=== PATIENT | female | born 1960 | race Caucasian/White ===

== ENCOUNTER 2016-12-15 10:02 | Emergency (ER) | payer OTHER, MEDICARE ==
[~2016-12-15] VITALS: Ht 165.1 cm; Wt 86.2 kg
[~2016-12-15 10:02] MED LIST: ABILIFY 15MG15 MG PO; ADDERALL20 MG PO; ADVAIR DISKUS 21 DSK INH; BIAXIN FILMTAB250 MG PO; CHANTIX0.5 MG PO; FLOMAX(MONOGRA0.4 MG PO; MIRALAX17 GM PO; MS CONTIN30 MG PO; MS CONTIN60 MG PO; MSIR PO; NICODERM C21 MG/24 H TOP; OSCAL ULTRA 6001 TAB PO; OXYCODONE HCL15 MG PO; PERCOCET 325 MG1 TA2 PO; PREDNISONE 20MG20 MG PO; PROMETH/CODEIN120 ML PO; PROZAC20 M1 PO; SEROQUEL (MONO200 MG PO; SPIRIVA1 PUF INH; Senokot S PO; TRAZODONE100 MG PO; VENTOLIN1 PUF INH; VITAMIN D1000 IU PO
--- NOTE | 2016-12-15 10:22 | ED GENERAL ADULT ---
History of Present Illness General Chief Complaint: Chest Pain Stated Complaint: CP,SOB Source: patient, old records Exam Limitations: no limitations Vital Signs & Intake/Output Vital Signs & Intake/Output Vital Signs Date Time Temp Pulse Resp B/P Pulse O2 O2 Flow FiO2 Ox Delivery Rate 12/15 1151 Room Air Room Air 12/15 1150 96.5 95 20 158/71 93 Room Air Room Air 12/15 1011 97.9 112 20 131/87 99 Room Air Allergies Coded Allergies: MDX - Ibuprofen (Ibuprofen) (Severe, ANAPHALACTIC 01/07/15) MDX - PCN (penicillin) (PCN (PENICILLIN)) (Intermediate, RASH 01/07/15) codeine (Intermediate, RASH 12/15/16) MDX - Ketorolac (From TORADOL) (RASH/HIVES 01/07/15) MDX - Nsaid (Nsaid) (ANAPHYLAXIS 01/07/15) Reconcile Medications Albuterol Sulfate (Ventolin) 1 UNIT PUF 2 PUF INH Q4-6 PRN PRN SOB . Aripiprazole (Abilify) 15 MG TABLET 1 TAB PO QPM MENTAL HEALTH (Reported) Azithromycin 250 MG TABLET 1 DP PO AD lungs 2 the first day followed by 1 for days 2-5 Benzonatate 200 MG CAPSULE 1 CAP PO TID PRN COUGH [place]/Ca/Cu/MG/Mn/Vit C/Vit (Oscal Ultra 600) 1 TAB TAB 1 TAB PO DAILY SUPPLEMENT (Reported) Cholecalciferol (Vitamin D3) 1,000 UNIT TABLET 1 TAB PO DAILY low vit D ( Reported) DEXTROAMPHETAMINE/AMPHETAMINE (Adderall 20 MG Tablet) 20 MG TABLET 1 TAB PO BID MENTAL HEALTH (Reported) Fluoxetine Hydrochloride (Prozac) 20 MG CAP 1 CAP PO DAILY MENTAL HEALTH ( Reported) FLUTICASONE/SALMETEROL (Advair 250-50 Diskus) 250 MCG-50 MCG/DOSE BLST.W.DEV 1 PUFF INH BID COPD (Reported) Morphine Sulfate (Ms Contin) 30 MG TABLET.ER 1 TAB PO BID PRN PAIN OXYCODONE HCL (Oxycodone HCl) 15 MG TABLET 1 TAB PO TID PRN PAIN OXYCODONE HCL/ACETAMINOPHEN (Percocet 5-325 MG Tablet) 325 MG/5 MG TAB 1 TAB PO Q4-6 PRN PRN BREAKTHROUGH PAIN Oxycodone HCl/Acetaminophen (Percocet 5-325 MG Tablet) 5 MG-325 MG TABLET 1 TAB PO Q6H PRN PAIN Prednisone 10 MG TABLET 0 PO DAILY COPD 40 MG FOR 2 DAYS, 30 MG FOR 2 DAYS, 20MG FOR 2 DAYS, 10MG FOR 2 DAYS. Quetiapine Fumarate (Seroquel) 200 MG TABLET 1 TAB PO QPM MENTAL HEALTH ( Reported) Tamsulosin Hydrochloride (Flomax) 0.4 MG CAP.ER.24H 1 CAP PO DAILY KIDNEY STONE Tiotropium [place] (Spiriva) 18 MCG CAP.W.DEV 1 PUFF INH DAILY PRN SOB/ WHEEZING (Reported) TRAZODONE HCL (Trazodone HCl) 100 MG TABLET 1 TAB PO QPM SLEEP (Reported) VARENICLINE TARTRATE (Chantix) 0.5 MG TABLET 1 TAB PO BID SMOKING CESSATION ( Reported) Triage Note: 56 YEAR OLD FEMALE HISTORY OF COPD/PNA, STATES THAT FOR THE PAST WEEK SHE HAS HAD A COUGH CLEAR SPUTUM AND SOB AND INTERMITTANT ALL OVER CP. CP HAS BEEN CONSTANT SINCE LAST PM, NON RADIATING AND INCREASES WHEN SHE TAKES A DEEP BREATH. SINUS TACH ON MONITOR AND O2 SAT 99 % ON RA. Triage Nurses Notes Reviewed? yes HPI: Patient is a 56-year-old female presents complaining of cough, shortness of breath, left-sided chest pain. Cough 1 week, chest pain onset yesterday. Chest pain is a sharp pain is moderate at rest, severe with coughing and deep breath. Patient has been using her inhaler with minimal improvement. Cough is with white sputum production. Patient denies fevers, chills, lower extremity pain, lower extremity swelling Patient received an influenza vaccination this season. Past History Travel History Traveled to [place] past 21 day No Medical History Any Pertinent Medical History? 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) Gastrointestinal: NONE Hepatic: NONE Renal: KIDNEY STONES Musculoskeletal: NONE Psychiatric: NONE Endocrine: NONE Blood Disorders: NONE Cancer(s): NONE QC TECH/Reproductive: NONE History of MRSA: No History of VRE: No History of CDIFF: No Pneumonia Vaccine: 07/03/11 Influenza Vaccine: 07/12/14 Surgical History Surgical History: partial removal of left lung Psychosocial History Who do you live with Significant Other Services at Home None What is your primary language Azerbaijani Tobacco Use: Current Daily Use Daily Tobacco Use Amount/Type: => 5 Cigarettes daily ETOH Use: denies use Illicit Drug Use: denies illicit drug use Family History Family History, If Any: MOTHER FHx: bipolar disorder FATHER FHx: prostate cancer SISTER FH: diabetes mellitus GRANDMOTHER FHx: ovarian cancer Hx Contributory? No Review of Systems Review of Systems Constitutional: Denies: chills, fever. EENTM: Reports: no symptoms. Respiratory: Reports: cough, short of breath, wheezing. Cardiovascular: Reports: chest pain. GI: Reports: no symptoms. Genitourinary: Reports: no symptoms. Musculoskeletal: Reports: no symptoms. Skin: Reports: no symptoms. Neurological/Psychological: Reports: no symptoms. Hematologic/Endocrine: Reports: no symptoms. Physical Exam Physical Exam General Appearance: well developed/nourished, alert, awake Head: atraumatic, normal appearance Eyes: Bilateral: normal appearance, PERRL, EOMI. Ears, Nose, Throat: normal pharynx, normal ENT inspection, hearing grossly normal Neck: normal inspection, supple, full range of motion Respiratory: normal breath sounds, no respiratory distress, lungs clear, mild anterior left chest wall tenderness Cardiovascular: tachycardia, regular rhythm, no appreciable murmur Peripheral Pulses: 2+ dorsalis pedis (R), 2+ dorsalis pedis (L) Gastrointestinal: soft, non-tender Back: normal inspection, normal range of motion Extremities: normal inspection, normal capillary refill, normal range of motion, no edema, no calf tenderness Neurologic/Psych: no motor/sensory deficits, awake, alert, oriented x 3, normal gait, normal mood/affect Skin: intact, normal color, warm/dry Lymphatic: no anterior cervical laron Core Measures ACS in differential dx? Yes ASA ordered for poss ACS? No-ACS ruled out CVA/TIA Diagnosis: No Severe Sepsis Present: No Septic Shock Present: No Progress Differential Diagnoses I considered the following diagnoses in my evaluation of the patient: COPD, CHF, acute coronary syndrome, pulmonary embolism, pleurisy, pneumonia Plan of Care: Orders Procedure Date/time Status LACTIC ACID 12/15 1320 Active Telemetry/Chief Sustainability Officer 12/15 1020 Active TROPONIN LEVEL 12/15 1020 Complete LACTIC ACID 12/15 1020 Complete D-DIMER 12/15 1020 Complete COMPREHENSIVE METABOLIC PANEL 12/15 1020 Complete CBC WITHOUT DIFFERENTIAL 12/15 1020 Complete EKG 12/15 1003 Active Current Medications Sig/Leda Start time Last Medication Dose Stop Time Status Admin Guaifenesin/Codeine 10 ML ONCE ONE 12/15 1030 CAN Phosphate 12/15 1031 (Robitussin AC) Laboratory Tests 12/15/16 1035: Anion Gap 12, Estimated GFR > 60, BUN/Creatinine Ratio 23.3, Glucose 104 H, Lactic Acid 1.9, Calcium 10.3 H, Total Bilirubin 0.6, AST 20, ALT 41, Alkaline Phosphatase 103, Troponin I < 0.01, Total Protein 7.8, Albumin 4.8, Globulin 3.0 , Albumin/Globulin Ratio 1.6, D-Dimer < 200, CBC w Diff NO MAN DIFF REQ, RBC 5.34, MCV 90.3, MCH 29.8, RDW 13.9, MPV 7.8, Gran % 58.1, Lymphocytes % 34.4, Monocytes % 5.1, Eosinophils % 2.2, Basophils % 0.2, Absolute Granulocytes 5.1, Absolute Lymphocytes 3.0, Absolute Monocytes 0.4, Absolute Eosinophils 0.2, Absolute Basophils 0, PUBS MCHC 33.0 12/15/2016 12:03:10 PM: Discussed with Dr. Hope: Place patient on prednisone taper starting with 40 mg and decrease by 10 mg every 2 days, azithromycin, have patient contact the office when she has completed the prednisone taper for follow-up. Patient's chest pain greater than 12 hours with negative troponin and no ischemic EKG changes. D-dimer negative, chest x-ray unremarkable. Patient ambulatory without respiratory distress. Appears stable for discharge with outpatient follow-up. (REYNA STEVEN,PEDRO) Diagnostic Imaging: Viewed by Me: Radiology Read. Discussed w/RAD: Radiology Read. Radiology Impression: PATIENT: MICHEAL CORTEZ PRESENT AGE: 56 PATIENT ACCOUNT NO: [id number] : 56 LOCATION: [facility] ORDERING PHYSICIAN: PEDRO STEVEN SERVICE DATE: 12/15/16 EXAM TYPE: RAD - XRY-CHEST XRAY, PA AND LATERAL EXAMINATION: XR CHEST CLINICAL INFORMATION: Cough with sputum production, dyspnea, and chest pain COMPARISON: 08/30/2016 TECHNIQUE : 2 views of the chest were obtained. FINDINGS: The cardiomediastinal silhouette is normal. The lungs are clear with increased lucency in the upper lobes, unchanged. No consolidation, pulmonary edema, pleural effusion, or pneumothorax. Mild multilevel degenerative changes of the spine without acute osseous abnormality. IMPRESSION: No acute abnormality. DICTATED BY: NIALL LU MD DATE/TIME DICTATED:12/15/161138 HEADING MACHINE OPERATOR:NORRIS DATE/TIME TRANSCRIBED:12/15/161138 CONFIDENTIAL, DO NOT COPY WITHOUT APPROPRIATE AUTHORIZATION. <Electronically signed in Other Vendor System> SIGNED BY: NIALL LU MD 12/15/16 1144 Initial ED EKG: sinus tachycardia 111 bpm normal axis, normal intervals, no acute ST/T-wave abnormalities Prior EKG: unchanged Rhythm Strip: normal sinus rhythm Departure Departure Disposition: HOME OR SELF CARE Condition: Stable Clinical Impression Primary Impression: COPD exacerbation Secondary Impressions: Pleuritic chest pain Referrals: BALBIR HOPE MD Additional Instructions: Follow-up with your drilling contractor for further evaluation. Call Dr. Hope when you have completed the Prednisone. Use your albuterol inhaler every 4 hours as needed for shortness of breath and wheezing. Return to the ER if breathing worsening, unable to stay hydrated or worsening of symptoms. Departure Forms: Customer Survey General Discharge Information Prescriptions: Current Visit Scripts Azithromycin 1 DP PO AD #6 TAB 2 the first day followed by 1 for days 2-5 Prednisone 0 PO DAILY #20 TAB 40 MG FOR 2 DAYS, 30 MG FOR 2 DAYS, 20MG FOR 2 DAYS, 10MG FOR 2 DAYS. Benzonatate 1 CAP PO TID PRN COUGH #30 CAP Oxycodone HCl/Acetaminophen (Percocet 5-325 MG Tablet) 1 TAB PO Q6H PRN PAIN #8 TAB Critical Care Note Critical Care Note Critical Care Time: non-applicable
[2016-12-15 10:48] LABS: ABSOLUTE BASOPHIL COUNT 0 /CUMM (0.0-0.2); ABSOLUTE EOSINOPHIL COUNT 0.2 /CUMM (0.0-0.7); ABSOLUTE GRANULOCYTE CT 5.1 /CUMM (1.4-6.5); ABSOLUTE MONOCYTE COUNT 0.4 /CUMM (0.10-0.60); BASOPHIL % 0.2 % (0.0-2.0); EOSINOPHIL % 2.2 % (0-5); GRANULOCYTE % 58.1 % (42.2-75.2); HEMATOCRIT 48.2 % (37-47); MEAN CORPUSCULAR HGB 29.8 PG (27.0-31.0); MEAN CORPUSCULAR VOLUME 90.3 FL (81.0-99.0); MEAN PLATELET VOLUME 7.8 FL (7.4-10.4); PLATELET COUNT 197 /CUMM (130-400); RBC DISTRIBUTION WIDTH 13.9 % (11.5-14.5); RED BLOOD CELL CT 5.34 /CUMM (4.20-5.40); WHITE BLOOD CELL COUNT 8.8 /CUMM (4.8-10.8)
--- NOTE | 2016-12-15 11:44 | RADIOLOGY REPORT ---
EXAMINATION: XR CHEST CLINICAL INFORMATION: Cough with sputum production, dyspnea, and chest pain COMPARISON: 08/30/2016 TECHNIQUE: 2 views of the chest were obtained. FINDINGS: The cardiomediastinal silhouette is normal. The lungs are clear with increased lucency in the upper lobes, unchanged. No consolidation, pulmonary edema, pleural effusion, or pneumothorax. Mild multilevel degenerative changes of the spine without acute osseous abnormality. IMPRESSION: No acute abnormality.
[2016-12-15 11:50] VITALS: BP 158/71
[2016-12-15] MEDS ORDERED: PERCOCET 5-3251 EACH PO (12:07)
[2016-12-15] MEDS ORDERED: BENZONATATE200 M1 PO (12:07)
[2016-12-15] MEDS ORDERED: PREDNISONE10 M2 PO (12:07)
[2016-12-15] MEDS ORDERED: AZITHROMYCIN250 M1 PO (12:07)
== END 2016-12-15 12:24 ==
LOC: ERH 10:02
PROVIDERS: Physician Assistant
DX: J44.1 Chronic obstructive pulmonary disease with (acute) exacerbation (principal); R07.89 Other chest pain; F17.210 Nicotine dependence, cigarettes, uncomplicated
CPT/HCPCS: 93005; 93010; 96374; 96375; J2930

== ENCOUNTER 2017-09-30 08:39 | Inpatient (IN) | payer OTHER ==
[~2017-09-30] VITALS: Ht 165.1 cm; Wt 86.2 kg
[~2017-09-30 08:39] MED LIST changes: +ABILIFY10 M1 PO; +ADVAIR 250-501 EACH INH; +AZITHROMYCIN250 M1 PO; +AZITHROMYCIN500 M3 PO; +BENZONATATE200 M1 PO; +GUAIFENESI100 MG/5 M PO; +LEVAQUIN500 M1 PO; +LYRICA25 M1 PO; +PERCOCET 5-3251 EACH PO; +PREDNISONE10 M2 PO; +PREDNISONE20 M1 PO; +PROAIR HFA8.5 GM INH; +PROZAC20 M2 PO; +SPIRIVA18 MCG INH; +TRAMADOL HCL50 M1 PO; +VALIUM5 M2 PO
--- NOTE | 2017-09-30 08:47 | ED DYSPNEA/ASTHMA COMPLAINT ---
History of Present Illness General Chief Complaint: Dyspnea (COPD, CHF, Other) Stated Complaint: DIFF BREATHING Source: patient, old records, EMS Exam Limitations: no limitations Vital Signs & Intake/Output Vital Signs & Intake/Output Vital Signs Date Time Temp Pulse Resp B/P B/P Pulse O2 O2 Flow FiO2 Mean Ox Delivery Rate 09/30 1029 100.4 106 20 121/67 93 Nasal 2.0L Cannula 09/30 1017 99.7 09/30 0901 118 22 93 Room Air 09/30 0851 Room Air 09/30 0843 99.7 128 21 150/80 98 Nasal 4.0L Cannula Allergies Coded Allergies: NSAIDS (Non-Steroidal Anti-Inflamma (Severe, ANAPHYLAXIS 03/23/17) ibuprofen (Severe, ANAPHYLAXIS 03/23/17) Penicillins (Intermediate, RASH 03/23/17) codeine (Intermediate, RASH 12/15/16) gabapentin (Intermediate, SWOLLEN FEET 03/23/17) ketorolac (Intermediate, RASH\HIVES 03/23/17) Reconcile Medications Albuterol Sulfate (Proair Hfa) 90 MCG HFA.AER.AD 2 PUF INH PRN COPD/EMPHYSEMA (Reported) Aripiprazole (Abilify) 10 MG TABLET 1 TAB PO QAM MENTAL HEALTH (Reported) Fluoxetine HCl (Prozac) 20 MG CAPSULE 1 CAP PO QAM MENTAL HEALTH (Reported) Fluticasone/Salmeterol (Advair 250-50 Diskus) 250 MCG-50 MCG/DOSE BLST.W.DEV 1 PUF INH BID COPD/EMPHYSEMA (Reported) Tiotropium [place] (Spiriva) 18 MCG CAP.W.DEV 1 CAP INH DAILY COPD/EMPHYSEMA (Reported) Triage Note: PT BIBA FOR DIFF BREATHING.. HX COPD AND EMPHYSEMA GRANDCHILDREN HAVE BEEN ILL THIS WEEK AND PT WAS BABYSITTING THEM. RIGHT UPPER LOBE REMOVAL PER PT.. PT WHEEZING THROUGHOUT. PT STATES SHE GETS SOB ON EX, 20 LAC STARTED IN FIELD. FINGER STICK 127 PER EMS Triage Nurses Notes Reviewed? yes HPI: Patient presents with a four-day history of worsening shortness of breath and coughing. Patient has a history of COPD and emphysema. Patient was babysitting her grandchildren and they had URI type symptoms. Patient has had subjective fevers and chills. She states that she has a home O2 saturation monitor and this morning her oxygen saturation was 83% and it decreased down to 80% with ambulation. Patient has had a productive cough with brown sputum. Patient states he is now getting chest and back pain with the coughing. The pain is sharp in nature. The pain radiates as noted above. The pain is exacerbated with coughing. At its worst the pain is 10 out of 10. Past History Travel History Traveled to [place] past 21 day No Medical History Any Pertinent Medical History? 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 MANAGER/Reproductive: NONE History of MRSA: No History of VRE: No History of CDIFF: No Surgical History Surgical History: appendectomy, hysterectomy, partial removal of left lung appendicectomy Schwanoma(L4,5) removal in 1992 Psychosocial History Who do you live with Significant Other Services at Home None What is your primary language Danish Tobacco Use: Quit >30 days ago ETOH Use: denies use Illicit Drug Use: denies illicit drug use Family History Family History, If Any: MOTHER FHx: bipolar disorder FATHER FHx: prostate cancer SISTER FH: diabetes mellitus GRANDMOTHER FHx: ovarian cancer Hx Contributory? No Review of Systems Review of Systems Constitutional: Reports: see HPI, chills, fever. EENTM: Reports: no symptoms. Respiratory: Reports: see HPI, cough, short of breath, sputum production, wheezing. Cardiovascular: Reports: see HPI, chest pain. GI: Reports: no symptoms. Genitourinary: Reports: no symptoms. Musculoskeletal: Reports: see HPI, back pain. Skin: Reports: no symptoms. Neurological/Psychological: Reports: no symptoms. Hematologic/Endocrine: Reports: no symptoms. Immunologic/Allergic: Reports: no symptoms. All Other Systems: Reviewed and Negative Physical Exam Physical Exam General Appearance: well developed/nourished, alert, awake, anxious, moderate distress Head: atraumatic, normal appearance Eyes: Bilateral: PERRL, EOMI. Ears, Nose, Throat: normal pharynx, normal ENT inspection Neck: normal inspection, supple, full range of motion Respiratory: decreased breath sounds, rhonchi, wheezing, respiratory distress Cardiovascular: regular rate/rhythm, normal peripheral pulses Gastrointestinal: normal bowel sounds, soft Extremities: normal inspection, normal capillary refill, normal range of motion, no edema Neurologic/Psych: no motor/sensory deficits, awake, alert, oriented x 3, normal mood/affect Skin: intact, normal color, warm/dry Lymphatic: no anterior cervical laron Core Measures ACS in differential dx? No CVA/TIA Diagnosis No Sepsis Present: No Sepsis Focused Exam Completed? No Progress Differential Diagnosis: asthma, AMI, bronchitis, CHF, COPD, pulmonary embolism, pneumonia, pneumothorax Plan of Care: Orders Procedure Date/time Status Regular Diet 09/30 D Active ED Holding Orders 09/30 1224 Active Admit to inpatient 09/30 1224 Active Vital Signs 09/30 1224 Active Code Status 09/30 1224 Active RAPID VIRAL INFLUENZA A 09/30 0846 Complete BLOOD CULTURE 09/30 0846 Active URINALYSIS 09/30 0846 Complete TROPONIN LEVEL 09/30 0846 Complete LACTIC ACID 09/30 0846 Complete COMPREHENSIVE METABOLIC PANEL 09/30 0846 Complete CBC WITHOUT DIFFERENTIAL 09/30 0846 Complete EKG 09/30 0846 Active Current Medications Sig/Leda Start time Last Medication Dose Stop Time Status Admin Azithromycin 500 MG ONCE ONE 09/30 1000 CAN (Zithromax) 09/30 1300 Sodium Chloride 250 ML (Normal Saline 0.9%) Laboratory Tests 09/30/17 1146: Lactic Acid Cancelled 09/30/17 1109: Urine Color YEL, Urine Clarity HAZY H, Urine pH 6.0, Ur Specific [place] 1.025, Urine Protein TRACE H, Urine Ketones 15 H, Urine Nitrite NEG, Urine Bilirubin NEG@ICTO, Urine Urobilinogen 0.2, Ur Leukocyte Esterase TRACE H, Ur Microscopic SEDIMENT EXAMINED, Urine RBC 5-10 H, Urine WBC 1-3 H, Ur Epithelial Cells FEW, Urine Bacteria MOD H, Urine Hemoglobin MOD H, Urine Glucose NEG 09/30/17 0945: Anion Gap 14, Estimated GFR > 60, BUN/Creatinine Ratio 24.0, Glucose 124 H, Lactic Acid 1.2, Calcium 10.0, Total Bilirubin 0.4, AST 26, ALT 41, Alkaline Phosphatase 106, Troponin I < 0.01, Total Protein 7.4, Albumin 4.5, Globulin 2.9 , Albumin/Globulin Ratio 1.6, CBC w Diff NO MAN DIFF REQ, RBC 5.05, MCV 91.6, MCH 30.5, RDW 13.2, MPV 8.2, Gran % 81.2 H, Lymphocytes % 12.9 L, Monocytes % 4.5, Eosinophils % 1.2, Basophils % 0.2, Absolute Granulocytes 6.6 H, Absolute Lymphocytes 1.0 L, Absolute Monocytes 0.4, Absolute Eosinophils 0.1, Absolute Basophils 0, PUBS MCHC 33.2 Microbiology 09/30 1038 NASOPHARYN: Influenza Virus A & B Rapid Smear - COMP 09/30 945 BLOOD: Blood Culture - RECD 09/30 930 BLOOD: Blood Culture - RECD Diagnostic Imaging: Viewed by Me: Radiology Read. Discussed w/RAD: Radiology Read. CXR Impression: PATIENT: MICHEAL CORTEZ PRESENT AGE: 57 PATIENT ACCOUNT NO: [id number] : 56 LOCATION: [facility] ORDERING PHYSICIAN: Kayden Maloney MD SERVICE DATE: 09/30/17 EXAM TYPE: RAD - XRY-CHEST XRAY, TWO VIEWS EXAMINATION: XR CHEST CLINICAL INFORMATION: Productive cough COMPARISON: 07/19/2017 TECHNIQUE: 2 views of the chest were obtained. FINDINGS: The cardiac silhouette is not enlarged. Moderate peribronchial thickening is seen most prominent in the right lower lobe. No focal consolidation or pleural effusion. There is a moderate thoracic kyphosis. IMPRESSION: Moderate small airways changes identified with peribronchial thickening which may reflect bronchitis/asthma. The findings are slightly more prominent than prior. No focal consolidation or pleural effusion. DICTATED BY: Khalif Taveras MD DATE/TIME DICTATED:09/30/17936 PIECE JOBBER:NORRIS DATE/TIME TRANSCRIBED:936 CONFIDENTIAL, DO NOT COPY WITHOUT APPROPRIATE AUTHORIZATION. < Electronically signed in Other Vendor System> SIGNED BY: Khalif Taveras MD 09/30/17941 Initial ED EKG: S TACH, IVCD, NSSTT CHANGES, NO CHNAGE FROM PRIOR Prior EKG: unchanged Rhythm Strip: sinus tachycardia Comments: Patient is feeling slightly better. We will check an ambulatory room air saturation. AMB RA SAT 89% AND PT BECAME SYMPTOMATIC Departure Departure Disposition: STILL A PATIENT Condition: Fair Clinical Impression Primary Impression: COPD exacerbation Referrals: Patient Has No Primary Care Dr (PCP/Family) Departure Forms: Customer Survey General Discharge Information Admission Note Spoke With: Katherine Acosta MD Documentation of Exam: Documentation of any treatments & extenuating circumstances including Concerns Regarding Discharge (functional status, medication knowledge or non-compliance, living conditions, etc.) that warrant an admission rather than observation: [IV ABX, IV STEROIDS, NEBS, PULM CONSULT, RESP EVAL AND TREATMENT] Critical Care Note Critical Care Note Critical Care Time: non-applicable
--- NOTE | 2017-09-30 09:42 | RADIOLOGY REPORT ---
EXAMINATION: XR CHEST CLINICAL INFORMATION: Productive cough COMPARISON: 07/19/2017 TECHNIQUE: 2 views of the chest were obtained. FINDINGS: The cardiac silhouette is not enlarged. Moderate peribronchial thickening is seen most prominent in the right lower lobe. No focal consolidation or pleural effusion. There is a moderate thoracic kyphosis. IMPRESSION: Moderate small airways changes identified with peribronchial thickening which may reflect bronchitis/asthma. The findings are slightly more prominent than prior. No focal consolidation or pleural effusion.
[2017-09-30 10:02] LABS: ABSOLUTE BASOPHIL COUNT 0 /CUMM (0.0-0.2); ABSOLUTE EOSINOPHIL COUNT 0.1 /CUMM (0.0-0.7); ABSOLUTE GRANULOCYTE CT 6.6 /CUMM (1.4-6.5); ABSOLUTE MONOCYTE COUNT 0.4 /CUMM (0.10-0.60); BASOPHIL % 0.2 % (0.0-2.0); EOSINOPHIL % 1.2 % (0-5); GRANULOCYTE % 81.2 % (42.2-75.2); HEMATOCRIT 46.3 % (37-47); MEAN CORPUSCULAR HGB 30.5 PG (27.0-31.0); MEAN CORPUSCULAR HGB CONC 33.2 G/DL (33.0-37.0); MEAN CORPUSCULAR VOLUME 91.6 FL (81.0-99.0); MEAN PLATELET VOLUME 8.2 FL (7.4-10.4); PLATELET COUNT 205 /CUMM (130-400); RBC DISTRIBUTION WIDTH 13.2 % (11.5-14.5); RED BLOOD CELL CT 5.05 /CUMM (4.20-5.40); WHITE BLOOD CELL COUNT 8.1 /CUMM (4.8-10.8)
--- NOTE | 2017-09-30 14:03 | Admission Certification ---
Admission Certification Certification Statement - As attending physician, I certify that at the time of - admission, based on clinical presentation, severity of - symptoms, need for further diagnostic testing and - therapeutic interventions, and risk of adverse outcomes - without in-hospital treatment, in my clinical assessment, - this patient requires an acute hospital stay for a minimum - of two nights or longer. I have also considered psychsocial - factors such as support system, advanced age, financial - issues, cognitive issues, and failed out-patient treatments, - past re-admission history, safety of patient, and lack of - compliance as applicable. Specific rationale supporting this admission is: Acute COPD exacerbation with acute hypoxemic respiratory failure.
--- NOTE | 2017-09-30 14:03 | History & Physical ---
Desmond Villanueva 09/30/17 1402: General Information and HPI MD Statement: I have seen and personally examined MICHEAL CORTEZ and documented this H&P. The patient is a 57 year old F who presented with a patient stated chief complaint of shortness of breath. Source of Information: patient Exam Limitations: no limitations History of Present Illness: Ms. Cortez is 57 year old woman with COPD not on home O2, recurrent bronchitis, left lung upper lobectomy for suspected cancer in 2003, bipolar disorder, depression presented to the ED this morning for shortness of breath, wheezing, pleuritic chest pain and cough. Symptoms started day before yesterday, cough with chest tightness. Cough is productive, initially greenish yellow sputum, with subsequent expectorations of brown sputum and occasional blood streaks 2. No fevers, chills last night, requiring cold" 5 blankets to keep her warm". No recorded temperatures at home. Patient also developed severe shortness of breath to point that she could only walk less than 10 feet without dyspnea. O2 sats dropped low 80s last night. She had persistent wheezing, and used her albuterol inhaler multiple times last night with no effect. Of note, patient has not required her albuterol inhaler since , when she had her last exacerbation/bronchitis. This episode was treated as an outpatient by Dr. Lopez with prednisone and? Azithromycin. Compliant with her inhalers. Continues to smoke, approximately 4 cigarettes a day. Pleuritic chest pain-described as chest tightness, lasting around 40 minutes, worse with breathing and coughing, not positional. Occasional palpitations, no radiation. No orthopnea or PND. Recent onset leg swelling. No recent change in her medication list. Sick contacts-grandchildren with cough-nonproductive. No recent travel. No history of clots in legs or lungs. Family history significant for early heart attack in father and heart disease in mother. No urinary symptoms. No GI symptoms. Received flu shot this year. Pneumonia shot 5 years ago. Other systems reviewed and negative, exceptions above. Allergies/Medications Allergies: Coded Allergies: NSAIDS (Non-Steroidal Anti-Inflamma (Severe, ANAPHYLAXIS 03/23/17) ibuprofen (Severe, ANAPHYLAXIS 03/23/17) Penicillins (Intermediate, RASH 03/23/17) codeine (Intermediate, RASH 12/15/16) gabapentin (Intermediate, SWOLLEN FEET 03/23/17) ketorolac (Intermediate, RASH\\HIVES 03/23/17) Home Med list Albuterol Sulfate (Proair Hfa) 90 MCG HFA.AER.AD 2 PUF INH PRN COPD/EMPHYSEMA (Reported) Aripiprazole (Abilify) 10 MG TABLET 1 TAB PO QAM MENTAL HEALTH (Reported) Fluoxetine HCl (Prozac) 20 MG CAPSULE 1 CAP PO QAM MENTAL HEALTH (Reported) Fluticasone/Salmeterol (Advair 250-50 Diskus) 250 MCG-50 MCG/DOSE BLST.W.DEV 1 PUF INH BID COPD/EMPHYSEMA (Reported) Tiotropium [place] (Spiriva) 18 MCG CAP.W.DEV 1 CAP INH DAILY COPD/EMPHYSEMA (Reported) Past History Travel History Traveled to [place] past 21 day No Medical History Neurological: NONE EENT: NONE Cardiovascular: NONE Respiratory: COPD, emphysema, MASS (IN R LUNG) LT UPPER LOBECTOMY Gastrointestinal: NONE Hepatic: NONE Renal: KIDNEY STONES Musculoskeletal: NONE Psychiatric: NONE Endocrine: NONE Blood Disorders: NONE Cancer(s): NONE FISH FARMER/Reproductive: NONE History of MRSA: No History of VRE: No History of CDIFF: No Isolation History: Standard Surgical History Surgical History: appendectomy, hysterectomy, partial removal of left lung appendicectomy Schwanoma(L4,5) removal in 1992 Past Family/Social History Family History Relations & Conditions if any MOTHER FHx: bipolar disorder FATHER FHx: prostate cancer SISTER FH: diabetes mellitus GRANDMOTHER FHx: ovarian cancer Psychosocial History Who Do You Live With? boyfriend and his son Services at Home: None Primary Language: Armenian ETOH Use: denies use Illicit Drug Use: denies illicit drug use Living Will? no Functional Ability ADLs Independent: dressing, eating, toileting, bathing. Ambulation: independent IADLs Independent: shopping, housework, finances, food prep, telephone, transportation. Review of Systems Review of Systems Constitutional: Reports: see HPI. Exam & Diagnostic Data Last 24 Hrs of Vital Signs/I&O Vital Signs Date Time Temp Pulse Resp B/P B/P Pulse O2 O2 Flow FiO2 Mean Ox Delivery Rate 09/30 1256 100.1 109 20 122/70 93 Nasal 2.0L Cannula 09/30 1029 100.4 106 20 121/67 93 Nasal 2.0L Cannula 09/30 1017 99.7 09/30 0901 118 22 93 Room Air 09/30 0851 Room Air 09/30 0843 99.7 128 21 150/80 98 Nasal 4.0L Cannula Intake & Output 09/30 1600 09/30 0800 09/30 0000 Intake Total Output Total Balance Patient 190 lb Weight Weight Reported by Patient Measurement Method Physical Exam General Appearance Alert, Oriented X3, Cooperative, No Acute Distress Skin No Rashes, No Breakdown HEENT Atraumatic, PERRLA, EOMI, Mucous Membr. moist/pink Neck Supple Lymphatic Axillary nl, Cervical nl Cardiovascular Regular Rate, Normal S1, Normal S2 Lungs Clear to Auscultation, Normal Air Movement, Expiratory wheezes bilateral diffuse. Abdomen Normal Bowel Sounds, Soft, No Tenderness Extremities Normal Pulses, No Tenderness/Swelling, Trace edema Last 24 Hrs of Labs/Dg: Laboratory Tests 09/30/17 1146: Lactic Acid Cancelled 09/30/17 1109: Urine Color YEL, Urine Clarity HAZY H, Urine pH 6.0, Ur Specific [place] 1.025, Urine Protein TRACE H, Urine Ketones 15 H, Urine Nitrite NEG, Urine Bilirubin NEG@ICTO, Urine Urobilinogen 0.2, Ur Leukocyte Esterase TRACE H, Ur Microscopic SEDIMENT EXAMINED, Urine RBC 5-10 H, Urine WBC 1-3 H, Ur Epithelial Cells FEW, Urine Bacteria MOD H, Urine Hemoglobin MOD H, Urine Glucose NEG 09/30/17 0945: Anion Gap 14, Estimated GFR > 60, BUN/Creatinine Ratio 24.0, Glucose 124 H, Lactic Acid 1.2, Calcium 10.0, Total Bilirubin 0.4, AST 26, ALT 41, Alkaline Phosphatase 106, Troponin I < 0.01, Total Protein 7.4, Albumin 4.5, Globulin 2.9 , Albumin/Globulin Ratio 1.6, CBC w Diff NO MAN DIFF REQ, RBC 5.05, MCV 91.6, MCH 30.5, RDW 13.2, MPV 8.2, Gran % 81.2 H, Lymphocytes % 12.9 L, Monocytes % 4.5, Eosinophils % 1.2, Basophils % 0.2, Absolute Granulocytes 6.6 H, Absolute Lymphocytes 1.0 L, Absolute Monocytes 0.4, Absolute Eosinophils 0.1, Absolute Basophils 0, PUBS MCHC 33.2 Microbiology 09/30 1038 NASOPHARYN: Influenza Virus A & B Rapid Smear - COMP 09/30 945 BLOOD: Blood Culture - RECD 09/30 930 BLOOD: Blood Culture - RECD Diagnostic Data EKG Results Sinus Tachy Unchanged compared to previous EKG CXR Results IMPRESSION: Moderate small airways changes identified with peribronchial thickening which may reflect bronchitis/asthma. The findings are slightly more prominent than prior. No focal consolidation or pleural effusion. Assessment/Plan Assessment: 57-year-old woman with past medical history of COPD, recurrent bronchitis, bipolar disorder, depression here with shortness of breath, wheezing, productive cough continues to smoke actively recent discharges, last one in July with COPD exacerbation to be Admitted to general medicine floors for acute COPD exacerbation associated with hypoxemia. In the ED, patient is saturating well on 2 L, coughs with deep inspirations, able to complete sentences and maintain conversation. Of concern is her low- grade fever of 100.4, but with normal white count of lateral etiology is much more likely. 1. Acute COPD exacerbation and hypoxemia: Solu-Medrol 40 every 6 hours. TRC. Continue nebulizer treatments/home inhalers. Sputum culture. Hold off antibiotics for now. Monitor white count and fevers. Encourage by mouth intake , keep hydrated. 2. Chest pain syndrome: Likely related to her bronchitis. IV Tylenol when necessary. Unchanged EKG, tachycardia likely related to worsening breathing and anxiety. Rule out ACS with serial troponins and EKG. Check BNP (mild JVP on exam and trace bilateral lower extremity edema). Very low probability for PE. 3. Bipolar disorder: Continue home medications. Full code Regular diet. Pharmacological and mechanical DVT prophylaxis. As Ranked By This Provider Problem List: 1. COPD Core Measures/Misc (06/18) Acute Coronary Syndrome ACS Diagnosis: No Congestive Heart Failure Congestive Heart Failure Diagnosis No Cerebrovascular Accident CVA/TIA Diagnosis: No VTE (View Protocol) VTE Risk Factors Age>40 No Mechanical VTE Prophylaxis d/t Other No VTE Pharm Prophylaxis d/t Other Sepsis (View protocol) Sepsis Present: No Katherine Acosta MD 09/30/17 1449: Attending MD Review Statement Attending Statement Attending MD Statement: examined this patient, discuss w/resident/PA/BLACKSMITH HELPER, agreed w/resident/PA/BLACKSMITH HELPER, reviewed EMR data (avail), reviewed images Attending Assessment/Plan: 57-year-old female past medical history of COPD and bronchitis in June and July of this year, active tobacco use down to 4-5 cigarettes a day, previous right upper lobe lobectomy for suspected malignancy who is coming in with what appears to be an acute COPD exacerbation. She doesn't have any pneumonia on physical exam, her flu swab was negative but she did have multiple sick contacts with her grandchildren. In addition she has acute hypoxemic respiratory failure as evidenced by a room air sat of 83% and a sat of 89% on ambulation. Will bring her into [facility] med, treat her with IV steroids, TRC with nebs and give her azithromycin for a bacterial bronchitis. Put her on DVT prophylaxis, continue her psychiatric medications, tobacco cessation counseling and follow closely.
[2017-09-30 14:43] VITALS: BP 130/70
[2017-09-30 22:33] VITALS: BP 128/60
[2017-10-01 06:30] VITALS: BP 138/74
--- NOTE | 2017-10-01 07:25 | PN- Housestaff ---
[facility] 0724: Subjective Follow-up For: Acute on chronic hypoxic respiratory failure due to COPD exacerbation. Subjective: No overnight events. Patient remained afebrile overnight. Patient seen and examined this morning. She denied any chest pain, chills, fever, abdominal pain , lightheadedness, palpitation and dysuria. Patient still feeling dizzy or short of breath especially on exertion. She is using 2 L of oxygen and maintaining saturation 91%. Patient complaining of back pain 04/10. Patient has chronic back pain issues. She is eating and drinking fine. Review of Systems Constitutional: Reports: no symptoms. EENTM: Reports: no symptoms. Cardiovascular: Reports: no symptoms. Respiratory: Reports: short of breath. Gastrointestinal: Reports: no symptoms. Genitourinary: Reports: no symptoms. Musculoskeletal: Reports: back pain. Neurological/Psychological: Reports: no symptoms. Objective Last 24 Hrs of Vital Signs/I&O Vital Signs Date Time Temp Pulse Resp B/P B/P Pulse O2 O2 Flow FiO2 Mean Ox Delivery Rate 10/01 0845 93 Nasal 2.0L Cannula 10/01 0630 98.1 108 22 138/74 91 Nasal Cannula 10/01 0000 Nasal 2.0L Cannula 09/30 2233 97.8 93 22 128/60 92 Nasal Cannula 09/30 2224 Nasal 2.0L Cannula 09/30 1600 Nasal 2.0L Cannula 09/30 1443 98.3 113 20 130/70 94 Nasal 2.0L Cannula 09/30 1441 93 Nasal 2.0L Cannula 09/30 1256 100.1 109 20 122/70 93 Nasal 2.0L Cannula 09/30 1029 100.4 106 20 121/67 93 Nasal 2.0L Cannula 09/30 1017 99.7 Intake & Output 10/01 1600 10/01 0800 10/01 0000 Intake Total 200 Output Total Balance 200 Intake, Oral 200 Physical Exam General Appearance: Alert, Oriented X3, Cooperative, No Acute Distress Skin Temp/Moisture Exam: Warm/Dry HEENT: Atraumatic, PERRLA, EOMI Neck: Supple Cardiovascular: Normal S1, Normal S2 Lungs: wheezing b/l with decreased air movement Abdomen: Soft, No Tenderness Neurological: Normal Speech, Strength at 5/5 X4 Ext, Normal Tone, Sensation Intact Extremities: No Edema Assessment/Plan Assessment: 57-year-old woman with past medical history of COPD, recurrent bronchitis, bipolar disorder, depression here with shortness of breath, wheezing, productive cough continues to smoke actively recent discharges, last one in July with COPD exacerbation to be Admitted to general medicine floors for acute COPD exacerbation associated with hypoxemia. Acute hypoxic respiratory failure due to COPD exacerbation: -We will continue supplemental oxygen to maintain saturation above 90%. -Patient still had wheezing and exertional dyspnea we will continue IV steroids. -TRC nebulization as needed -We'll follow the sputum and blood cultures. -We will continue azithromycin. Chronic back pain: -We will continue IV morphine every 6 when necessary -We will continue Percocet 1 tablet every 6 when necessary -We will avoid high dose of morphine or opiates to prevent respiratory Depression. Smoking cessation: -Will consult the patient for smoking cessation -We will help her with nicotine patch. Bipolar disorder: -We will continue her home meds. DVT prophylaxis: Mechanical and Lovenox CODE STATUS: Full code Problem List: 1. Back pain 2. Acute respiratory failure with hypoxia 3. COPD exacerbation Pain Ratin Pain Location: back Pain Goal: Pain 4 or less Pain Plan: percocet and morphine fpr moderate to severe pain Tomorrow's Labs & Rationales: cbc/bep Katherine Acosta MD 10/01/17 0901: Attending MD Review Statement Attending Statement Attending MD Statement: examined this patient, discuss w/resident/PA/PLUNGER SHOVEL OPERATOR, reviewed EMR data (avail), discussed with nursing, reviewed images Attending Assessment/Plan: Patient is still fairly short of breath. She says she has a lot of pain and that's from excessive coughing. 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 She is requesting morphine parenterally. I explained at length the dangers of depressing the respiratory status. At this point will order low- dose morphine 2 mg IV every 6 when necessary for moderate pain and Percocet 1 tab every 6 by mouth for mild pain. Given the wheezing in a patient with underlying COPD, here with acute hypoxemic respiratory failure and bronchospasm I will continue the IV steroids as is with by mouth azithromycin for a bacterial bronchitis. And follow closely.
[2017-10-01 09:12] LABS: ABSOLUTE BASOPHIL COUNT 0 /CUMM (0.0-0.2); ABSOLUTE EOSINOPHIL COUNT 0 /CUMM (0.0-0.7); BASOPHIL % 0 % (0.0-2.0); EOSINOPHIL % 0 % (0-5); MEAN CORPUSCULAR HGB 31.1 PG (27.0-31.0); RED BLOOD CELL CT 4.76 /CUMM (4.20-5.40)
[2017-10-01 09:21] LABS: ABSOLUTE GRANULOCYTE CT 12.4 /CUMM (1.4-6.5); ABSOLUTE MONOCYTE COUNT 0.3 /CUMM (0.10-0.60); HEMATOCRIT 43.7 % (37-47); MEAN CORPUSCULAR HGB CONC 33.9 G/DL (33.0-37.0); MEAN CORPUSCULAR VOLUME 91.8 FL (81.0-99.0); MEAN PLATELET VOLUME 8.3 FL (7.4-10.4); PLATELET COUNT 236 /CUMM (130-400); RBC DISTRIBUTION WIDTH 12.9 % (11.5-14.5)
[2017-10-01 09:23] LABS: WHITE BLOOD CELL COUNT 13.7 /CUMM (4.8-10.8)
[2017-10-01 09:41] LABS: GRANULOCYTE % 90.7 % (42.2-75.2)
[2017-10-01 15:30] VITALS: BP 130/64
[2017-10-01 21:20] VITALS: BP 160/82
[2017-10-02 06:21] VITALS: BP 130/78
--- NOTE | 2017-10-02 08:49 | PN- Housestaff ---
Raz KEYS,Kayden 10/02/17 0849: Subjective Follow-up For: Acute on chronic hypoxic respiratory failure COPD exacerbation Subjective: Patient was seen and examined at bedside. She is resting comfortably. She had no acute events overnight. Patient states that overall she is feeling worse, with mild shortness of breath, worsening nonproductive cough. Her chest pain is well-controlled. She currently denies any nausea, vomiting, chills. Review of Systems Constitutional: Denies: chills, fever. Cardiovascular: Denies: chest pain, palpitations. Respiratory: Reports: cough, short of breath. Denies: sputum production, wheezing. Gastrointestinal: Reports: no symptoms. Genitourinary: Reports: no symptoms. Musculoskeletal: Reports: no symptoms. Objective Last 24 Hrs of Vital Signs/I&O Vital Signs Date Time Temp Pulse Resp B/P B/P Pulse O2 O2 Flow FiO2 Mean Ox Delivery Rate 10/02 0830 92 Nasal 2.0L Cannula 10/02 0621 97.3 98 20 130/78 90 Nasal 2.0L Cannula 10/02 0000 90 Nasal 2.0L Cannula 10/01 2120 97.4 113 28 160/82 90 Nasal 2.0L Cannula 10/01 2001 92 Nasal 2.0L Cannula 10/01 1607 90 Nasal 2.0L Cannula 10/01 1600 Nasal 2.0L Cannula 10/01 1530 98.1 115 18 130/64 91 Intake & Output 10/02 1600 10/02 0800 10/02 0000 Intake Total 500 260 Output Total Balance 500 260 Intake, IV 20 20 Intake, Oral 480 240 Physical Exam General Appearance: Alert, Oriented X3, Cooperative Skin Temp/Moisture Exam: Warm/Dry Cardiovascular: Regular Rate, Normal S1, Normal S2 Lungs: diminished breath sounds diffuselywith scant wheezing Abdomen: Normal Bowel Sounds, Soft, No Tenderness Extremities: No Clubbing, No Cyanosis, No Edema Current Medications: Current Medications Sig/Leda Start time Last Medication Dose Route Stop Time Status Admin Acetaminophen 650 MG Q6P PRN 09/30 1400 AC PO Acetaminophen 1,000 MG Q6P PRN 09/30 1400 AC 09/30 IV 1606 Albuterol Sulfate 3 ML EVERY 4 HRS/AWAKE 10/01 0800 AC 10/02 INH 0827 Albuterol Sulfate 2 PUF Q4P PRN 09/30 1415 AC INH Aripiprazole 10 MG QAM 10/01 1000 AC 10/01 PO 0838 Azithromycin 250 MG DAILY 10/01 1000 AC 10/01 PO 10/04 1001 0837 Benzonatate 100 MG Q8H 10/02 1400 AC PO Benzonatate 100 MG TID 10/01 1600 DC 10/02 PO 0457 Budesonide/ 2 PUF BID 09/30 1400 AC 10/01 Formoterol Fumarate INH 2059 Enoxaparin Sodium 40 MG DAILY 10/01 1000 AC 10/01 SC 0839 Fluoxetine HCl 20 MG QAM 10/01 1000 AC 10/01 PO 0838 Guaifenesin 600 MG Q12 09/30 1358 AC 10/01 PO 2059 Methylprednisolone 40 MG Q6 09/30 1800 AC 10/02 IV 10/03 1201 0457 Morphine Sulfate 2 MG Q6P PRN 10/01 0900 AC 10/02 IV 0423 Nicotine 14 MG DAILY 09/30 1708 AC 10/01 TOP 0836 Oxycodone/ 1 TAB Q6P PRN 10/01 0915 AC 10/02 Acetaminophen PO 0554 Ramelteon 8 MG AT BEDTIME 09/30 2200 AC 10/01 PO 205 Tiotropium [place] 1 PUF DAILY 09/30 1400 AC 10/01 INH 0835 Last 24 Hrs of Lab/Dg Results Last 24 Hrs of Labs/Mics: Laboratory Tests 10/02/17 0755: CBC w Diff NO MAN DIFF REQ, RBC 4.62, MCV 92.7, MCH 31.3 H, RDW 13.3, MPV 8.5, Gran % 93.2 H, Lymphocytes % 4.8 L, Monocytes % 2.0, Eosinophils % 0, Basophils % 0, Absolute Granulocytes 18.2 H, Absolute Lymphocytes 0.9 L, Absolute Monocytes 0.4, Absolute Eosinophils 0, Absolute Basophils 0, PUBS MCHC 33.7 Assessment/Plan Assessment: 57-year-old woman with past medical history of COPD, recurrent bronchitis, bipolar disorder, depression here with shortness of breath, wheezing, productive cough continues to smoke actively recent discharges, last one in July with COPD exacerbation to be Admitted to general medicine floors for acute COPD exacerbation associated with hypoxemia. Acute hypoxic respiratory failure due to COPD exacerbation: -We will continue supplemental oxygen to maintain saturation above 90%. -Patient still had some wheezing, diminished breath sounds and exertional dyspnea, she also desaturated to 85% with exertion, we will continue IV steroids. -TRC nebulization as needed -We'll follow the sputum and blood cultures. -We will continue azithromycin. -Leukocytosis most likely secondary to steroids, will monitor CBC -Pulmonary consult with patient's spinning frame tender, Dr. Lopze, in a.m. per patient 's request. Chronic back pain: -We will continue IV morphine every 6 when necessary -We will continue Percocet 1 tablet every 6 when necessary -We will avoid high dose of morphine or opiates to prevent respiratory Depression. Smoking cessation: -Will consult the patient for smoking cessation -We will help her with nicotine patch. Bipolar disorder: -We will continue her home meds. DVT prophylaxis: Mechanical and Lovenox CODE STATUS: Full code Problem List: 1. COPD exacerbation 2. Acute on chronic respiratory failure with hypoxia Pain Ratin Pain Location: none Pain Goal: Remain pain free Pain Plan: pain pathway Tomorrow's Labs & Rationales: cbc Katherine Acosta MD 10/02/17 0950: Attending MD Review Statement Attending Statement Attending MD Statement: examined this patient, discuss w/resident/PA/WATER SOFTENER SERVICE SUPERVISOR, agreed w/resident/PA/WATER SOFTENER SERVICE SUPERVISOR, reviewed EMR data (avail), discussed with nursing, reviewed images Attending Assessment/Plan: Pt still feels very short of breath. She desaturates to 85% on 2 L of oxygen with minimal ambulation. She still sounds very wheezy and very decreased air entry with persistent cough. She is a 57-year-old active tobacco user, we are actively treating for a COPD exacerbation with IV steroids and by mouth Zithromax for a bacterial bronchitis. She has acute hypoxemic respiratory failure as evidenced by a very low O2. She is also on Symbicort and Spiriva. She follows with Dr. Lopez on the outside and she would prefer to wait to see him in a.m. rather than call the covering spinning frame tender. She has a history of heroin addiction, she's been clean for many years and we are treating her with IV morphine now for pain associated with cough.
[2017-10-02 09:33] LABS: ABSOLUTE BASOPHIL COUNT 0 /CUMM (0.0-0.2); ABSOLUTE EOSINOPHIL COUNT 0 /CUMM (0.0-0.7); ABSOLUTE GRANULOCYTE CT 18.2 /CUMM (1.4-6.5); ABSOLUTE LYMPH COUNT 0.9 /CUMM (1.2-3.4); ABSOLUTE MONOCYTE COUNT 0.4 /CUMM (0.10-0.60); BASOPHIL % 0 % (0.0-2.0); EOSINOPHIL % 0 % (0-5); HEMATOCRIT 42.8 % (37-47); MEAN CORPUSCULAR HGB 31.3 PG (27.0-31.0); MEAN CORPUSCULAR HGB CONC 33.7 G/DL (33.0-37.0); MEAN CORPUSCULAR VOLUME 92.7 FL (81.0-99.0); MEAN PLATELET VOLUME 8.5 FL (7.4-10.4); PLATELET COUNT 231 /CUMM (130-400); RBC DISTRIBUTION WIDTH 13.3 % (11.5-14.5); RED BLOOD CELL CT 4.62 /CUMM (4.20-5.40); WHITE BLOOD CELL COUNT 19.5 /CUMM (4.8-10.8)
[2017-10-02 10:16] LABS: GRANULOCYTE % 93.2 % (42.2-75.2)
[2017-10-02 13:58] VITALS: BP 130/90
--- NOTE | 2017-10-02 17:18 | Discharge Summary ---
Visit Information Visit Dates Admission Date: 09/30/17 Discharge Date: 10/10/17 Hospital Course Course Attending Physician: Vanna KEYS,Cesar Shields Primary Care Physician: Patient Has No Primary Care Dr Hospital Course: 57 YO F with COPD not on home O2, recurrent bronchitis, left lung upper lobectomy for suspected cancer in 2003, bipolar disorder, depression presented to the ED this morning for shortness of breath, wheezing, pleuritic chest pain and cough. ED course: Vitals: Temperature 99.7, pulse 128, respiratory 21, blood pressure 150/80, oxygen saturation 98% on 4 L of oxygen Labs: WBC count 8.1, hemoglobin 15.4, hematocrit 46.3, platelet count 205, sodium 142, potassium 4.1, BUN 14, creatinine 0.5, glucose 124, BUNs/creatinine ratio 24.0, troponin less than 0.01 Acute hypoxic respiratory failure due to COPD exacerbation: Initially patient was started on 4 L of oxygen considering her acute hypoxic respiratory failure due to COPD exacerbation to keep her oxygen saturation above 90%. Later on patient's oxygen was weaned off to 2 L. Patient was given IV Solu-Medrol and TRC nebulization.Patient had cough with sputum and also having pleurisy probably due to viral bronchitis. Sputum cultures and blood cultures were obtained initially. Sputum and blood culture remained negative. Patient was given 5 days course of IV azithromycin. Rapid influenza A and B test remained negative. Pulmonology consult was obtained and recommendations were followed. During the hospital course patient desaturated below 88 on 2 L of oxygen. Her oxygen requirement increased to 4 L. Considering patient's tachycardia and increased oxygen requirement there was high suspicion of pulmonary embolism. CTA was done that was negative for PE. Patient remained on 4 L of oxygen and during embolization patient desaturated to 80s. Acetylcysteine was started to help her liquefy the mucus that she was not able to bring up. Later on by mouth Mucinex was given. Considering patient's continuous oxygen requirement even after optimal medical treatment with steroids it was decided to send the patient home with oxygen. Patient was informed that maybe she needs home oxygen this time to keep her oxygen saturation above 90% during ambulation and she agreed with the plan. Patient was instructed to see her skin piler as outpatient for further recommendations and adjustment of the medication. Diarrhea: During the hospital stay patient complained of loose bowel movements. Stools test of cultures were sent that remained negative. Patient was tolerating food there was no abdominal pain and her diarrhea improved by itself. Chronic back pain: To control her back pain IV morphine was given and also Percocet as needed. Smoking cessation: Smoking cessation counseling was done and patient was offered nicotine patch. Bipolar disorder: We continued her home meds. DVT prophylaxis: Mechanical and Lovenox CODE STATUS: Full code Allergies: Coded Allergies: NSAIDS (Non-Steroidal Anti-Inflamma (Severe, ANAPHYLAXIS 03/23/17) ibuprofen (Severe, ANAPHYLAXIS 03/23/17) Penicillins (Intermediate, RASH 03/23/17) codeine (Intermediate, RASH 12/15/16) gabapentin (Intermediate, SWOLLEN FEET 03/23/17) ketorolac (Intermediate, RASH\HIVES 03/23/17) Pertinent Lab Results: Chest x-ray on 09/30/17: IMPRESSION: Moderate small airways changes identified with peribronchial thickening which may reflect bronchitis/asthma. The findings are slightly more prominent than prior. No focal consolidation or pleural effusion. Chest CTA on 10/03/17: IMPRESSION: No pulmonary embolism or other acute intrathoracic abnormality. Postsurgical changes status post left upper lobectomy. Moderate to severe emphysema. VTE: negative WBC count 19.0, hemoglobin 16.0, hematocrit 47.4, platelet count 236, sodium 142 , potassium 4.3, BUN 32, creatinine 0.7, BUN/creatinine ratio 45.7. Disposition Summary Disposition Principal Diagnosis: Acute hypoxic respiratory failure due to COPD exacerbation Acute bronchitis Additional Diagnosis: Chronic back pain Bipolar disorder Discharge Disposition: home or self care Discharge Instructions General Discharge Information Code Status: Full Code Patient's Diet: Regular diet Patient's Activity: Self-limited Follow-Up Instructions/Appts: Follow your primary care physician in one week Follow-up visual skin piler in 1 week Medications at Discharge Discharge Medications: Continue taking these medications: Fluoxetine HCl (Prozac) 20 MG CAPSULE 1 Capsule ORAL Every Morning Comments: Last Taken: 10/10/17 Time: 940AM Aripiprazole (Abilify) 10 MG TABLET 1 Tablet ORAL Every Morning Comments: Last Taken: 10/10/17 Time: 940AM Fluticasone/Salmeterol (Advair 250-50 Diskus) 250 MCG-50 MCG/DOSE BLST.W.DEV 1 Puff Inhale through mouth TWICE DAILY Comments: NOT GIVEN IN HOSPITAL Tiotropium [facility] (Spiriva) 18 MCG CAP.W.DEV 1 Capsule Inhale through mouth DAILY Comments: Last Taken: 10/10/17 Time: 1200 PM Albuterol Sulfate (Proair Hfa) 90 MCG HFA.AER.AD 2 Puff Inhale through mouth as needed for COPD/EMPHYSEMA Comments: Last Taken: 10/10/17 Time: 1217PM Start taking the following new medications: Prednisone (Prednisone) 20 MG TABLET 0 ORAL DAILY Days = 17 No Refills Instructions: On Take 10/11 60 MG 10/12-10/14 50 MG 10/15-10/17 40 MG 10/18-10/20 30 MG 10/21-10/23 20 MG 10/24-10/26 10 MG Then Stop Comments: Last Taken: 10/10/17 Time: 940AM Oxycodone HCl/Acetaminophen (Percocet 5-325 MG Tablet) 5 MG-325 MG TABLET 1 Tablet ORAL EVERY SIX HOURS NEEDED as needed for PAIN SCALE 1-3 (MILD) Qty = 30 No Refills Instructions: . Comments: Last Taken: 10/10/17 Time: 1200PM Copies To: Mendoza Lopez MD
[2017-10-02 22:29] VITALS: BP 140/80
[2017-10-02 22:30] VITALS: BP 148/80
[2017-10-02 22:33] VITALS: BP 148/80
--- NOTE | 2017-10-03 06:05 | Patient Discharge Instructions ---
Discharge Instructions General Discharge Information You were seen/treated for: Acute hypoxic respiratory failure due to COPD exacerbation. Watch for these problems: Shortness of breath, cough with sputum, chest pain, nausea and vomiting. Special Instructions: Follow up with pcp in one week. Follow up with your feed house supervisor in one week. Diet Continue normal diet: Yes Activity Activity Self Limited: Yes Acute Coronary Syndrome Inclusion Criteria At DC or during hospital stay patient has or had the following: ACS DIAGNOSIS No Discharge Core Measures Meds if any: Prescribed or Continued at Discharge Meds if any: NOT Prescribed or Continued at Discharge Congestive Heart Failure Inclusion Criteria At DC or during hospital stay patient has or had the following: CHF DIAGNOSIS No Discharge Core Measures Meds if any: Prescribed or Continued at Discharge Meds if any: NOT Prescribed or Continued at Discharge Cerebrovascular accident Inclusion Criteria At DC or during hospital stay patient has or had the following: CVA/TIA Diagnosis No Discharge Core Measures Meds if any: Prescribed or Continued at Discharge Meds if any: NOT Prescribed or Continued at Discharge Venous thromboembolism Inclusion Criteria VTE Diagnosis No VTE Type NONE VTE Confirmed by (Test) NONE Discharge Core Measures - Per Current guidelines, there needs to be overlap - treatment for the first 5 days of Warfarin therapy. - If discharged on Warfarin prior to 5 days of - overlap therapy, the patient will need to be - assessed for post discharge needs including - *Post discharge parental anticoagulation - *Warfarin and/or parental anticoagulation education - *Follow up date to check INR post discharge At least 5 days overlap therapy as Inpatient No Meds if any: Prescribed or Continued at Discharge Note: Overlap Therapy is Warfarin and Anticoagulant Meds if any: NOT Prescribed or Continued at Discharge
[2017-10-03 06:51] VITALS: BP 144/86
--- NOTE | 2017-10-03 07:30 | PN- Housestaff ---
[facility]: Subjective Follow-up For: Acute on chronic hypoxic respiratory failure COPD exacerbation Acute bronchitis Subjective: No overnight events. Patient remained afebrile overnight. Seen and examined this morning bedside. She was sitting in bed comfortably. Using 4 L of oxygen and maintaining saturation 93%. Patient denied any chest pain, palpitation, chills, fever, lightheadedness, nausea, vomiting, abdominal pain dysuria. Patient reported having dry cough and difficulty bringing any phlegm. Patient also reported having short of breath on exertion. Patient desaturated in 80s on 2 L of oxygen that's why she is getting 4 L now. considering her desaturation we will rule out any possibility of pulmonary embolism. Review of Systems Constitutional: Reports: no symptoms. EENTM: Reports: no symptoms. Respiratory: Reports: cough, short of breath. Gastrointestinal: Reports: no symptoms. Genitourinary: Reports: no symptoms. Musculoskeletal: Reports: no symptoms. Neurological/Psychological: Reports: no symptoms. Objective Last 24 Hrs of Vital Signs/I&O Vital Signs Date Time Temp Pulse Resp B/P B/P Pulse O2 O2 Flow FiO2 Mean Ox Delivery Rate 10/03 0833 93 Nasal 4.0L Cannula 10/03 0800 94 Nasal 4.0L Cannula 10/03 0651 97.9 90 20 144/86 94 Nasal Cannula 10/03 0000 Nasal 4.0L Cannula 10/02 2233 98.3 90 20 148/80 93 10/02 2042 93 Nasal 4.0L Cannula 10/02 2034 Nasal 4.0L Cannula 10/02 1859 91 Nasal 4.0L Cannula 10/02 1600 96 Nasal 4.0L Cannula 10/02 1358 97.6 95 20 130/90 92 Nasal 2.0L Cannula Intake & Output 10/03 1600 10/03 0800 10/03 0000 Intake Total 420 600 Output Total Balance 420 600 Intake, IV 20 Intake, Oral 400 600 Physical Exam General Appearance: Alert, Oriented X3, Cooperative, No Acute Distress Skin Temp/Moisture Exam: Warm/Dry HEENT: Atraumatic, PERRLA, EOMI Neck: Supple Cardiovascular: Normal S1, Normal S2 Lungs: wheezing b/l Abdomen: Soft, No Tenderness Neurological: Normal Speech, Strength at 5/5 X4 Ext, Normal Tone, Sensation Intact Extremities: No Edema Assessment/Plan Assessment: 57-year-old woman with past medical history of COPD, recurrent bronchitis, bipolar disorder, depression here with shortness of breath, wheezing, productive cough continues to smoke actively recent discharges, last one in July with COPD exacerbation to be Admitted to general medicine floors for acute COPD exacerbation associated with hypoxemia. Acute hypoxic respiratory failure due to COPD exacerbation: -We will continue supplemental oxygen to maintain saturation above 90%. -Patient still had some wheezing, diminished breath sounds and exertional dyspnea, she also desaturated to 85% with exertion, we will continue IV steroids. -TRC nebulization as needed -We'll follow the sputum and blood cultures. -We will continue azithromycin. -Leukocytosis most likely secondary to steroids, will monitor CBC -Pulmonary consult with patient's compensation manager, Dr. Lopez, in a.m. per patient 's request. -Considering patient's desaturation on oxygen we will rule out any possibility of pulmonary embolism by ordering CTA. CTA is negative for PE and steroids were changed to Q8 rather than Q6. Acute bronchitis: -we will continue azithromycin. -We will follow the sputum culture -we will get chest physiotherapy to help her bring up sputum. Chronic back pain: -We will continue IV morphine every 6 when necessary -We will continue Percocet 1 tablet every 6 when necessary -We will avoid high dose of morphine or opiates to prevent respiratory Depression. Smoking cessation: -Will consult the patient for smoking cessation -We will help her with nicotine patch. Bipolar disorder: -We will continue her home meds. DVT prophylaxis: Mechanical and Lovenox CODE STATUS: Full code Problem List: 1. COPD exacerbation 2. Acute respiratory failure with hypoxia 3. Bronchitis Pain Ratin Pain Location: none Pain Goal: Remain pain free Pain Plan: tylenol for mild pain Tomorrow's Labs & Rationales: cbc/bep Kimber Stanton MD 10/03/17 1416: Attending MD Review Statement Attending Statement Attending MD Statement: examined this patient, discuss w/resident/PA/PARISH NURSE, agreed w/resident/PA/PARISH NURSE, reviewed EMR data (avail) Attending Assessment/Plan: 57F PMH COPD not on home O2, recurrent bronchitis, left lung upper lobectomy for suspected cancer in 2003, bipolar disorder, depression admitted with COPD exacerbation and acute bronchitis, with negative CTA for PE. Patient is still wheezing today, coughing up yellow sputum, requiring 4L NC. 1. COPD Exacerbation 2. Acute hypoxemic respiratory failure 3. Acute bronchitis Plan - Continue on general medicine - Taper Solumedrol to 40mg q8h tomorrow - Nebulizer treatments - Sputum culture - Continue Azithromycin - Recheck BEP tomorrow, do not need to check CBC - Pulmonary consult - Continue home medications - DVT PPx
[2017-10-03 09:33] LABS: ABSOLUTE BASOPHIL COUNT 0 /CUMM (0.0-0.2); ABSOLUTE EOSINOPHIL COUNT 0 /CUMM (0.0-0.7); ABSOLUTE GRANULOCYTE CT 14.4 /CUMM (1.4-6.5); ABSOLUTE LYMPH COUNT 1.2 /CUMM (1.2-3.4); ABSOLUTE MONOCYTE COUNT 0.5 /CUMM (0.10-0.60); BASOPHIL % 0.1 % (0.0-2.0); EOSINOPHIL % 0.1 % (0-5); HEMATOCRIT 43.9 % (37-47); MEAN CORPUSCULAR HGB 31.1 PG (27.0-31.0); MEAN CORPUSCULAR HGB CONC 33.6 G/DL (33.0-37.0); MEAN CORPUSCULAR VOLUME 92.5 FL (81.0-99.0); MEAN PLATELET VOLUME 8.2 FL (7.4-10.4); PLATELET COUNT 243 /CUMM (130-400); RBC DISTRIBUTION WIDTH 13.3 % (11.5-14.5); RED BLOOD CELL CT 4.74 /CUMM (4.20-5.40)
[2017-10-03 10:35] LABS: GRANULOCYTE % 89.5 % (42.2-75.2)
--- NOTE | 2017-10-03 11:01 | Cons- Pulmonary ---
General Information and HPI Consulting Request Date of Consult: 10/03/17 Requested By: Dr. Stanton Reason for Consult: dyspnea Source of Information: patient Exam Limitations: no limitations History of Present Illness: 67-year-old woman. Active smoker, has tried chantix has been used, down to 2 cigarettes from about 1 ppd. Since last visit s/p medrol, still with dyspnea. FENO was 16. Wheezing, coughing, yellowish to green. COPD exacerbation. Tx with steroids. Not much better. CXR stable. Still smoking few cigarettes daily. S/p abx, prednisone. Tried Chantix. 7 cigarettes daily. She has a history of COPD and history of a questionable left lung surgery at [facility] in 2003 without a diagnosis of cancer. She has bipolar disorder and depression. Given lack of improvement and chest discomfort will recommend chest CTA. Allergies/Medications Allergies: Coded Allergies: NSAIDS (Non-Steroidal Anti-Inflamma (Severe, ANAPHYLAXIS 03/23/17) ibuprofen (Severe, ANAPHYLAXIS 03/23/17) Penicillins (Intermediate, RASH 03/23/17) codeine (Intermediate, RASH 12/15/16) gabapentin (Intermediate, SWOLLEN FEET 03/23/17) ketorolac (Intermediate, RASH\HIVES 03/23/17) Home Med List: Albuterol Sulfate (Proair Hfa) 90 MCG HFA.AER.AD 2 PUF INH PRN COPD/EMPHYSEMA (Reported) Aripiprazole (Abilify) 10 MG TABLET 1 TAB PO QAM MENTAL HEALTH (Reported) Fluoxetine HCl (Prozac) 20 MG CAPSULE 1 CAP PO QAM MENTAL HEALTH (Reported) Fluticasone/Salmeterol (Advair 250-50 Diskus) 250 MCG-50 MCG/DOSE BLST.W.DEV 1 PUF INH BID COPD/EMPHYSEMA (Reported) Tiotropium [place] (Spiriva) 18 MCG CAP.W.DEV 1 CAP INH DAILY COPD/EMPHYSEMA (Reported) Current Medications: Current Medications Sig/Leda Start time Last Medication Dose Route Stop Time Status Admin Acetaminophen 650 MG Q6P PRN 09/30 1400 AC PO Acetaminophen 1,000 MG Q6P PRN 09/30 1400 AC 09/30 IV 1606 Albuterol Sulfate 3 ML EVERY 4 HRS/AWAKE 10/01 0800 AC 10/03 INH 0831 Albuterol Sulfate 2 PUF Q4P PRN 09/30 1415 AC INH Aripiprazole 10 MG QAM 10/01 1000 AC 10/03 PO 0919 Azithromycin 250 MG DAILY 10/01 1000 AC 10/03 PO 10/04 1001 0919 Benzonatate 100 MG Q8H 10/02 1400 AC 10/03 PO 0706 Budesonide/ 2 PUF BID 09/30 1400 AC 10/03 Formoterol Fumarate INH 0919 Enoxaparin Sodium 40 MG DAILY 10/01 1000 AC 10/03 SC 0918 Fluoxetine HCl 20 MG QAM 10/01 1000 AC 10/03 PO 0919 Guaifenesin 600 MG Q12 09/30 1358 AC 10/03 PO 0919 Methylprednisolone 40 MG Q6 09/30 1800 AC 10/03 IV 10/03 1201 0704 Morphine Sulfate 2 MG Q6P PRN 10/01 0900 AC 10/03 IV 0428 Nicotine 14 MG DAILY 09/30 1708 AC 10/03 TOP 0919 Oxycodone/ 1 TAB Q6P PRN 10/01 0915 AC 10/03 Acetaminophen PO 0839 Ramelteon 8 MG AT BEDTIME 09/30 2200 AC 10/02 PO 2220 Sodium Chloride 1,000 ML Q8H 10/03 1045 AC IV 10/03 1844 Tiotropium [place] 1 PUF DAILY 09/30 1400 AC 10/03 INH 0919 Review of Systems Comments 18 pt ros reviewed pertinent negatives and positives in chart otherwise negative Past History Travel History Traveled to [place] past 21 day No Medical History Blood Transfusion Hx: Yes Neurological: NONE EENT: NONE Cardiovascular: NONE Respiratory: COPD, emphysema, MASS (IN R LUNG) LT UPPER LOBECTOMY Gastrointestinal: NONE Hepatic: NONE Renal: KIDNEY STONES Musculoskeletal: NONE Psychiatric: NONE Endocrine: NONE Blood Disorders: NONE Cancer(s): NONE MEMBERSHIP COORDINATOR/Reproductive: NONE Surgical History Surgical History: appendectomy, hysterectomy, partial removal of left lung appendicectomy Schwanoma(L4,5) removal in 1992 Family History Relations & Conditions If Any: MOTHER FHx: bipolar disorder FATHER FHx: prostate cancer SISTER FH: diabetes mellitus GRANDMOTHER FHx: ovarian cancer Psychosocial History Where Do You Live? Home Who Do You Live With? boyfriend and his son Services at Home: None Primary Language: German Smoking Status: Current Everyday Smoker ETOH Use: denies use Illicit Drug Use: denies illicit drug use Living Will? no Functional Ability ADLs Independent: dressing, eating, toileting, bathing. Ambulation: independent IADLs Independent: shopping, housework, finances, food prep, telephone, transportation. Exam & Diagnostic Data Last 24 Hrs of Vital Signs/I&O Vital Signs Date Time Temp Pulse Resp B/P B/P Pulse O2 O2 Flow FiO2 Mean Ox Delivery Rate 10/03 0833 93 Nasal 4.0L Cannula 10/03 0800 94 Nasal 4.0L Cannula 10/03 0651 97.9 90 20 144/86 94 Nasal Cannula 10/03 0000 Nasal 4.0L Cannula 10/02 2233 98.3 90 20 148/80 93 10/02 204 93 Nasal 4.0L Cannula 10/02 203 Nasal 4.0L Cannula 10/02 1859 91 Nasal 4.0L Cannula 10/02 1600 96 Nasal 4.0L Cannula 10/02 1358 97.6 95 20 130/90 92 Nasal 2.0L Cannula Intake & Output 10/03 1600 10/03 0800 10/03 0000 Intake Total 420 600 Output Total Balance 420 600 Intake, IV 20 Intake, Oral 400 600 Physical Exam Other Physical Findings: gen awake and alert heent ncat cvs s1, s2 lung rare bibasilar rhonchi abd soft, bs+ ext without edema Last 48 Hrs of Labs/Dg: Laboratory Tests 10/03/17 0804: CBC w Diff NO MAN DIFF REQ, RBC 4.74, MCV 92.5, MCH 31.1 H, RDW 13.3, MPV 8.2, Gran % 89.5 H, Lymphocytes % 7.3 L, Monocytes % 3.0, Eosinophils % 0.1, Basophils % 0.1, Absolute Granulocytes 14.4 H, Absolute Lymphocytes 1.2, Absolute Monocytes 0.5, Absolute Eosinophils 0, Absolute Basophils 0, PUBS MCHC 33.6 10/02/17 0755: CBC w Diff NO MAN DIFF REQ, RBC 4.62, MCV 92.7, MCH 31.3 H, RDW 13.3, MPV 8.5, Gran % 93.2 H, Lymphocytes % 4.8 L, Monocytes % 2.0, Eosinophils % 0, Basophils % 0, Absolute Granulocytes 18.2 H, Absolute Lymphocytes 0.9 L, Absolute Monocytes 0.4, Absolute Eosinophils 0, Absolute Basophils 0, PUBS MCHC 33.7 Assessment/Plan Impression/Plan: Impression 67-year-old woman. Active smoker, has tried chantix has been used, down to 2 cigarettes from about 1 ppd. Since last visit s/p medrol, still with dyspnea. FENO was 16. Wheezing, coughing, yellowish to green. COPD exacerbation. Tx with steroids. Not much better. CXR stable. Still smoking few cigarettes daily. S/p abx, prednisone. Tried Chantix. 7 cigarettes daily. She has a history of COPD and history of a questionable left lung surgery at [facility] in 2003 without a diagnosis of cancer. She has bipolar disorder and depression. Given lack of improvement and chest discomfort will recommend chest CTA. Plan -rule out PE with a CTA - pt agreeable, given 1 Liter of normal saline -check cmp in am -if no PE, reduce solumedrol to 40mg iv q8h -call with results -TRC/nebs DVT prophylaxis at all times Consult Acknowledgment - Thank you for your consult request.
--- NOTE | 2017-10-03 13:06 | CT SCAN REPORT ---
EXAMINATION: CT ANGIOGRAM OF THE CHEST WITH AND WITHOUT CONTRAST (CT PULMONARY ANGIOGRAM FOR PE) CLINICAL INFORMATION: Hypoxemia COMPARISON: Chest radiograph 09/30/2017. Chest CT 08/08/2016. TECHNIQUE: Prior to contrast administration, noncontrast localization images were obtained. Subsequently, multidetector volumetric imaging was performed from the thoracic inlet to below the diaphragms following the administration of 95 mL Optiray 350 intravenous contrast. No contrast reaction reported. Sagittal, coronal, and MIP oblique sagittal reformatted images were obtained on the CT workstation, uploaded to PACS, and reviewed. Total exam dose-length product 425 mGy-cm. FINDINGS: QUALITY OF STUDY/CONTRAST BOLUS: Satisfactory PULMONARY ARTERIES: No central or segmental pulmonary emboli. THORACIC AORTA: No aneurysm or dissection. LUNG: The central airways are patent. Status post left upper lobectomy. There is moderate to severe centrilobular and paraseptal emphysema. Minimal dependent groundglass opacity noted in the right lower lobe which favors atelectasis. No dense consolidation. No suspicious pulmonary nodules. PLEURA: No pleural effusion or pneumothorax. MEDIASTINUM: Normal heart size. No pericardial effusion. Coronary artery calcifications are present. No hilar or mediastinal lymphadenopathy. No evidence of septal bowing or right heart strain. CHEST WALL/AXILLA: No axillary or internal mammary lymphadenopathy. OSSEOUS STRUCTURES: No acute or suspicious osseous abnormality. Mild degenerative changes in the spine. UPPER ABDOMEN: Hypoattenuating lesion in the spleen again noted. This remains unchanged, measuring 1.8 cm. No reflux of contrast into the hepatic veins to suggest elevated right heart pressures. IMPRESSION: No pulmonary embolism or other acute intrathoracic abnormality. Postsurgical changes status post left upper lobectomy. Moderate to severe emphysema. VTE: negative
[2017-10-03 13:57] VITALS: BP 142/80
[2017-10-03 21:53] VITALS: BP 160/80
[2017-10-04 06:40] VITALS: BP 144/90
--- NOTE | 2017-10-04 06:56 | PN- Housestaff ---
See Addendum Subjective Follow-up For: Acute on chronic hypoxic respiratory failure COPD exacerbation Acute bronchitis Subjective: No overnight events. Patient remained afebrile for. Seen and examined this morning. She denied any chest pain, palpitation, fever, chills, abdominal pain and dysuria. Patient reported cough that's dry and still has exertional dyspnea. Patient 4 L of oxygen and maintaining saturation 97%. Review of Systems Constitutional: Reports: no symptoms. EENTM: Reports: no symptoms. Cardiovascular: Reports: no symptoms. Respiratory: Reports: cough, short of breath. Gastrointestinal: Reports: no symptoms. Genitourinary: Reports: no symptoms. Musculoskeletal: Reports: no symptoms. Neurological/Psychological: Reports: no symptoms. Objective Last 24 Hrs of Vital Signs/I&O Vital Signs Date Time Temp Pulse Resp B/P B/P Pulse O2 O2 Flow FiO2 Mean Ox Delivery Rate 10/04 0801 97 Nasal 4.0L Cannula 10/04 0800 Nasal 4.0L Cannula 10/04 0640 97.6 84 20 144/90 92 Nasal 4.0L Cannula 10/04 0000 93 Nasal 4.0L Cannula 10/03 2153 97.9 82 20 160/80 93 Nasal 4.0L Cannula 10/03 1719 92 Nasal 4.0L Cannula 10/03 1642 93 Nasal 4.0L Cannula 10/03 1357 97.9 99 18 142/80 92 Nasal 4.0L Cannula Intake & Output 10/04 1600 10/04 0800 10/04 0000 Intake Total 65 1240 Output Total Balance 65 1240 Intake, IV 15 1000 Intake, Oral 50 240 Number 0 Bowel Movements Physical Exam General Appearance: Alert, Oriented X3, Cooperative, No Acute Distress Skin Temp/Moisture Exam: Warm/Dry HEENT: Atraumatic, PERRLA, EOMI Neck: Supple Cardiovascular: Normal S1, Normal S2 Lungs: wheezing b/l Abdomen: Soft, No Tenderness Neurological: Normal Speech, Strength at 5/5 X4 Ext, Normal Tone, Sensation Intact Extremities: No Edema Assessment/Plan Assessment: 57-year-old woman with past medical history of COPD, recurrent bronchitis, bipolar disorder, depression here with shortness of breath, wheezing, productive cough continues to smoke actively recent discharges, last one in July with COPD exacerbation to be Admitted to general medicine floors for acute COPD exacerbation associated with hypoxemia. Acute hypoxic respiratory failure due to COPD exacerbation: -We will continue supplemental oxygen to maintain saturation above 90%. -Patient still had some wheezing, diminished breath sounds and exertional dyspnea, she also desaturated to 85% with exertion, we will continue IV steroids. -TRC nebulization as needed -We'll follow the sputum and blood cultures. -We will continue azithromycin. -Leukocytosis most likely secondary to steroids, will monitor CBC -Pulmonary consult with patient's stamps or coins salesperson, Dr. Lopez, in a.m. per patient 's request. -Considering patient's desaturation on oxygen we will rule out any possibility of pulmonary embolism by ordering CTA. CTA is negative for PE and steroids were changed to Q8 rather than Q6. -Patient still have difficulty breathing and also bronchospasm in the chest so we will continue IV steroid every 8 hourly. We will check her saturation on ambulation today.(10/04/17) Acute bronchitis: -we will continue azithromycin. -We will follow the sputum culture -we will get chest physiotherapy to help her bring up sputum. Chronic back pain: -We will continue IV morphine every 6 when necessary -We will continue Percocet 1 tablet every 6 when necessary -We will avoid high dose of morphine or opiates to prevent respiratory Depression. Smoking cessation: -Will consult the patient for smoking cessation -We will help her with nicotine patch. Bipolar disorder: -We will continue her home meds. DVT prophylaxis: Mechanical and Lovenox CODE STATUS: Full code Problem List: 1. Acute respiratory failure with hypoxia 2. COPD exacerbation 3. Bronchitis Pain Ratin Pain Location: none Pain Goal: Remain pain free Pain Plan: tylenol for mild pain Tomorrow's Labs & Rationales: bep
--- NOTE | 2017-10-04 12:07 | PN- Pulmonary ---
Subjective HPI/Critical Care Issues: pt seen and examined ct chest without vte feeling stable but still dyspneic Objective Current Medications: Current Medications Sig/Leda Start time Last Medication Dose Route Stop Time Status Admin Acetaminophen 650 MG Q6P PRN 09/30 1400 AC PO Acetaminophen 1,000 MG Q6P PRN 09/30 1400 AC 09/30 IV 1606 Albuterol Sulfate 3 ML EVERY 4 HRS/AWAKE 10/01 0800 AC 10/04 INH 0759 Albuterol Sulfate 2 PUF Q4P PRN 09/30 1415 AC INH Aripiprazole 10 MG QAM 10/01 1000 AC 10/04 PO 0917 Azithromycin 250 MG DAILY 10/01 1000 DC 10/04 PO 10/04 1001 0917 Benzonatate 100 MG Q8H 10/02 1400 AC 10/04 PO 0623 Budesonide/ 2 PUF BID 09/30 1400 AC 10/04 Formoterol Fumarate INH 0922 Enoxaparin Sodium 40 MG DAILY 10/01 1000 AC 10/04 SC 0919 Fluoxetine HCl 20 MG QAM 10/01 1000 AC 10/04 PO 0917 Guaifenesin 600 MG Q12 09/30 1358 AC 10/04 PO 0917 Methylprednisolone 40 MG Q8 10/03 1400 AC 10/04 IV 0624 Morphine Sulfate 2 MG Q6P PRN 10/01 0900 AC 10/04 IV 1058 Nicotine 14 MG DAILY 09/30 1708 AC 10/04 TOP 0920 Oxycodone/ 1 TAB Q6P PRN 10/01 0915 AC 10/04 Acetaminophen PO 0916 Ramelteon 8 MG AT BEDTIME 09/30 2200 AC 10/03 PO 2113 Sodium Chloride 1,000 ML Q8H 10/03 1045 DC 10/03 IV 10/03 1844 1103 Tiotropium [place] 1 PUF DAILY 09/30 1400 AC 10/04 INH 0921 Vital Signs & I&O Last 24 Hrs of Vitals and I&O: Vital Signs Date Time Temp Pulse Resp B/P B/P Pulse O2 O2 Flow FiO2 Mean Ox Delivery Rate 10/04 0801 97 Nasal 4.0L Cannula 10/04 0800 Nasal 4.0L Cannula 10/04 0640 97.6 84 20 144/90 92 Nasal 4.0L Cannula 10/04 0000 93 Nasal 4.0L Cannula 10/03 2152 97.9 82 20 160/80 93 Nasal 4.0L Cannula 10/03 1719 92 Nasal 4.0L Cannula 10/03 1642 93 Nasal 4.0L Cannula 10/03 1357 97.9 99 18 142/80 92 Nasal 4.0L Cannula Intake & Output 10/04 1600 10/04 0800 10/04 0000 Intake Total 65 1240 Output Total Balance 65 1240 Intake, IV 15 1000 Intake, Oral 50 240 Number 0 Bowel Movements Exam Other Physical Findings: gen awake and alert heent ncat cvs s1, s2 lung rare bibasilar rhonchi abd soft, bs+ ext without edema Results Last 24 Hrs of Lab Results: Laboratory Tests 10/04/17 0755: Anion Gap 11, Estimated GFR > 60, BUN/Creatinine Ratio 31.7 H, Total Bilirubin 0.6, Direct Bilirubin 0.4, AST 22, ALT 54 H, Alkaline Phosphatase 84, Total Protein 6.8, Albumin 4.2 Impression/Plan Impression/Plan Impression/Plan: Impression 67-year-old woman. * COPD exacerbation, possible URI * tobacco depenedence Plan -cont solumedrol to 40mg iv q8h -TRC/nebs -oob/ambulate, assess o2 needs DVT prophylaxis at all times
[2017-10-04 14:51] VITALS: BP 142/60
[2017-10-04 22:50] VITALS: BP 148/70
[2017-10-05 06:30] VITALS: BP 142/80
--- NOTE | 2017-10-05 07:40 | PN- Housestaff ---
[facility] Subjective Follow-up For: Acute on chronic hypoxic respiratory failure COPD exacerbation Acute bronchitis Diarrhea Subjective: No overnight events. Patient remained afebrile overnight. Patient seen and examined this morning. She denied any chest pain, nausea, vomiting, chills, fever, abdominal pain and dysuria. Patient still using 4 L of oxygen and maintaining saturation 92%. Patient reported exertional dyspnea and desaturation in 80s while walking yesterday. Patient also reported that she has dry cough but she has difficulty in bringing any phlegm. He should also reported 3 loose bowel movement overnight that were green in color. Review of Systems Constitutional: Reports: no symptoms. EENTM: Reports: no symptoms. Cardiovascular: Reports: no symptoms. Respiratory: Reports: cough, short of breath. Gastrointestinal: Reports: diarrhea. Genitourinary: Reports: no symptoms. Neurological/Psychological: Reports: no symptoms. Objective Last 24 Hrs of Vital Signs/I&O Vital Signs Date Time Temp Pulse Resp B/P B/P Pulse O2 O2 Flow FiO2 Mean Ox Delivery Rate 10/05 0800 Nasal 4.0L Cannula 10/05 0630 98.1 83 20 142/80 92 Nasal Cannula 10/05 0000 92 Nasal 4.0L Cannula 10/04 2250 97.8 91 22 148/70 91 Nasal 4.0L Cannula 10/04 1645 91 Nasal 4.0L Cannula 10/04 1600 Nasal 4.0L Cannula 10/04 1451 98.6 100 18 142/60 90 Nasal 4.0L Cannula Intake & Output 10/05 1600 10/05 0800 10/05 0000 Intake Total 420 700 Output Total Balance 420 700 Intake, IV 20 Intake, Oral 400 700 Number 3 Bowel Movements Physical Exam General Appearance: Alert, Oriented X3, Cooperative, No Acute Distress Skin Temp/Moisture Exam: Warm/Dry HEENT: Atraumatic, PERRLA, EOMI Neck: Supple Cardiovascular: Normal S1, Normal S2 Lungs: Decreased breath sounds b/l but no added sounds Abdomen: Soft, No Tenderness Neurological: Normal Speech, Strength at 5/5 X4 Ext, Normal Tone, Sensation Intact Extremities: No Edema Assessment/Plan Assessment: 57-year-old woman with past medical history of COPD, recurrent bronchitis, bipolar disorder, depression here with shortness of breath, wheezing, productive cough continues to smoke actively recent discharges, last one in July with COPD exacerbation to be Admitted to general medicine floors for acute COPD exacerbation associated with hypoxemia. Acute hypoxic respiratory failure due to COPD exacerbation: -We will continue supplemental oxygen 4 L to maintain saturation above 90%. Patient still having exertional dyspnea and desaturation on ambulation. -We will continue IV steroids every 8 hourly. -Patient had difficulty bringing sputum so we will start Mucomyst to help dissolve the thick mucus. -We will try to wean off the oxygen and check the saturation on ambulation today. Pulmonary embolism was already ruled out with negative CTA chest. -We'll follow the pulmonology recommendations. -May need home o2 this time. Acute bronchitis: -Patient completed 5 days course of azithromycin. -We will follow the sputum culture -we will get chest physiotherapy to help her bring up sputum. Diarrhea: -Patient complaining of 3 bowel movement that her lows and greenish in color overnight. -We will send stool for C. difficile. Chronic back pain: -We will continue IV morphine every 6 when necessary -We will continue Percocet 1 tablet every 6 when necessary -We will avoid high dose of morphine or opiates to prevent respiratory Depression. Smoking cessation: -Will consult the patient for smoking cessation -We will help her with nicotine patch. Bipolar disorder: -We will continue her home meds. DVT prophylaxis: Mechanical and Lovenox CODE STATUS: Full code Problem List: 1. COPD exacerbation 2. Acute respiratory failure with hypoxia 3. Bronchitis Pain Ratin Pain Location: none Pain Goal: Remain pain free Pain Plan: tylenol for mild pain Tomorrow's Labs & Rationales: Seferino Enriquez MD 10/05/17 8736: Attending MD Review Statement Attending Statement Attending MD Statement: examined this patient, discuss w/resident/PA/EXECUTOR OF ESTATE, agreed w/resident/PA/EXECUTOR OF ESTATE, reviewed EMR data (avail), amended to note Attending Assessment/Plan: The patient was seen and discussed with house staff and Pulmonary (Dr. Lopez). Agree with trial of Mucomyst for thick secretions. Continue IV steroids and oxygen support. May need home oxygen pending clinical course. Will check ambulatory pulse ox in morning.
[2017-10-05 09:22] LABS: ABSOLUTE BASOPHIL COUNT 0 /CUMM (0.0-0.2); ABSOLUTE EOSINOPHIL COUNT 0 /CUMM (0.0-0.7); ABSOLUTE GRANULOCYTE CT 11.2 /CUMM (1.4-6.5); ABSOLUTE LYMPH COUNT 1.9 /CUMM (1.2-3.4); ABSOLUTE MONOCYTE COUNT 0.5 /CUMM (0.10-0.60); BASOPHIL % 0.2 % (0.0-2.0); EOSINOPHIL % 0.1 % (0-5); HEMATOCRIT 45.6 % (37-47); MEAN CORPUSCULAR HGB CONC 33.7 G/DL (33.0-37.0); MEAN CORPUSCULAR VOLUME 91.9 FL (81.0-99.0); PLATELET COUNT 228 /CUMM (130-400); RBC DISTRIBUTION WIDTH 12.8 % (11.5-14.5); RED BLOOD CELL CT 4.96 /CUMM (4.20-5.40); WHITE BLOOD CELL COUNT 13.7 /CUMM (4.8-10.8)
--- NOTE | 2017-10-05 12:09 | PN- Pulmonary ---
Subjective HPI/Critical Care Issues: Patient seen and examined this morning. She appears to be stable however significant congestion is present on lung examination. She remains dyspneic. Objective Current Medications: Current Medications Sig/Leda Start time Last Medication Dose Route Stop Time Status Admin Acetaminophen 650 MG Q6P PRN 09/30 1400 AC PO Acetaminophen 1,000 MG Q6P PRN 09/30 1400 AC 09/30 IV 1606 Acetylcysteine 2 ML BID 10/05 1117 AC 10/05 INH 1139 Albuterol Sulfate 3 ML EVERY 4 HRS/AWAKE 10/01 0800 AC 10/05 INH 1139 Albuterol Sulfate 2 PUF Q4P PRN 09/30 1415 AC INH Aripiprazole 10 MG QAM 10/01 1000 AC 10/05 PO 0941 Benzonatate 100 MG Q8H 10/02 1400 AC 10/05 PO 0619 Budesonide/ 2 PUF BID 09/30 1400 AC 10/05 Formoterol Fumarate INH 0952 Enoxaparin Sodium 40 MG DAILY 10/01 1000 AC 10/05 SC 0948 Fluoxetine HCl 20 MG QAM 10/01 1000 AC 10/05 PO 0941 Guaifenesin 600 MG Q12 09/30 1358 AC 10/05 PO 0941 Methylprednisolone 40 MG Q8 10/03 1400 AC 10/05 IV 0619 Morphine Sulfate 2 MG Q6P PRN 10/01 0900 AC 10/05 IV 1206 Nicotine 14 MG DAILY 09/30 1708 AC 10/05 TOP 0950 Oxycodone/ 1 TAB Q6P PRN 10/01 0915 AC 10/05 Acetaminophen PO 0948 Patient Medication 1 ED ONE ONE 10/04 1230 DC 10/04 Teaching ED 10/04 1231 1352 Ramelteon 8 MG AT BEDTIME 09/30 2200 AC 10/04 PO 2128 Tiotropium [place] 1 PUF DAILY 09/30 1400 AC 10/05 INH 0951 Vital Signs & I&O Last 24 Hrs of Vitals and I&O: Vital Signs Date Time Temp Pulse Resp B/P B/P Pulse O2 O2 Flow FiO2 Mean Ox Delivery Rate 10/05 0800 Nasal 4.0L Cannula 10/05 0630 98.1 83 20 142/80 92 Nasal Cannula 10/05 0000 92 Nasal 4.0L Cannula 10/04 2250 97.8 91 22 148/70 91 Nasal 4.0L Cannula 10/04 1645 91 Nasal 4.0L Cannula 10/04 1600 Nasal 4.0L Cannula 10/04 1451 98.6 100 18 142/60 90 Nasal 4.0L Cannula Intake & Output 10/05 1600 10/05 0800 10/05 0000 Intake Total 420 700 Output Total Balance 420 700 Intake, IV 20 Intake, Oral 400 700 Number 3 Bowel Movements Exam Other Physical Findings: gen awake and alert heent ncat cvs s1, s2 lung rare bibasilar rhonchi abd soft, bs+ ext without edema Results Last 24 Hrs of Lab Results: Laboratory Tests 10/05/17730: CBC w Diff NO MAN DIFF REQ, RBC 4.96, MCV 91.9, MCH 31.0, RDW 12.8, MPV 8.0, Gran % 82.0 H, Lymphocytes % 13.7 L, Monocytes % 4.0, Eosinophils % 0.1, Basophils % 0.2, Absolute Granulocytes 11.2 H, Absolute Lymphocytes 1.9, Absolute Monocytes 0.5, Absolute Eosinophils 0, Absolute Basophils 0, PUBS MCHC 33.7 Impression/Plan Impression/Plan Impression/Plan: Impression 67-year-old woman. * COPD exacerbation, possible URI * tobacco depenedence Plan -add mucomyst nebulized bid for 72 hrs -cont solumedrol to 40mg iv q8h -TRC/nebs -oob/ambulate, assess o2 needs DVT prophylaxis at all times
[2017-10-05 15:41] VITALS: BP 140/80
[2017-10-05 22:04] VITALS: BP 138/82
[2017-10-06 06:26] VITALS: BP 124/60
--- NOTE | 2017-10-06 07:02 | PN- Housestaff ---
[facility]702: Subjective Follow-up For: Acute on chronic hypoxic respiratory failure due to COPD exacerbation Acute bronchitis Diarrhea Subjective: No overnight events. Patient remained afebrile overnight. Patient seen and examined this morning. She denied any chest pain, nausea, vomiting, chills, fever, abdominal pain, lightheadedness, palpitation and dysuria. Patient is using 4 L of oxygen and maintaining saturation 90%. Patient reported intermittent cough but she is not able to bring any phlegm. Patient still have exertional dyspnea and she desaturated to 80s during exertion(walking to the restroom on oxygen). Patient reported that she had difficulty in breathing last night and she woke up, her saturation was 74% when she checked her saturation. Patient also reported that she has borderline for obstructive sleep apnea diagnosis. Review of Systems Constitutional: Reports: no symptoms. EENTM: Reports: no symptoms. Cardiovascular: Reports: no symptoms. Respiratory: Reports: cough, short of breath. Gastrointestinal: Reports: no symptoms. Genitourinary: Reports: no symptoms. Musculoskeletal: Reports: no symptoms. Neurological/Psychological: Reports: no symptoms. Objective Last 24 Hrs of Vital Signs/I&O Vital Signs Date Time Temp Pulse Resp B/P B/P Pulse O2 O2 Flow FiO2 Mean Ox Delivery Rate 10/06 08 92 Nasal 4.0L Cannula 10/06 06 97.5 88 20 124/60 90 Nasal 4.0L Cannula 10/06 0000 Nasal 4.0L Cannula 10/05 2204 97.9 98 20 138/82 96 Nasal 4.0L Cannula 10/05 1541 97.7 84 20 140/80 92 Intake & Output 10/06 1600 10/06 0800 10/06 0000 Intake Total 300 200 Output Total Balance 300 200 Intake, Oral 300 200 Physical Exam General Appearance: Alert, Oriented X3, Cooperative Skin Temp/Moisture Exam: Warm/Dry Sepsis Skin Exam (color): Normal for Ethnicity HEENT: Atraumatic, PERRLA, EOMI Neck: Supple Cardiovascular: Normal S1, Normal S2 Lungs: Course crackles on right side but no wheezing. Abdomen: Soft, No Tenderness Neurological: Normal Speech, Strength at 5/5 X4 Ext, Normal Tone, Sensation Intact Extremities: No Edema Assessment/Plan Assessment: 57-year-old woman with past medical history of COPD, recurrent bronchitis, bipolar disorder, depression here with shortness of breath, wheezing, productive cough continues to smoke actively recent discharges, last one in July with COPD exacerbation to be Admitted to general medicine floors for acute COPD exacerbation associated with hypoxemia. Acute hypoxic respiratory failure due to COPD exacerbation: -We will continue supplemental oxygen 4 L to maintain saturation above 90%. Patient still having exertional dyspnea and desaturation on ambulation. -We will continue IV steroids every 8 hourly. we will change it to Q12 hourly. -Pulmonary embolism was already ruled out with negative CTA chest. -Patient still complaining of exertional dyspnea and last day she desaturated to 80s while talking with 4 L of oxygen. -We will continue Mucomyst nebulization twice a day that will help her to dissolve the thick mucus and possibly her saturation will get better. -Possibly patient needs home oxygen this time. -We will follow the digital press operator's recommendations. Acute bronchitis: -Patient completed 5 days course of azithromycin. -We will follow the sputum culture -we will get chest physiotherapy to help her bring up sputum. Diarrhea: -Patient complaining of 3 bowel movement that her lows and greenish in color overnight. -Stool C. difficile results are still pending. Chronic back pain: -We will continue IV morphine every 6 when necessary -We will continue Percocet 1 tablet every 6 when necessary -We will avoid high dose of morphine or opiates to prevent respiratory Depression. Smoking cessation: -Will consult the patient for smoking cessation -We will help her with nicotine patch. Bipolar disorder: -We will continue her home meds. DVT prophylaxis: Mechanical and Lovenox CODE STATUS: Full code Problem List: 1. Acute respiratory failure with hypoxia 2. COPD exacerbation 3. 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 Patient is still wheezing today, coughing up yellow sputum, requiring 4L NC. 1. COPD Exacerbation 2. Acute hypoxemic respiratory failure 3. Acute bronchitis Plan - Continue on general medicine - Taper Solumedrol to 40mg q12h - Nebulizer treatments - Sputum culture - Continue Azithromycin - Recheck BEP tomorrow, do not need to check CBC - Pulmonary consult - Continue home medications - DVT PPx
--- NOTE | 2017-10-06 10:21 | PN- Pulmonary ---
Subjective HPI/Critical Care Issues: Patient seen and examined's morning. Mucomyst has not been helpful as of yet however lung examination is significantly improved. Objective Current Medications: Current Medications Sig/Leda Start time Last Medication Dose Route Stop Time Status Admin Acetaminophen 650 MG Q6P PRN 09/30 1400 AC PO Acetaminophen 1,000 MG Q6P PRN 09/30 1400 AC 09/30 IV 1606 Acetylcysteine 2 ML BID 10/05 1117 AC 10/06 INH 0818 Albuterol Sulfate 3 ML EVERY 4 HRS/AWAKE 10/01 0800 AC 10/06 INH 0818 Albuterol Sulfate 2 PUF Q4P PRN 09/30 1415 AC INH Aripiprazole 10 MG QAM 10/01 1000 AC 10/06 PO 1002 Benzonatate 100 MG Q8H 10/02 1400 AC 10/06 PO 0500 Budesonide/ 2 PUF BID 09/30 1400 AC 10/06 Formoterol Fumarate INH 1009 Enoxaparin Sodium 40 MG DAILY 10/01 1000 AC 10/06 SC 1003 Fluoxetine HCl 20 MG QAM 10/01 1000 AC 10/06 PO 1003 Guaifenesin 600 MG Q12 09/30 1358 AC 10/06 PO 1003 Methylprednisolone 40 MG Q8 10/03 1400 AC 10/06 IV 0500 Morphine Sulfate 2 MG Q6P PRN 10/01 0900 AC 10/06 IV 0652 Nicotine 14 MG DAILY 09/30 1708 AC 10/06 TOP 1004 Oxycodone/ 1 TAB Q6P PRN 10/01 0915 AC 10/06 Acetaminophen PO 0454 Ramelteon 8 MG AT BEDTIME 09/30 2200 AC 10/05 PO 2153 Tiotropium [place] 1 PUF DAILY 09/30 1400 AC 10/06 INH 1009 Vital Signs & I&O Last 24 Hrs of Vitals and I&O: Vital Signs Date Time Temp Pulse Resp B/P B/P Pulse O2 O2 Flow FiO2 Mean Ox Delivery Rate 10/06 825 92 Nasal 4.0L Cannula 10/06 08 Nasal 4.0L Cannula 10/06 625 97.5 88 20 124/60 90 Nasal 4.0L Cannula 10/06 0000 Nasal 4.0L Cannula 10/05 2204 97.9 98 20 138/82 96 Nasal 4.0L Cannula 10/05 1541 97.7 84 20 140/80 92 Intake & Output 10/06 1600 10/06 0800 10/06 0000 Intake Total 300 200 Output Total Balance 300 200 Intake, Oral 300 200 Exam Other Physical Findings: gen awake and alert heent ncat cvs s1, s2 lung rare bibasilar rhonchi improved abd soft, bs+ ext without edema Results Last 24 Hrs of Lab Results: Laboratory Tests 10/06/17 0826: Anion Gap 12, Estimated GFR > 60, BUN/Creatinine Ratio 50.0 H Impression/Plan Impression/Plan Impression/Plan: Impression 67-year-old woman. * COPD exacerbation, possible URI * tobacco depenedence Plan -mucomyst nebulized bid for another 2 days -reduce solumedrol to 40mg iv q12h -TRC/nebs -oob/ambulate, assess o2 needs DVT prophylaxis at all times
[2017-10-06 15:11] VITALS: BP 130/80
[2017-10-06 22:21] VITALS: BP 120/80
[2017-10-07 06:30] VITALS: BP 110/80
--- NOTE | 2017-10-07 06:57 | PN- Housestaff ---
Jm Pedraza 10/07/17 0657: Subjective Follow-up For: Acute on chronic hypoxic respiratory failure due to COPD exacerbation Acute bronchitis Diarrhea Complaints: no complaints Subjective: Patient was seen and examined today. Patient alert, white, oriented 3. Patient stated that her breathing slightly improve comparing with yesterday, he states since the last treatment she get last night she did not complained of any wheezing, but she still reports some shortness of breath and feeling congested. She is currently on 4 L nasal cannula oxygen with oxygen saturation more than 92 %, afebrile, blood pressure within acceptable limit. Review of Systems Constitutional: Denies: chills, fever. Cardiovascular: Denies: chest pain, palpitations. Respiratory: Reports: cough, short of breath. Denies: wheezing. Gastrointestinal: Denies: abdominal pain, distention, nausea, vomiting. Genitourinary: Denies: pain. Objective Last 24 Hrs of Vital Signs/I&O Vital Signs Date Time Temp Pulse Resp B/P B/P Pulse O2 O2 Flow FiO2 Mean Ox Delivery Rate 10/07 0630 97.9 97 20 110/80 92 Nasal Cannula 10/07 0000 92 Nasal 4.0L Cannula 10/06 2221 97.9 90 20 120/80 92 10/06 1605 91 Nasal 4.0L Cannula 10/06 1511 97.5 105 20 130/80 90 10/06 0826 92 Nasal 4.0L Cannula 10/06 0800 Nasal 4.0L Cannula Intake & Output 10/07 0800 10/07 0000 10/06 1600 Intake Total 793 960 7060 Output Total Balance 017 738 8235 Intake, IV 20 Intake, Oral 930 843 2361 Physical Exam General Appearance: Alert, Oriented X3, Cooperative, No Acute Distress HEENT: Atraumatic, PERRLA, EOMI Neck: Supple Cardiovascular: Normal S1, Normal S2 Lungs: Normal Air Movement Abdomen: Normal Bowel Sounds, Soft, No Tenderness Extremities: No Edema Current Medications: Current Medications Sig/Leda Start time Last Medication Dose Route Stop Time Status Admin Acetaminophen 650 MG Q6P PRN 09/30 1400 AC PO Acetaminophen 1,000 MG Q6P PRN 09/30 1400 AC 09/30 IV 1606 Acetylcysteine 2 ML BID 10/05 1117 AC 10/06 INH 160 Albuterol Sulfate 3 ML EVERY 4 HRS/AWAKE 10/01 08 AC 10/06 INH 2010 Albuterol Sulfate 2 PUF Q4P PRN 09/30 1415 AC INH Aripiprazole 10 MG QAM 10/01 1000 AC 10/06 PO 1002 Benzonatate 100 MG Q8H 10/02 1400 AC 10/07 PO 0452 Budesonide/ 2 PUF BID 09/30 1400 AC 10/06 Formoterol Fumarate INH 2157 Enoxaparin Sodium 40 MG DAILY 10/01 1000 AC 10/06 SC 1003 Fluoxetine HCl 20 MG QAM 10/01 1000 AC 10/06 PO 1003 Guaifenesin 600 MG Q12 09/30 1358 AC 10/06 PO 2156 Methylprednisolone 40 MG Q12 10/06 2200 AC 10/06 IV 2157 Methylprednisolone 40 MG Q8 10/03 1400 DC 10/06 IV 0500 Morphine Sulfate 2 MG Q6P PRN 10/01 0900 AC 10/07 IV 0735 Nicotine 14 MG DAILY 09/30 1708 AC 10/06 TOP 1004 Oxycodone/ 1 TAB Q6P PRN 10/01 0915 AC 10/07 Acetaminophen PO 0447 Ramelteon 8 MG AT BEDTIME 09/30 2200 AC 10/06 PO 2156 Tiotropium [place] 1 PUF DAILY 09/30 1400 AC 10/06 INH 1009 Last 24 Hrs of Lab/Dg Results Last 24 Hrs of Labs/Mics: Laboratory Tests 10/07/17 0731: Sodium Pending, Potassium Pending, Chloride Pending, Carbon Dioxide Pending, Anion Gap Pending, BUN Pending, Creatinine Pending, BUN/Creatinine Ratio Pending 10/06/17 1115: Urine Color YEL, Urine Clarity CLEAR, Urine pH 7.0, Ur Specific [place] 1.020, Urine Protein TRACE H, Urine Ketones NEG, Urine Nitrite NEG, Urine Bilirubin NEG, Urine Urobilinogen 0.2, Ur Leukocyte Esterase NEG, Ur Microscopic SEDIMENT EXAMINED, Urine RBC 3-5, Ur Epithelial Cells FEW, Urine Bacteria FEW H, Urine Hemoglobin SMALL H, Urine Glucose 250 H 10/06/17 0826: Anion Gap 12, Estimated GFR > 60, BUN/Creatinine Ratio 50.0 H Microbiology 10/06 1115 URINE ROUT: Urine Culture - RECD Assessment/Plan Assessment: 57-year-old woman with past medical history of COPD, recurrent bronchitis, bipolar disorder, depression here with shortness of breath, wheezing, productive cough continues to smoke actively recent discharges, last one in July with COPD exacerbation to be Admitted to general medicine floors for acute COPD exacerbation associated with hypoxemia. Acute hypoxic respiratory failure due to COPD exacerbation: -We will continue supplemental oxygen 4 L to maintain saturation above 90%. Patient still having exertional dyspnea and desaturation on ambulation. -We'll continue IV Solu-Medrol 40 mg every 12 with taper tomorrow morning -We will continue Mucomyst nebulization twice a day that will help her to dissolve the thick mucus and possibly her saturation will get better. -Possibly patient needs home oxygen this time. -We will follow the financial aid officer's recommendations. Acute bronchitis: -Patient completed 5 days course of azithromycin. -we will get chest physiotherapy to help her bring up sputum. Diarrhea: -Patient complaining of 3 bowel movement that her lows and greenish in color overnight. -Stool C. difficile results are still pending. Chronic back pain: -We will continue IV morphine every 6 when necessary -We will continue Percocet 1 tablet every 6 when necessary -We will avoid high dose of morphine or opiates to prevent respiratory Depression. Smoking cessation: -Will consult the patient for smoking cessation -We will help her with nicotine patch. Bipolar disorder: -We will continue her home meds. DVT prophylaxis: Mechanical and Lovenox CODE STATUS: Full code Problem List: 1. COPD exacerbation 2. Acute on chronic respiratory failure with hypoxia Pain Ratin Pain Location: back Pain Goal: Pain 4 or less Pain Plan: same Tomorrow's Labs & Rationales: none Seferino Sepulveda MD 10/07/171951: Attending MD Review Statement Attending Statement Attending MD Statement: examined this patient, discuss w/resident/PA/PEOPLESOFT FINANCIALS CONSULTANT, agreed w/resident/PA/PEOPLESO[employer] FIN[employer]CIALS CONSULTANT, discussed with family, reviewed EMR data (avail), amended to note Attending Assessment/Plan: The patient was seen and discussed with house staff. Slow improvement in breathing. Pulmonary input from Dr. Lopez appreciated. Will continue current care as outlined. Will continue Mucomyst and IV Medrol..
--- NOTE | 2017-10-07 13:16 | PN- Pulmonary ---
Subjective HPI/Critical Care Issues: Patient seen and examined this morning. She is turning the corner and feeling better overall her mucus is somewhat improved. Objective Current Medications: Current Medications Sig/Leda Start time Last Medication Dose Route Stop Time Status Admin Acetaminophen 650 MG Q6P PRN 09/30 1400 AC PO Acetaminophen 1,000 MG Q6P PRN 09/30 1400 AC 09/30 IV 1606 Acetylcysteine 2 ML BID 10/05 1117 AC 10/07 INH 10/08 1200 0903 Albuterol Sulfate 3 ML EVERY 4 HRS/AWAKE 10/01 0800 AC 10/07 INH 1212 Albuterol Sulfate 2 PUF Q4P PRN 09/30 1415 AC INH Aripiprazole 10 MG QAM 10/01 1000 AC 10/07 PO 0918 Benzonatate 100 MG Q8H 10/02 1400 AC 10/07 PO 0452 Budesonide/ 2 PUF BID 09/30 1400 AC 10/07 Formoterol Fumarate INH 0918 Enoxaparin Sodium 40 MG DAILY 10/01 1000 AC 10/07 SC 0918 Fluoxetine HCl 20 MG QAM 10/01 1000 AC 10/07 PO 0918 Guaifenesin 600 MG Q12 09/30 1358 AC 10/07 PO 0918 Methylprednisolone 40 MG Q12 10/06 2200 AC 10/07 IV 0918 Morphine Sulfate 2 MG Q6P PRN 10/01 0900 AC 10/07 IV 0735 Nicotine 14 MG DAILY 09/30 1708 AC 10/07 TOP 0918 Oxycodone/ 1 TAB Q6P PRN 10/01 0915 AC 10/07 Acetaminophen PO 1100 Ramelteon 8 MG AT BEDTIME 09/30 2200 AC 10/06 PO 2156 Tiotropium [place] 1 PUF DAILY 09/30 1400 AC 10/07 INH 0918 Vital Signs & I&O Last 24 Hrs of Vitals and I&O: Vital Signs Date Time Temp Pulse Resp B/P B/P Pulse O2 O2 Flow FiO2 Mean Ox Delivery Rate 10/07 928 93 Nasal 4.0L Cannula 10/07 08 92 Nasal 4.0L Cannula 10/07 629 97.9 97 20 110/80 92 Nasal Cannula 10/07 0000 92 Nasal 4.0L Cannula 10/06 2221 97.9 90 20 120/80 92 10/06 1605 91 Nasal 4.0L Cannula 10/06 1511 97.5 105 20 130/80 90 Intake & Output 10/07 1600 10/07 0800 10/07 0000 Intake Total 360 380 Output Total Balance 360 380 Intake, IV 20 Intake, Oral 360 360 Exam Other Physical Findings: gen awake and alert heent ncat cvs s1, s2 lung rare bibasilar rhonchi improved abd soft, bs+ ext without edema Results Last 24 Hrs of Lab Results: Laboratory Tests 10/07/17 0731: Anion Gap 13, Estimated GFR > 60, BUN/Creatinine Ratio 44.3 H Impression/Plan Impression/Plan Impression/Plan: Impression 67-year-old woman. * COPD exacerbation, possible URI * tobacco depenedence Plan -mucomyst nebulized bid for another day at [facility] -keep solumedrol to 40mg iv q12h -TRC/nebs -oob/ambulate, assess o2 needs DVT prophylaxis at all times
[2017-10-07 14:04] VITALS: BP 142/90
[2017-10-07 22:15] VITALS: BP 124/70
[2017-10-08 06:30] VITALS: BP 120/76
--- NOTE | 2017-10-08 07:08 | PN- Housestaff ---
JavierCooper 10/08/17 0707: Subjective Follow-up For: Acute on chronic hypoxic respiratory failure due to COPD exacerbation Acute bronchitis Diarrhea Subjective: No overnight events. Patient remained afebrile overnight. Seen and examined this morning. She denied any chest Pain, nausea, palpitation, vomiting, chills, fever, abdominal pain, diarrhea and dysuria. Patient still have intermittent cough and she is not able to bring any phlegm. Patient's diarrhea has resolved. Patient still have exertional dyspnea and she desaturated to 87 he was on 4 L of oxygen while walking. She desaturated to 84 without oxygen while ambulation. Review of Systems Constitutional: Reports: no symptoms. EENTM: Reports: no symptoms. Cardiovascular: Reports: no symptoms. Respiratory: Reports: cough, short of breath. Gastrointestinal: Reports: no symptoms. Genitourinary: Reports: no symptoms. Musculoskeletal: Reports: no symptoms. Neurological/Psychological: Reports: no symptoms. Objective Last 24 Hrs of Vital Signs/I&O Vital Signs Date Time Temp Pulse Resp B/P B/P Pulse O2 O2 Flow FiO2 Mean Ox Delivery Rate 10/08 0800 93 Nasal 4.0L Cannula 10/08 0630 97.9 90 20 120/76 90 Nasal 4.0L Cannula 10/08 0000 92 Nasal 4.0L Cannula 10/07 2215 97.7 100 20 124/70 92 10/07 1640 90 Nasal 4.0L Cannula 10/07 1542 93 Nasal 4.0L Cannula 10/07 1404 98.2 99 18 142/90 90 Nasal 4.0L Cannula 10/07 0929 93 Nasal 4.0L Cannula Intake & Output 10/08 1600 10/08 0800 10/08 0000 Intake Total 240 240 Output Total Balance 240 240 Intake, Oral 240 240 Physical Exam General Appearance: Alert, Oriented X3, Cooperative Skin Temp/Moisture Exam: Warm/Dry HEENT: Atraumatic, PERRLA, EOMI Neck: Supple Cardiovascular: Normal S1, Normal S2 Lungs: B/L decreased breath sounds Abdomen: Soft, No Tenderness Neurological: Normal Speech, Strength at 5/5 X4 Ext, Normal Tone, Sensation Intact Extremities: No Edema Assessment/Plan Assessment: 57-year-old woman with past medical history of COPD, recurrent bronchitis, bipolar disorder, depression here with shortness of breath, wheezing, productive cough continues to smoke actively recent discharges, last one in July with COPD exacerbation to be Admitted to general medicine floors for acute COPD exacerbation associated with hypoxemia. Acute hypoxic respiratory failure due to COPD exacerbation: -We will continue supplemental oxygen 4 L to maintain saturation above 90%. Patient still having exertional dyspnea and desaturation on ambulation. -We'll continue IV Solu-Medrol 40 mg every 12 hourly. -We will continue Mucomyst nebulization twice a day that will help her to dissolve the thick mucus and possibly her saturation will get better. -Possibly patient needs home oxygen this time. -We will follow the service desk technician's recommendations. Acute bronchitis: -Patient completed 5 days course of azithromycin. -we will get chest physiotherapy to help her bring up sputum. Diarrhea: -Patient complaining of 3 bowel movement that her lows and greenish in color overnight. -Stool C. difficile results are still pending. -Patient's diarrhea has resolved.. Chronic back pain: -We will continue IV morphine every 6 when necessary -We will continue Percocet 1 tablet every 6 when necessary -We will avoid high dose of morphine or opiates to prevent respiratory Depression. Smoking cessation: -Will consult the patient for smoking cessation -We will help her with nicotine patch. Bipolar disorder: -We will continue her home meds. DVT prophylaxis: Mechanical and Lovenox CODE STATUS: Full code Problem List: 1. Acute respiratory failure with hypoxia 2. COPD exacerbation 3. Bronchitis Pain Ratin Pain Location: none Pain Goal: Remain pain free Pain Plan: tylenol for mild pain morphine for severe pain Tomorrow's Labs & Rationales: bep/cbc Seferino Sepulveda MD 10/08/171921: Attending MD Review Statement Attending Statement Attending MD Statement: examined this patient, discuss w/resident/PA/TOP LIFT SCOURER, agreed w/resident/PA/TOP LIFT SCOURER, discussed with family, reviewed EMR data (avail), discussed with nursing, amended to note Attending Assessment/Plan: The patient was seen and discussed with house staff. Appreciate pulmonary follow -up. Slow improvement noted. Continue Mucomyst and Solumedrol as per Pulmonary. May need home oxygen.
[2017-10-08 09:33] LABS: ABSOLUTE BASOPHIL COUNT 0 /CUMM (0.0-0.2); ABSOLUTE EOSINOPHIL COUNT 0 /CUMM (0.0-0.7); ABSOLUTE MONOCYTE COUNT 0.5 /CUMM (0.10-0.60); BASOPHIL % 0.1 % (0.0-2.0); EOSINOPHIL % 0 % (0-5); GRANULOCYTE % 86.5 % (42.2-75.2); HEMATOCRIT 49.3 % (37-47); MEAN CORPUSCULAR HGB 31.1 PG (27.0-31.0); MEAN CORPUSCULAR HGB CONC 33.8 G/DL (33.0-37.0); MEAN CORPUSCULAR VOLUME 92.2 FL (81.0-99.0); MEAN PLATELET VOLUME 7.9 FL (7.4-10.4); PLATELET COUNT 277 /CUMM (130-400); RBC DISTRIBUTION WIDTH 13.3 % (11.5-14.5); RED BLOOD CELL CT 5.35 /CUMM (4.20-5.40)
[2017-10-08 11:02] LABS: WHITE BLOOD CELL COUNT 18.5 /CUMM (4.8-10.8)
--- NOTE | 2017-10-08 11:57 | PN- Pulmonary ---
Subjective HPI/Critical Care Issues: Patient seen and examined this morning. She appears to be doing better and we are anticipating discharge within next 24-48 hours. Objective Current Medications: Current Medications Sig/Leda Start time Last Medication Dose Route Stop Time Status Admin Acetaminophen 650 MG Q6P PRN 09/30 1400 AC 10/08 PO 1149 Acetaminophen 1,000 MG Q6P PRN 09/30 1400 AC 09/30 IV 1606 Acetylcysteine 2 ML BID 10/05 1117 AC 10/08 INH 10/08 2200 0826 Albuterol Sulfate 3 ML EVERY 4 HRS/AWAKE 10/01 0800 AC 10/08 INH 0826 Albuterol Sulfate 2 PUF Q4P PRN 09/30 1415 AC INH Aripiprazole 10 MG QAM 10/01 1000 AC 10/08 PO 0858 Benzonatate 100 MG Q8H 10/02 1400 AC 10/08 PO 0529 Bisacodyl 5 MG DAILY 10/08 1000 AC 10/08 PO 1045 Budesonide/ 2 PUF BID 09/30 1400 AC 10/08 Formoterol Fumarate INH 0859 Enoxaparin Sodium 40 MG DAILY 10/01 1000 AC 10/08 SC 0858 Fluoxetine HCl 20 MG QAM 10/01 1000 AC 10/08 PO 0859 Guaifenesin 600 MG Q12 09/30 1358 AC 10/08 PO 0859 Methylprednisolone 40 MG Q12 10/06 2200 AC 10/08 IV 0859 Morphine Sulfate 2 MG Q6P PRN 10/01 0900 AC 10/08 IV 0900 Nicotine 14 MG DAILY 09/30 1708 AC 10/08 TOP 0859 Oxycodone/ 1 TAB Q6P PRN 10/01 0915 AC 10/08 Acetaminophen PO 0534 Polyethylene Glycol 17 GM DAILY 10/08 1000 AC 10/08 PO 1045 Ramelteon 8 MG AT BEDTIME 09/30 2200 AC 10/07 PO 2314 Tiotropium [place] 1 PUF DAILY 09/30 1400 AC 10/08 INH 0859 Vital Signs & I&O Last 24 Hrs of Vitals and I&O: Vital Signs Date Time Temp Pulse Resp B/P B/P Pulse O2 O2 Flow FiO2 Mean Ox Delivery Rate 10/08 0944 93 Nasal 4.0L Cannula 10/08 08 93 Nasal 4.0L Cannula 10/08 0530 97.9 90 20 120/76 90 Nasal 4.0L Cannula 10/08 0000 92 Nasal 4.0L Cannula 10/07 2215 97.7 100 20 124/70 92 10/07 1640 90 Nasal 4.0L Cannula 10/07 1542 93 Nasal 4.0L Cannula 10/07 1404 98.2 99 18 142/90 90 Nasal 4.0L Cannula Intake & Output 10/08 1600 10/08 0800 10/08 0000 Intake Total 240 240 Output Total Balance 240 240 Intake, Oral 240 240 Exam Other Physical Findings: gen awake and alert heent ncat cvs s1, s2 lung rare bibasilar rhonchi improved abd soft, bs+ ext without edema Results Last 24 Hrs of Lab Results: Laboratory Tests 10/08/17 0835: Anion Gap 14, Estimated GFR > 60, BUN/Creatinine Ratio 53.3 H, CBC w Diff NO MAN DIFF REQ, RBC 5.35, MCV 92.2, MCH 31.1 H, RDW 13.3, MPV 7.9, Gran % 86.5 H , Lymphocytes % 10.7 L, Monocytes % 2.7, Eosinophils % 0, Basophils % 0.1, Absolute Granulocytes 16.0 H, Absolute Lymphocytes 2.0, Absolute Monocytes 0.5, Absolute Eosinophils 0, Absolute Basophils 0, PUBS MCHC 33.8 Impression/Plan Impression/Plan Impression/Plan: Impression 67-year-old woman. * COPD exacerbation, possible URI * tobacco depenedence Plan -mucomyst nebulized bid one last day -keep solumedrol to 40mg iv q12h today, then po prednisone tomorrow (60mg) -TRC/nebs -oob/ambulate, assess o2 needs DVT prophylaxis at all times
[2017-10-08 14:21] VITALS: BP 140/80
[2017-10-08 22:14] VITALS: BP 130/80
[2017-10-09 06:11] VITALS: BP 152/90
--- NOTE | 2017-10-09 07:31 | PN- Housestaff ---
JavierTucumcari 10/09/17 0731: Subjective Follow-up For: Acute on chronic hypoxic respiratory failure due to COPD exacerbation Acute bronchitis(improving) Diarrhea(resolved) Subjective: No overnight events. Patient remained afebrile overnight. Seen and examined this morning. She denied any chest pain, palpitation, nausea, vomiting, chills, fever, abdominal pain and dysuria. Patient reported that she desaturated to 78 without oxygen while ambulation. She also reported that with oxygen she desaturated to 80s. Patient still not able to bring any phlegm. Review of Systems Constitutional: Reports: no symptoms. EENTM: Reports: no symptoms. Cardiovascular: Reports: no symptoms. Respiratory: Reports: cough, short of breath. Gastrointestinal: Reports: no symptoms. Genitourinary: Reports: no symptoms. Musculoskeletal: Reports: see HPI. Neurological/Psychological: Reports: no symptoms. Objective Last 24 Hrs of Vital Signs/I&O Vital Signs Date Time Temp Pulse Resp B/P B/P Pulse O2 O2 Flow FiO2 Mean Ox Delivery Rate 10/09 0805 94 Nasal 4.0L Cannula 10/09 0730 Nasal 4.0L Cannula 10/09 0611 97.9 103 20 152/90 93 Nasal Cannula 10/09 0000 105 10/09 0000 95 Nasal 4.0L Cannula 10/08 2214 97.5 115 20 130/80 95 10/08 1640 95 Nasal 4.0L Cannula 10/08 1600 94 Nasal 4.0L Cannula 10/08 1421 98.3 87 18 140/80 90 Nasal 4.0L Cannula 10/08 0944 93 Nasal 4.0L Cannula Intake & Output 10/09 1600 10/09 0800 10/09 0000 Intake Total 360 360 Output Total Balance 360 360 Intake, Oral 360 360 Physical Exam General Appearance: Alert, Oriented X3, Cooperative Skin Temp/Moisture Exam: Warm/Dry HEENT: Atraumatic, PERRLA, EOMI Neck: Supple Cardiovascular: Normal S1, Normal S2 Lungs: Clear to Auscultation, decreased breath sounds b/l Abdomen: Soft, No Tenderness Neurological: Normal Speech, Strength at 5/5 X4 Ext, Normal Tone, Sensation Intact Extremities: No Edema Assessment/Plan Assessment: 57-year-old woman with past medical history of COPD, recurrent bronchitis, bipolar disorder, depression here with shortness of breath, wheezing, productive cough continues to smoke actively recent discharges, last one in July with COPD exacerbation to be Admitted to general medicine floors for acute COPD exacerbation associated with hypoxemia. Acute hypoxic respiratory failure due to COPD exacerbation: -We will continue supplemental oxygen 4 L to maintain saturation above 90%. Patient still having exertional dyspnea and desaturation on ambulation. -we will cntinue po predisone 60mg daily. -We will discontinue acetylcysteine and continue by mouth Mucinex. -Possibly patient needs home oxygen this time. -We will discharge the patient tomorrow as recommended by nurse prn with tappering dose of prednisone. Acute bronchitis: -Patient completed 5 days course of azithromycin. -we will get chest physiotherapy to help her bring up sputum. Diarrhea:(resolved) -Patient complaining of 3 bowel movement that her lows and greenish in color overnight. -Stool C. difficile results are still pending. -Patient's diarrhea has resolved.. Chronic back pain: -We will continue IV morphine every 6 when necessary -We will continue Percocet 1 tablet every 6 when necessary -We will avoid high dose of morphine or opiates to prevent respiratory Depression. Smoking cessation: -Will counseled the patient for smoking cessation -We will help her with nicotine patch. Bipolar disorder: -We will continue her home meds. DVT prophylaxis: Mechanical and Lovenox CODE STATUS: Full code Problem List: 1. Acute respiratory failure with hypoxia 2. COPD exacerbation 3. 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 Improved today, finally moving deep sputum, down to 3L NC. Still wheezing but improving. 1. COPD Exacerbation 2. Acute hypoxemic respiratory failure 3. Acute bronchitis Plan - Continue on general medicine - Continue Prednisone - Nebulizer treatments - Increase Morphine to 4mg PRN - Sputum culture - Pulmonary consult - Continue home medications - DVT PPx
--- NOTE | 2017-10-09 09:38 | PN- Pulmonary ---
Subjective HPI/Critical Care Issues: pt seen and examined stable, no events Objective Current Medications: Current Medications Sig/Leda Start time Last Medication Dose Route Stop Time Status Admin Acetaminophen 650 MG .STK-MED ONE 10/08 1146 DC PO 10/08 1147 Acetaminophen 650 MG Q6P PRN 09/30 1400 AC 10/08 PO 1149 Acetaminophen 1,000 MG Q6P PRN 09/30 1400 AC 09/30 IV 1606 Acetylcysteine 2 ML BID 10/05 1117 DC 10/08 INH 10/08 2200 2050 Albuterol Sulfate 3 ML EVERY 4 HRS/AWAKE 10/01 0800 AC 10/09 INH 0804 Albuterol Sulfate 2 PUF Q4P PRN 09/30 1415 AC INH Aripiprazole 10 MG QAM 10/01 1000 AC 10/09 PO 0909 Benzonatate 100 MG Q8H 10/02 1400 AC 10/09 PO 0457 Bisacodyl 5 MG DAILY 10/08 1000 AC 10/08 PO 1045 Budesonide/ 2 PUF BID 09/30 1400 AC 10/09 Formoterol Fumarate INH 0911 Enoxaparin Sodium 40 MG DAILY 10/01 1000 AC 10/09 SC 0909 Fluoxetine HCl 20 MG QAM 10/01 1000 AC 10/09 PO 0910 Guaifenesin 600 MG Q12 09/30 1358 AC 10/09 PO 0910 Methylprednisolone 40 MG Q12 10/06 2200 DC 10/08 IV 10/08 2300 2306 Morphine Sulfate 2 MG Q6P PRN 10/01 0900 AC 10/09 IV 0457 Nicotine 14 MG DAILY 09/30 1708 AC 10/09 TOP 0910 Oxycodone/ 1 TAB Q6P PRN 10/01 0915 AC 10/09 Acetaminophen PO 0421 Polyethylene Glycol 17 GM DAILY 10/08 1000 AC 10/08 PO 1045 Prednisone 60 MG DAILY 10/09 1000 AC 10/09 PO 0910 Ramelteon 8 MG AT BEDTIME 09/30 2200 AC 10/08 PO 2306 Tiotropium [place] 1 PUF DAILY 09/30 1400 AC 10/09 INH 0911 Vital Signs & I&O Last 24 Hrs of Vitals and I&O: Vital Signs Date Time Temp Pulse Resp B/P B/P Pulse O2 O2 Flow FiO2 Mean Ox Delivery Rate 10/09 804 94 Nasal 4.0L Cannula 10/09 0730 Nasal 4.0L Cannula 10/09 0611 97.9 103 20 152/90 93 Nasal Cannula 10/09 0000 105 10/09 0000 95 Nasal 4.0L Cannula 10/08 2214 97.5 115 20 130/80 95 10/08 1640 95 Nasal 4.0L Cannula 10/08 1600 94 Nasal 4.0L Cannula 10/08 1421 98.3 87 18 140/80 90 Nasal 4.0L Cannula 10/08 0944 93 Nasal 4.0L Cannula Intake & Output 10/09 1600 10/09 0800 10/09 0000 Intake Total 360 360 Output Total Balance 360 360 Intake, Oral 360 360 Exam Other Physical Findings: gen awake and alert heent ncat cvs s1, s2 lung rare bibasilar rhonchi improved abd soft, bs+ ext without edema Results Last 24 Hrs of Lab Results: Laboratory Tests 10/09/17918: Sodium Pending, Potassium Pending, Chloride Pending, Carbon Dioxide Pending, Anion Gap Pending, BUN Pending, Creatinine Pending, BUN/Creatinine Ratio Pending , CBC w Diff Pending, WBC Pending, RBC Pending, Hgb Pending, Hct Pending, MCV Pending, MCH Pending, RDW Pending, Plt Count Pending, MPV Pending, PUBS MCHC Pending Impression/Plan Impression/Plan Impression/Plan: Impression 67-year-old woman. * COPD exacerbation, possible URI * tobacco depenedence Plan -mucomyst can be stopped today, can begin mucinex po -dc solumedrol, begin prednisone 60mg today, taper by 10mg every 3 days, dc planning -TRC/nebs -oob/ambulate, assess o2 needs DVT prophylaxis at all times
[2017-10-09] MEDS ORDERED: PREDNISONE20 M1 PO (10:32)
[2017-10-09 10:37] LABS: ABSOLUTE BASOPHIL COUNT 0 /CUMM (0.0-0.2); ABSOLUTE EOSINOPHIL COUNT 0 /CUMM (0.0-0.7); ABSOLUTE GRANULOCYTE CT 16.3 /CUMM (1.4-6.5); ABSOLUTE LYMPH COUNT 2.1 /CUMM (1.2-3.4); ABSOLUTE MONOCYTE COUNT 0.6 /CUMM (0.10-0.60); BASOPHIL % 0 % (0.0-2.0); EOSINOPHIL % 0 % (0-5); HEMATOCRIT 47.4 % (37-47); MEAN CORPUSCULAR HGB 31.1 PG (27.0-31.0); MEAN CORPUSCULAR HGB CONC 33.7 G/DL (33.0-37.0); MEAN CORPUSCULAR VOLUME 92.2 FL (81.0-99.0); MEAN PLATELET VOLUME 8.1 FL (7.4-10.4); PLATELET COUNT 236 /CUMM (130-400); RBC DISTRIBUTION WIDTH 13.4 % (11.5-14.5); RED BLOOD CELL CT 5.14 /CUMM (4.20-5.40)
[2017-10-09 14:24] VITALS: BP 140/70
[2017-10-09 22:35] VITALS: BP 132/70
[2017-10-10 06:25] VITALS: BP 128/70
--- NOTE | 2017-10-10 07:27 | PN- Housestaff ---
JavierChaparro 10/10/17 0726: Subjective Follow-up For: Acute on chronic hypoxic respiratory failure due to COPD exacerbation Subjective: No overnight events. Patient made afebrile overnight. Seen and examined this morning. She denied any chest pain, palpitation, nausea, vomiting, diarrhea, abdominal pain and dysuria. Patient still on 3L oxygen and she reported that she desaturated again on oxygen. Patient is on prednisone taper and we are planning to send her home with oxygen and patient agreed with the plan. She will follow chief data officer as outpatient after discharge. Review of Systems Constitutional: Reports: no symptoms. EENTM: Reports: no symptoms. Cardiovascular: Reports: no symptoms. Respiratory: Reports: cough, short of breath. Gastrointestinal: Reports: no symptoms. Genitourinary: Reports: no symptoms. Musculoskeletal: Reports: see HPI. Neurological/Psychological: Reports: no symptoms. Objective Last 24 Hrs of Vital Signs/I&O Vital Signs Date Time Temp Pulse Resp B/P B/P Pulse O2 O2 Flow FiO2 Mean Ox Delivery Rate 10/10 0737 96 Nasal 3.0L Cannula 10/10 0625 97.9 104 20 128/70 93 Nasal 3.0L Cannula 10/10 0000 Nasal 3.0L Cannula 10/09 2235 98.1 97 20 132/70 94 Nasal Cannula 10/09 1627 94 Nasal 3.0L Cannula 10/09 1434 Nasal 4.0L Cannula 10/09 1424 98.1 100 18 140/70 91 Nasal 3.0L Cannula Intake & Output 10/10 1600 10/10 0800 10/10 0000 Intake Total 600 600 Output Total Balance 600 600 Intake, Oral 600 600 Physical Exam General Appearance: Alert, Oriented X3, Cooperative, No Acute Distress Skin Temp/Moisture Exam: Warm/Dry HEENT: Atraumatic, PERRLA, EOMI Neck: Supple Cardiovascular: Normal S1, Normal S2 Lungs: Decreased breath sounds b/l Abdomen: Soft, No Tenderness Neurological: Normal Speech, Strength at 5/5 X4 Ext, Normal Tone, Sensation Intact Extremities: No Edema Assessment/Plan Assessment: 57-year-old woman with past medical history of COPD, recurrent bronchitis, bipolar disorder, depression here with shortness of breath, wheezing, productive cough continues to smoke actively recent discharges, last one in July with COPD exacerbation to be Admitted to general medicine floors for acute COPD exacerbation associated with hypoxemia. Acute hypoxic respiratory failure due to COPD exacerbation: -We will continue supplemental oxygen to maintain saturation above 90%. Patient still having exertional dyspnea and desaturation on ambulation. -we will cntinue po predisone 60mg daily with tapering dose. -We will discontinue acetylcysteine and continue by mouth Mucinex. -Possibly patient needs home oxygen this time. -We will discharge the patient on home oxygen with tapering dose of prednisone and she will follow the chief data officer as an outpatient. Patient agreed with the plan -His oxygen requirement has decreased now. Her nausea is using 3 L of oxygen and maintaining saturation 94% at rest. Acute bronchitis: -Patient completed 5 days course of azithromycin. -we will get chest physiotherapy to help her bring up sputum. Diarrhea:(resolved) -Patient complaining of 3 bowel movement that her lows and greenish in color overnight. -Stool C. difficile results are still pending. -Patient's diarrhea has resolved.. Chronic back pain: -We will continue IV morphine every 6 when necessary -We will continue Percocet 1 tablet every 6 when necessary -We will avoid high dose of morphine or opiates to prevent respiratory Depression. Smoking cessation: -Will counseled the patient for smoking cessation -We will help her with nicotine patch. Bipolar disorder: -We will continue her home meds. DVT prophylaxis: Mechanical and Lovenox CODE STATUS: Full code Problem List: 1. Acute respiratory failure with hypoxia 2. 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 Improved today, finally moving deep sputum, down to 3L NC. 1. COPD Exacerbation 2. Acute hypoxemic respiratory failure 3. Acute bronchitis Plan - Stable for discharge home - Continue Prednisone taper - Percocet for pain on discharge - Outpatient pulmonary follow up - Continue home medications
--- NOTE | 2017-10-10 10:52 | PN- Pulmonary ---
Subjective HPI/Critical Care Issues: pt seen and examined planning on dc today Objective Current Medications: Current Medications Sig/Leda Start time Last Medication Dose Route Stop Time Status Admin Acetaminophen 650 MG Q6P PRN 09/30 1400 AC 10/08 PO 1149 Acetaminophen 1,000 MG Q6P PRN 09/30 1400 AC 09/30 IV 1606 Albuterol Sulfate 3 ML EVERY 4 HRS/AWAKE 10/01 0800 AC 10/10 INH 0734 Albuterol Sulfate 2 PUF Q4P PRN 09/30 1415 AC INH Aripiprazole 10 MG QAM 10/01 1000 AC 10/10 PO 0940 Benzonatate 100 MG Q8H 10/02 1400 AC 10/10 PO 0520 Bisacodyl 5 MG DAILY 10/08 1000 AC 10/08 PO 1045 Budesonide/ 2 PUF BID 09/30 1400 AC 10/10 Formoterol Fumarate INH 0941 Enoxaparin Sodium 40 MG DAILY 10/01 1000 AC 10/10 SC 0940 Fluoxetine HCl 20 MG QAM 10/01 1000 AC 10/10 PO 0940 Guaifenesin 600 MG Q12 09/30 1358 AC 10/10 PO 0940 Morphine Sulfate 4 MG Q6P PRN 10/09 1245 AC 10/10 IV 0838 Morphine Sulfate 2 MG Q6P PRN 10/01 0900 DC 10/09 IV 0457 Nicotine 14 MG DAILY 09/30 1708 AC 10/10 TOP 0941 Oxycodone/ 1 TAB Q6P PRN 10/01 0915 AC 10/10 Acetaminophen PO 0520 Polyethylene Glycol 17 GM DAILY 10/08 1000 AC 10/08 PO 1045 Prednisone 60 MG DAILY 10/09 1000 AC 10/10 PO 0940 Ramelteon 8 MG AT BEDTIME 09/30 2200 AC 10/09 PO 2140 Tiotropium Griffith 1 PUF DAILY 09/30 1400 AC 10/09 INH 0911 Vital Signs & I&O Last 24 Hrs of Vitals and I&O: Vital Signs Date Time Temp Pulse Resp B/P B/P Pulse O2 O2 Flow FiO2 Mean Ox Delivery Rate 10/10 0737 96 Nasal 3.0L Cannula 10/10 624 97.9 104 20 128/70 93 Nasal 3.0L Cannula 10/10 0000 Nasal 3.0L Cannula 10/095 98.1 97 20 132/70 94 Nasal Cannula 10/09 1627 94 Nasal 3.0L Cannula 10/09 1434 Nasal 4.0L Cannula 10/09 1424 98.1 100 18 140/70 91 Nasal 3.0L Cannula Intake & Output 10/10 1600 10/10 0800 10/10 0000 Intake Total 600 600 Output Total Balance 600 600 Intake, Oral 600 600 Exam Other Physical Findings: gen awake and alert heent ncat cvs s1, s2 lung rare bibasilar rhonchi improved abd soft, bs+ ext without edema Impression/Plan Impression/Plan Impression/Plan: Impression 67-year-old woman. * COPD exacerbation, possible URI * tobacco depenedence Plan -mucinex po -prednisone taper by 10mg every 3 days, dc planning -TRC/nebs -oob/ambulate, assess o2 needs DVT prophylaxis at all times okay for dc if stable
[2017-10-10] MEDS ORDERED: PERCOCET 5-3251 EACH PO ×2 (11:01→11:05)
[2017-10-10] MEDS ORDERED: PREDNISONE20 M1 PO (11:02)
[2017-10-10 14:01] VITALS: BP 120/58
== END 2017-10-10 16:35 | DRG 190 ==
LOC: ERH 08:39 → 2NA 12:24 → ERHI 12:24 → ENRESERV 13:33 → ENTRNSPT 13:54 → EDTRNSPTSTS 14:00 → 2NA 14:23 → CMPTRNSPT 14:31 → 2NA 10-03 06:16 → ENPENDDIS 10-10 14:26 → 2NA 10-10 16:35
PROVIDERS: Dermatology; Emergency Medicine; Internal Medicine Hematology & Oncology; Student in an Organized Health Care Education/Training Program
DX: J44.1 Chronic obstructive pulmonary disease with (acute) exacerbation (principal); J96.21 Acute and chronic respiratory failure with hypoxia; Z99.81 Dependence on supplemental oxygen; J20.9 Acute bronchitis, unspecified; J44.0 Chronic obstructive pulmonary disease with (acute) lower respiratory infection; F17.210 Nicotine dependence, cigarettes, uncomplicated; F31.9 Bipolar disorder, unspecified; G89.29 Other chronic pain; M54.9 Dorsalgia, unspecified; R19.7 Diarrhea, unspecified
CPT/HCPCS: 2NASP; 36415; 81001; 82436; 87040; 87070; 87086; 87804; 87804-59; 93005; 93010; 96374; 96375; J0131; J0401; J0456; J0696; J1650; J2920; J2930; J3490; J7060; J7608

== ENCOUNTER 2017-10-21 12:44 | Observation (INO) | payer OTHER ==
[~2017-10-21] VITALS: Ht 165.1 cm; Wt 81.6 kg
--- NOTE | 2017-10-21 13:27 | ED DYSPNEA/ASTHMA COMPLAINT ---
History of Present Illness General Chief Complaint: Dyspnea (COPD, CHF, Other) Stated Complaint: SIB DR DAVALOS FOR SOB O2 92% AT [facility] Source: patient Exam Limitations: no limitations Vital Signs & Intake/Output Vital Signs & Intake/Output Vital Signs Date Time Temp Pulse Resp B/P B/P Pulse O2 O2 Flow FiO2 Mean Ox Delivery Rate 10/21 1630 98.5 106 18 146/67 16 Nasal 4.0L Cannula 10/21 1445 95 Nasal 2.0L Cannula 10/21 1410 98.2 126 28 132/74 96 Nasal 4.0L Cannula 10/21 1343 96 Nasal 4.0L Cannula 10/21 1300 99.4 134 22 159/88 89 Room Air Allergies Coded Allergies: NSAIDS (Non-Steroidal Anti-Inflamma (Severe, ANAPHYLAXIS 03/23/17) ibuprofen (Severe, ANAPHYLAXIS 03/23/17) Penicillins (Intermediate, RASH 03/23/17) codeine (Intermediate, RASH 12/15/16) gabapentin (Intermediate, SWOLLEN FEET 03/23/17) ketorolac (Intermediate, RASH\HIVES 03/23/17) Reconcile Medications Albuterol Sulfate (Proair Hfa) 90 MCG HFA.AER.AD 2 PUF INH PRN COPD/EMPHYSEMA (Reported) Aripiprazole (Abilify) 10 MG TABLET 1 TAB PO QAM MENTAL HEALTH (Reported) Fluoxetine HCl (Prozac) 20 MG CAPSULE 1 CAP PO QAM MENTAL HEALTH (Reported) Fluticasone/Salmeterol (Advair 250-50 Diskus) 250 MCG-50 MCG/DOSE BLST.W.DEV 1 PUF INH BID COPD/EMPHYSEMA (Reported) Prednisone 20 MG TABLET 0 PO DAILY COPD On Take 10/11 60 MG 10/12-10/14 50 MG 10/15-10/17 40 MG 10/18-10/20 30 MG 10/21-10/23 20 MG 10/24-10/26 10 MG Then Stop Tiotropium [place] (Spiriva) 18 MCG CAP.W.DEV 1 CAP INH DAILY COPD/EMPHYSEMA (Reported) Triage Note: PT STATES SHE SPOKE WITH DR. MELLO FOR EVAL PT IS CURRENTLY ON 02 4L VIA HI AND FINDS HERSELF SOB AND WHEEZING WHEN SHE WALKS AROUND. PT STATES SHE WAS DROPPED OFF BUT DIDN'T HAVE A PORTABLE TANK TO USE, PT ARRIVED TO ER ON RA. PT COUGHING STATES SHE HAS BROWNISH GREEN THICK SPUTM Triage Nurses Notes Reviewed? yes Onset: Gradual Duration: day(s): Timing: recent history Severity: moderate Activities at Onset: activity HPI: 57yo female with hx of COPD, emphysema, R lung mass presents to ED sent in by Dr. Mello for dyspnea and hypoxia. Patient reports dyspnea worsening over the past 3 days despite 3-4 liters oxygen at home. Dyspnea is worse with exertion and is associated with tachycardia, HR up to 170's at home with ambulation. Patient checks her pulse oximetry, today oxygen saturation was 86- 88%, she called Dr. Mello who sent her here to the ED. she reports persistent cough, productive of dark green/brown sputum for the past 3 days. Patient states she has pain in bilateral chest chronically relating to her lung mass however reports new onset substernal chest pain beginning last night. Chest pain described as pleuritic, constant, 6/10. Patient reports mild nausea with 2 episodes of loose stools. The patient denies fevers, chills, abdominal pain, vomiting. (Jenna STEVEN,Lizzie Austin) Past History Travel History Traveled to [place] past 21 day No Medical History Any Pertinent Medical History? 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/Reproductive: NONE History of MRSA: No History of VRE: No History of CDIFF: No Influenza Vaccine: 06/16/17 Surgical History Surgical History: appendectomy, hysterectomy, partial removal of left lung appendicectomy Schwanoma(L4,5) removal in 1992 Psychosocial History Who do you live with Significant Other Services at Home None What is your primary language German Tobacco Use: Quit >30 days ago ETOH Use: denies use Illicit Drug Use: denies illicit drug use Family History Family History, If Any: MOTHER FHx: bipolar disorder FATHER FHx: prostate cancer SISTER FH: diabetes mellitus GRANDMOTHER FHx: ovarian cancer Hx Contributory? No (Lizzie Martinez) Review of Systems Review of Systems Constitutional: Reports: no symptoms. EENTM: Reports: no symptoms. Respiratory: Reports: see HPI. Cardiovascular: Reports: see HPI. GI: Reports: see HPI. Genitourinary: Reports: no symptoms. Musculoskeletal: Reports: no symptoms. Skin: Reports: no symptoms. Neurological/Psychological: Reports: no symptoms. Hematologic/Endocrine: Reports: no symptoms. Immunologic/Allergic: Reports: no symptoms. All Other Systems: Reviewed and Negative (Lizzie Martinez) Physical Exam Physical Exam General Appearance: well developed/nourished, no apparent distress, alert, awake Head: atraumatic, normal appearance Eyes: Bilateral: normal appearance. Ears, Nose, Throat: normal pharynx, hearing grossly normal Neck: normal inspection, supple, full range of motion Respiratory: normal breath sounds, no respiratory distress, mildly diminished breath sounds through out, crackles right lower lung, anterior chest tenderness Cardiovascular: tachycardia Peripheral Pulses: 2+ radial (R), 2+ radial (L) Gastrointestinal: normal bowel sounds, soft, non-tender, no organomegaly Extremities: normal inspection, normal range of motion Neurologic/Psych: awake, alert, oriented x 3, normal mood/affect Skin: intact, normal color, warm/dry Core Measures ACS in differential dx? Yes CVA/TIA Diagnosis No Sepsis Present: No Sepsis Focused Exam Completed? No (Lizzei Martinez) Progress Differential Diagnosis: asthma, AMI, bronchitis, costochondritis, CHF, COPD, musculoskeletal pain, pericarditis, pulmonary embolism, pneumonia, pneumothorax, rib fracture, unstable angina Plan of Care: Orders Procedure Date/time Status Heart Healthy Diet 10/22 B Active LACTIC ACID 10/[address] in observation 10/21 1616 Active ED Holding Orders 10/21 1616 Active Vital Signs 10/21 1616 Active Code Status 10/21 1616 Active Add-on Test (ER Only) 10/21 1606 Active MIXED VENOUS BLOOD GAS (GEN) 10/21 1432 Complete AEROSOL (GEN) 10/21 1418 Complete D-DIMER 10/21 1350 Complete RAPID VIRAL INFLUENZA A 10/21 1345 Complete BLOOD CULTURE 10/21 1345 Active TROPONIN LEVEL 10/21 1345 Complete LACTIC ACID 10/21 1345 Complete COMPREHENSIVE METABOLIC PANEL 10/21 1345 Complete CBC WITHOUT DIFFERENTIAL 10/21 1345 Complete B-TYPE NATRIURETIC PEP (BNP) 10/21 1345 Complete EKG 10/21 1246 Active Laboratory Tests 10/21/17 1350: Anion Gap 16, Estimated GFR > 60, BUN/Creatinine Ratio 32.0 H, Glucose 176 H, Lactic Acid 2.8 H, Calcium 10.2, Total Bilirubin 0.4, AST 23, ALT 59 H, Alkaline Phosphatase 105, Troponin I < 0.01, Iwf-S-Savliyhidmr Pept 23.9, Total Protein 7.2, Albumin 4.6, Globulin 2.6, Albumin/Globulin Ratio 1.8, D-Dimer High Sensitivty < 200, CBC w Diff MAN DIFF ORDERED, RBC 4.92, MCV 91.1, MCH 30.8, RDW 13.5, MPV 7.6, Gran % 94.0 H, Lymphocytes % 5.2 L, Monocytes % 0.7 L, Eosinophils % 0.1, Basophils % 0, Absolute Granulocytes 15.4 H, Segmented Neutrophils 90 H, Band Neutrophils 5, Absolute Lymphocytes 0.9 L, Lymphocytes 4 L, Monocytes 1 L, Absolute Monocytes 0.1, Absolute Eosinophils 0, Absolute Basophils 0, Platelet Estimate ADEQUATE, Normocytic RBCs VERIFIED, Normochromic RBCs VERIFIED, PUBS MCHC 33.8 10/21/17 1345: Bicarbonate Actual 25, Mixed VBG pH 7.47 H, Mixed VBG pCO2 34 L, Mixed VBG O2 Saturation 63 H, Carboxyhemoglobin 1.8, O2 Concentration % 2L, O2 Delivery Method NC, Phlebotomy Draw Site VENOUS Microbiology 10/21 1400 NASOPHARYN: Influenza Virus A & B Rapid Smear - COMP 10/21 1350 BLOOD: Blood Culture - RECD 10/21 1345 BLOOD: Blood Culture - ORD While ambulating patient symptomatic with dyspnea, requires to rest every few steps, pulse oxygenation 94% on 4 L O2. Patient with elevated lactic acid, persistent tachycardia, active chest pain. Patient's EKG is unchanged from prior study, troponin negative. D-dimer is negative. Patient was recently admitted for a ten-day stay and discharged earlier this month. The patient was discussed with case management to recommend observation at this time. Given patient's dyspnea despite increased oxygen use this patient has unsafe for discharge home. Diagnostic Imaging: Viewed by Me: Radiology Read. Discussed w/RAD: Radiology Read. Radiology Impression: PATIENT: MICHEAL CORTEZ PRESENT AGE: 57 PATIENT ACCOUNT NO: [id number] : 56 LOCATION: [facility] ORDERING PHYSICIAN: Lizzie STEVEN SERVICE DATE: 10/21/17 EXAM TYPE: RAD - XRY-CHEST XRAY, SINGLE VIEW EXAMINATION:\H\ \N\XR CHEST CLINICAL INFORMATION: Shortness of breath COMPARISON: 10/03/[address] scan TECHNIQUE: AP upright portable view of the chest was obtained. FINDINGS: The cardiomediastinal silhouette is normal. The pulmonary vascularity is within normal limits. Mild bilateral apical pleural thickening noted. No focal pulmonary consolidation is seen. The costophrenic angles are sharp. No pleural effusions. No pneumothorax. The visualized bones are intact. IMPRESSION: No acute cardiopulmonary findings. DICTATED BY: Jay Domingo MD DATE/TIME DICTATED:10/21/171422 SINGE WINDER:NORRIS DATE/TIME TRANSCRIBED:10/21/171422 CONFIDENTIAL, DO NOT COPY WITHOUT APPROPRIATE AUTHORIZATION. <Electronically signed in Other Vendor System> SIGNED BY: Jay Domingo MD 10/21/171428 Initial ED EKG: sinus tachycardia @134bpm, nonspecific ST changes Prior EKG: unchanged (10/01/17) (Jenna STEVEN,Lizzie Austin) Departure Departure Disposition: STILL A PATIENT Condition: Stable Clinical Impression Primary Impression: COPD exacerbation Secondary Impressions: Chest pain Qualifiers: Chest pain type: unspecified Qualified Code: R07.9 - Chest pain, unspecified Dyspnea Qualifiers: Dyspnea type: dyspnea on exertion Qualified Code: R06.09 - Other forms of dyspnea Referrals: Patient Has No Primary Care Dr (PCP/Family) Departure Forms: Customer Survey General Discharge Information Observation Note Spoke With: Tuan Arguello MD Physician Advisor Notified: SCOTTIE KEYS,BONY Hong Place Patient In: Non-ED OBS Care Area Rationale for Observation: My rational for observation is as follows [chest pain requiring cardiology consult, repeat EKGs, trend troponins, telemetry monitoring, COPD exacerbation requiring supplemental oxygen, IV steroids, possible pulmonology consult, premature discharge would be medically unsafe.]. (Lizzie Martinez) PA/CRUDE UNIT OPERATOR Co-Sign Statement Statement: ED Attending supervision documentation- [X] I saw and evaluated the patient. I have also reviewed all the pertinent lab results and diagnostic results. I agree with the findings and the plan of care as documented in the PA's/CRUDE UNIT OPERATOR's documentation. [X] I have reviewed the ED Record and agree with the PA's/CRUDE UNIT OPERATOR's documentation. [] Additions or exceptions (if any) to the PAs/CRUDE UNIT OPERATOR's note and plan are summarized below: [Patient to be brought back in as an observation. IV steroids, nebulizers, pulmonary consultation] (Haider KEYS,Kayden Hong) Critical Care Note Critical Care Note Critical Care Time: non-applicable (Jenna STEVEN,Lizzie Austin) Critical Care Time: non-applicable (Lizzie Martinez)
[2017-10-21 14:03] LABS: ABSOLUTE BASOPHIL COUNT 0 /CUMM (0.0-0.2); ABSOLUTE EOSINOPHIL COUNT 0 /CUMM (0.0-0.7); ABSOLUTE GRANULOCYTE CT 15.4 /CUMM (1.4-6.5); ABSOLUTE LYMPH COUNT 0.9 /CUMM (1.2-3.4); ABSOLUTE MONOCYTE COUNT 0.1 /CUMM (0.10-0.60); BASOPHIL % 0 % (0.0-2.0); EOSINOPHIL % 0.1 % (0-5); HEMATOCRIT 44.8 % (37-47); MEAN CORPUSCULAR HGB 30.8 PG (27.0-31.0); MEAN CORPUSCULAR HGB CONC 33.8 G/DL (33.0-37.0); MEAN CORPUSCULAR VOLUME 91.1 FL (81.0-99.0); MEAN PLATELET VOLUME 7.6 FL (7.4-10.4); PLATELET COUNT 214 /CUMM (130-400); RBC DISTRIBUTION WIDTH 13.5 % (11.5-14.5); RED BLOOD CELL CT 4.92 /CUMM (4.20-5.40); WHITE BLOOD CELL COUNT 16.4 /CUMM (4.8-10.8)
--- NOTE | 2017-10-21 14:29 | RADIOLOGY REPORT ---
EXAMINATION:\H\ \N\XR CHEST CLINICAL INFORMATION: Shortness of breath COMPARISON: 10/03/[address] scan TECHNIQUE: AP upright portable view of the chest was obtained. FINDINGS: The cardiomediastinal silhouette is normal. The pulmonary vascularity is within normal limits. Mild bilateral apical pleural thickening noted. No focal pulmonary consolidation is seen. The costophrenic angles are sharp. No pleural effusions. No pneumothorax. The visualized bones are intact. IMPRESSION: No acute cardiopulmonary findings.
--- NOTE | 2017-10-21 18:36 | History & Physical ---
Angela KEYS,[facility] 10/21/17 3175: General Information and HPI MD Statement: I have seen and personally examined MICHEAL CORTEZ and documented this H&P. The patient is a 57 year old F who presented with a patient stated chief complaint of [hypoxia]. Source of Information: patient, old records Exam Limitations: no limitations History of Present Illness: Mr. Cortez is 57 year old female with PMH of COPD on home oxygen 3L, emphysema, right lung mass stable follow up with Dr. Lopez, partial removal of left lung for complicated pneumonia who presented to ED with CC of dyspnea and hypoxia for 2 days. Patient was recently discharged on 10/10/17 from hospital after was treated for COPD exacerbation and was started on home oxygen 3 L. She reported improvement of her symptoms however she has history of sick contact, reported that since she has been experiencing productive cough, green sputum, chills, dyspnea to 83% despite increasing the oxygen to 4 L from 3. She has been taking the nebs and steroid as directed. Reported chest pain pleuritic in nature however changed to be subcostal left side radiating to mid chest and left neck constant pain not improved by acetaminophen. Patient reported palpitation not related to chest pain. Allergies/Medications Allergies: Coded Allergies: NSAIDS (Non-Steroidal Anti-Inflamma (Severe, ANAPHYLAXIS 03/23/17) ibuprofen (Severe, ANAPHYLAXIS 03/23/17) Penicillins (Intermediate, RASH 03/23/17) codeine (Intermediate, RASH 12/15/16) gabapentin (Intermediate, SWOLLEN FEET 03/23/17) ketorolac (Intermediate, RASH\HIVES 03/23/17) Home Med list Albuterol Sulfate (Proair Hfa) 90 MCG HFA.AER.AD 2 PUF INH PRN COPD/EMPHYSEMA (Reported) Aripiprazole (Abilify) 10 MG TABLET 1 TAB PO QAM MENTAL HEALTH (Reported) Fluoxetine HCl (Prozac) 20 MG CAPSULE 1 CAP PO QAM MENTAL HEALTH (Reported) Fluticasone/Salmeterol (Advair 250-50 Diskus) 250 MCG-50 MCG/DOSE BLST.W.DEV 1 PUF INH BID COPD/EMPHYSEMA (Reported) Prednisone 20 MG TABLET 0 PO DAILY COPD On Take 10/11 60 MG 10/12-10/14 50 MG 10/15-10/17 40 MG 10/18-10/20 30 MG 10/21-10/23 20 MG 10/24-10/26 10 MG Then Stop Tiotropium [place] (Spiriva) 18 MCG CAP.W.DEV 1 CAP INH DAILY COPD/EMPHYSEMA (Reported) Past History Travel History Traveled to [place] past 21 day No Medical History Neurological: NONE EENT: NONE Cardiovascular: NONE Respiratory: COPD, emphysema, MASS (IN R LUNG) LT UPPER LOBECTOMY Gastrointestinal: NONE Hepatic: NONE Renal: KIDNEY STONES Musculoskeletal: NONE Psychiatric: NONE Endocrine: NONE Blood Disorders: NONE Cancer(s): NONE 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 boyfriend and his son Services at Home: None Primary Language: Armenian ETOH Use: denies use Illicit Drug Use: denies illicit drug use Living Will? no Functional Ability ADLs Independent: dressing, eating, toileting, bathing. Ambulation: independent IADLs Independent: shopping, housework, finances, food prep, telephone, transportation. Review of Systems Review of Systems Constitutional: Reports: see HPI. Exam & Diagnostic Data Last 24 Hrs of Vital Signs/I&O Vital Signs Date Time Temp Pulse Resp B/P B/P Pulse O2 O2 Flow FiO2 Mean Ox Delivery Rate 10/21 1907 98.0 110 22 142/78 93 Nasal 4.0L Cannula 10/21 1630 98.5 106 18 146/67 16 Nasal 4.0L Cannula 10/21 1445 95 Nasal 2.0L Cannula 10/21 1410 98.2 126 28 132/74 96 Nasal 4.0L Cannula 10/21 1343 96 Nasal 4.0L Cannula 10/21 1300 99.4 134 22 159/88 89 Room Air Intake & Output 10/21 1600 10/21 0800 10/21 0000 Intake Total 1000 Output Total Balance 1000 Intake, IV 1000 Patient 81.647 kg Weight Weight Reported by Patient Measurement Method Physical Exam General Appearance Alert, Oriented X3, Cooperative, No Acute Distress Skin No Rashes Skin Temp/Moisture Exam: Warm/Dry HEENT Atraumatic, PERRLA, EOMI, Mucous Membr. moist/pink Neck Supple Lymphatic no cervical lymphadenopathy Cardiovascular Regular Rate, Normal S1, Normal S2, No Murmurs Lungs Decrease air entery bilateral, no wheeze Abdomen Normal Bowel Sounds, Soft, No Tenderness Neurological Normal Gait, Normal Speech, Strength at 5/5 X4 Ext, Normal Tone, Sensation Intact, Cranial Nerves 3-12 NL, Reflexes 2+ Extremities No Clubbing, No Cyanosis, No Edema, Normal Pulses Observation Initial Note - I have personally examined MICHEAL CORTEZ on 10/21/17 at 2039. The disposition of MICHEAL CORTEZ is uncertain at this time and before a determination can be made, she requires a period of observation for the following reasons [ATYPICAL CHEST PAIN, COPD] Assessment/Plan Assessment: Mr. Cortez is 57 year old female with PMH of COPD on home oxygen 3L, emphysema, right lung mass stable follow up with Dr. Lopez, partial removal of left lung for complicated pneumonia who presented to ED with CC of dyspnea and hypoxia for 2 days. PROBLEM LIST #acute on chronic hypoxic respiratory failure #copd excerpation #lactic acidosis #atypical chest pain, reproducible #leukocytosis Plan observe in tele for atypical chest pain SOULMEDROL 40 BID AZITHROMYCIN LIDOCINE PATCH for chest pain NICTO PATCH NEBS MORPHIN 2 MG FOR SEVERE PAIN NO ASPIRIN FOR NSAIDS ALLERGY SERIAL ROPS AND EKG SERIAL LACTIC ACID, CONTINUE IVF 1 bag NS PULMONARY CONSULTION IN AM IF SOB DID NOT IMPROVE DO CT CHEST W/O CONTRAST CODE FULL DVT LOVONEX DIET REGULAR As Ranked By This Provider Problem List: 1. COPD Core Measures/Misc (06/18) Acute Coronary Syndrome ACS Diagnosis: No Congestive Heart Failure Congestive Heart Failure Diagnosis No Cerebrovascular Accident CVA/TIA Diagnosis: No VTE (View Protocol) VTE Risk Factors Age>40 No Mechanical VTE Prophylaxis d/t N/A MechProphylax Ordered No VTE Pharm Prophylaxis d/t NA PharmProphylax ordered Sepsis (View protocol) Sepsis Present: No Vahe Bass 10/22/17 0157: Attending MD Review Statement Attending Statement Attending MD Statement: examined this patient, discuss w/resident/PA/[employer], agreed w/resident/PA/[employer], reviewed EMR data (avail), reviewed images, amended to note Attending Assessment/Plan: CC: Low oxygen saturation PMH: COPD on 3 L nasal cannula O2, left upper lobectomy secondary to complicated pneumonia, right-sided lung benign lesion resolved , bipolar disorder Patient came to ER for worsening shortness of breath, productive cough and low oxygen saturation. Patient was discharged on October 10, was treated for COPD exacerbation, was discharged on 3 L nasal cannula and tapering dose of prednisone, patient was on 40 mg prednisone today, changing to 30 mg tomorrow. After discharge patient was feeling better for a few days but since last 4 days she started to notice worsening shortness of breath, cough with greenish yellow sputum production, palpitations, chills at home. Patient has sick contact with upper respiratory symptoms. Her symptoms also started with upper respiratory symptoms followed by worsening breathing. Patient's oxygen saturation were as low as 83% even with increasing her nasal cannula to 4 L. Patient also endorses chest pain, left-sided, since 3 days, on and off, more so with exertion, squeezing type, radiating to center of chest and left axilla, /10 currently. She also has generalized chest tightness which is worsening with deep breathing which she relates to her COPD. Patient's father had AK at 50s. Vitals: T max 99.4, pulse 134, RR 22, blood pressure 159/88, saturating 89% on 4 L nasal cannula, improved to 93% on 4 L after treatment On exam: A O 3, cooperative, mild respiratory distress, neck supple, JVD normal , no lymphadenopathy, mucosa moist, no focal neurological deficit, no dependent edema, no obvious skin rashes or inflammation CVS: S1-S2, RRR. RS: Bilateral decreased air entry, no obvious wheezing or crackles, reproducible left-sided pain, Abdomen: Soft, NT, ND, bowel sounds present. Labs: WBC 16.4, neutrophils 94%, bands 5, hemoglobin 15.1, hematocrit 44.8, platelet 214, BMP, LFT, troponin, proBNP unremarkable. Lactate 2.8, d-dimer less than 200, rapid influenza negative ECG: No acute changes CXR:No acute cardiopulmonary findings. Assessment and plan 57-year-old female with past medical history significant for COPD, recently started on home oxygen presented in ER for worsening symptoms since last 4 days followed by upper respiratory infection and sick contact reported to having upper respiratory infection. Patient endorses worsening of shortness of breath, productive cough with greenish colored sputum production, palpitations and chills but denies any fever. Her O2 requirement at home went up to 4 L even with that her oxygen saturations were 83%. She was getting short of breath even while eating food or doing minimal activity so she came to ER. On examination she has markedly decreased air entry bilaterally, probably secondary to emphysematous disease, no wheezing or crackles. Her shortness of breath appears secondary to COPD exacerbation precipitated apparent upper respiratory infection. No evidence of pneumonia on chest x-ray but should be watchful for pneumonia given her long prednisone course, significant leukocytosis with left shift and lactic acidosis. Along with the shortness of breath she also endorses left-sided chest pain which is very atypical, left-sided, nonradiating, on and off since 3 days, no significant troponin and ECG changes but given her significant smoking history and family history of CAD. We'll rule out any acute coronary syndrome. + COPD exacerbation + Chest pain rule out acute coronary syndrome + History of bipolar disorder - Place in observation on telemetry - Continuous telemetry monitoring - Serial troponin and EKGs - 2-D echo in a.m. if significant increase in troponin - Try to wean off oxygen to her home level 2-3 L - IV methylprednisolone 40 mg every 12 hours - IV azithromycin - TRC nebulization with albuterol and ipratropium scheduled and when necessary - Mucinex scheduled twice a day - Continue rest of the home medications - Adequate pain control - DVT prophylaxis - Pulmonary consult in a.m. - Repeat chest CT scan without contrast if significant fever spike, significant leukocytosis, persistence of symptoms to rule out pneumonia
[2017-10-21 22:55] VITALS: BP 144/72
[2017-10-22 05:38] LABS: ABSOLUTE BASOPHIL COUNT 0 /CUMM (0.0-0.2); ABSOLUTE EOSINOPHIL COUNT 0 /CUMM (0.0-0.7); ABSOLUTE MONOCYTE COUNT 0.2 /CUMM (0.10-0.60); BASOPHIL % 0.2 % (0.0-2.0); EOSINOPHIL % 0 % (0-5); GRANULOCYTE % 89.8 % (42.2-75.2); HEMATOCRIT 39.9 % (37-47); MEAN CORPUSCULAR HGB 30.3 PG (27.0-31.0); MEAN CORPUSCULAR HGB CONC 32.9 G/DL (33.0-37.0); MEAN CORPUSCULAR VOLUME 92.1 FL (81.0-99.0); MEAN PLATELET VOLUME 7.6 FL (7.4-10.4); PLATELET COUNT 194 /CUMM (130-400); RBC DISTRIBUTION WIDTH 13.3 % (11.5-14.5); RED BLOOD CELL CT 4.33 /CUMM (4.20-5.40); WHITE BLOOD CELL COUNT 11.2 /CUMM (4.8-10.8)
[2017-10-22 07:00] VITALS: BP 138/90
--- NOTE | 2017-10-22 10:40 | PN- Att Addend ---
Attending Addendum Attending Brief Note Patient seen and examined this morning. Her CMR has been reviewed and adjusted medications have been reordered she is also complaining of chronic pain and tramadol will be added to her regimen. Overall she feels much better her had a upper respiratory tract infection he is sick contacts. Yellowish sputum sent for culture. Saturating 97% on 4 L nasal cannula. She is afebrile. Generally - Awake, alert and comfortable without distress Head and neck - normocephalic, atraumatic, EOMI grossly intact Cardiovascular - S1, S2 Lungs -scattered rhonchi and crackles of the right base Abdomen - Bowel sounds positive, soft, non-tender Extremities - without edema Current Medications Sig/Leda Start time Last Medication Dose Route Stop Time Status Admin Acetaminophen 650 MG Q6P PRN 10/21 184 AC PO Albuterol Sulfate 3 ML EVERY 4 HRS/AWAKE 10/22 0800 AC 10/22 INH 0753 Albuterol Sulfate 3 ML ONCE ONE 10/21 1345 DC 10/21 INH 10/21 1346 1416 Ampicillin Sodium/ 0 .STK-MED ONE 10/21 1536 DC Sulbactam Sodium .ROUTE Aripiprazole 10 MG DAILY 10/22 1000 AC PO Azithromycin 500 MG DAILY@1900 10/21 1900 AC 10/21 Dextrose/Water 250 ML IV 1945 Budesonide/ 2 PUF BID 10/22 1000 AC Formoterol Fumarate INH Enoxaparin Sodium 0 .STK-MED ONE 10/21 1933 DC SC Enoxaparin Sodium 40 MG DAILY 10/21 1840 AC 10/22 SC 0929 Fluoxetine HCl 20 MG DAILY 10/22 1000 AC PO Guaifenesin 600 MG Q12 10/22 1000 AC 10/22 PO 0929 Ipratropium [place] 2.5 ML EVERY 4 HRS/AWAKE 10/22 0800 AC 10/22 INH 0753 Ipratropium [place] 2.5 ML ONCE ONE 10/21 1345 DC 10/21 INH 10/21 1346 1416 Lidocaine 1 PAT Q24H 10/21 1845 AC 10/21 EXT 1945 Methylprednisolone 40 MG Q12 10/21 2200 AC 10/22 IV 0929 Methylprednisolone 125 MG ONCE ONE 10/21 1445 DC 10/21 IV 10/21 1446 1415 Methylprednisolone 0 .STK-MED ONE 10/21 1411 DC .ROUTE Morphine Sulfate 0 .STK-MED ONE 10/21 1855 DC .ROUTE Morphine Sulfate 2 MG Q4P PRN 10/21 1845 AC 10/22 IV 0741 Morphine Sulfate 2 MG ONCE ONE 10/21 1830 DC 10/21 IV 10/21 1831 1857 Morphine Sulfate 0 .STK-MED ONE 10/21 1352 DC .ROUTE Morphine Sulfate 2 MG ONCE ONE 10/21 1345 DC 10/21 IV 10/21 1346 1350 Nicotine 21 MG Q24 10/22 1000 10/22 TOP 0929 Sodium Chloride 500 ML BOLUS ONE 10/21 1915 DC 10/21 IV 10/21 2014 1925 Sodium Chloride 1,000 ML Q10H 10/21 1900 DC 10/21 IV 10/22 0459 2130 Sodium Chloride 1,000 ML BOLUS ONE 10/21 1515 DC 10/21 IV 10/21 1614 1522 Laboratory Tests 10/22/17 0450: Lactic Acid 1.7 10/22/17 0450: Anion Gap 13, Estimated GFR > 60, BUN/Creatinine Ratio 35.0 H, Phosphorus 3.6, Magnesium 1.8, CBC w Diff NO MAN DIFF REQ, RBC 4.33, MCV 92.1, MCH 30.3, RDW 13.3, MPV 7.6, Gran % 89.8 H, Lymphocytes % 8.6 L, Monocytes % 1.4 L, Eosinophils % 0, Basophils % 0.2, Absolute Granulocytes 10.0 H, Absolute Lymphocytes 1.0 L, Absolute Monocytes 0.2, Absolute Eosinophils 0, Absolute Basophils 0, PUBS MCHC 32.9 L 10/22/17 0110: Troponin I < 0.01 10/21/17 2300: Lactic Acid Cancelled 10/21/17 2225: Lactic Acid 2.6 H 10/21/17 2030: Lactic Acid 3.2 H, Troponin I < 0.01 10/21/17 1702: Lactic Acid 2.8 H 10/21/17 1350: Anion Gap 16, Estimated GFR > 60, BUN/Creatinine Ratio 32.0 H, Glucose 176 H, Lactic Acid 2.8 H, Calcium 10.2, Total Bilirubin 0.4, AST 23, ALT 59 H, Alkaline Phosphatase 105, Troponin I < 0.01, Cpm-H-Ujwheaqnfwc Pept 23.9, Total Protein 7.2, Albumin 4.6, Globulin 2.6, Albumin/Globulin Ratio 1.8, D-Dimer High Sensitivty < 200, CBC w Diff MAN DIFF ORDERED, RBC 4.92, MCV 91.1, MCH 30.8, RDW 13.5, MPV 7.6, Gran % 94.0 H, Lymphocytes % 5.2 L, Monocytes % 0.7 L, Eosinophils % 0.1, Basophils % 0, Absolute Granulocytes 15.4 H, Segmented Neutrophils 90 H, Band Neutrophils 5, Absolute Lymphocytes 0.9 L, Lymphocytes 4 L, Monocytes 1 L, Absolute Monocytes 0.1, Absolute Eosinophils 0, Absolute Basophils 0, Platelet Estimate ADEQUATE, Normocytic RBCs VERIFIED, Normochromic RBCs VERIFIED, PUBS MCHC 33.8 10/21/17 1345: Bicarbonate Actual 25, Mixed VBG pH 7.47 H, Mixed VBG pCO2 34 L, Mixed VBG O2 Saturation 63 H, Carboxyhemoglobin 1.8, O2 Concentration % 2L, O2 Delivery Method NC, Phlebotomy Draw Site VENOUS Microbiology 10/21 1400 NASOPHARYN: Influenza Virus A & B Rapid Smear - COMP Vital Signs Date Time Temp Pulse Resp B/P B/P Pulse O2 O2 Flow FiO2 Mean Ox Delivery Rate 10/22 0800 97 Nasal 4.0L Cannula 10/22 0700 98.0 98 22 138/90 94 10/22 0000 Nasal 4.0L Cannula 10/21 2310 Nasal 4.0L Cannula 10/21 2255 97.8 115 26 144/72 94 Nasal 4.0L Cannula 10/21 1907 98.0 110 22 142/78 93 Nasal 4.0L Cannula 10/21 1630 98.5 106 18 146/67 16 Nasal 4.0L Cannula 10/21 1445 95 Nasal 2.0L Cannula 10/21 1410 98.2 126 28 132/74 96 Nasal 4.0L Cannula 10/21 1343 96 Nasal 4.0L Cannula 10/21 1300 99.4 134 22 159/88 89 Room Air Intake & Output 10/22 1600 10/22 0800 10/22 0000 Intake Total 700 750 Output Total Balance 700 750 Intake, IV 700 750 Patient 180 lb Weight Assessment/Plan Assessment/Plan Impression 57-year-old woman * Acute exacerbation of COPD secondary to tracheobronchitis * Chest discomfort has resolved * History of bipolar disorder Plan -Tramadol added 4 times a day and continue pain control -CMR reviewed will add Abilify Prozac and Symbicort. Will not add Spiriva at this time due to ipratropium abuse -TRC/nebs -Reduce FiO2 as tolerated to goal of 92% and above -Leukocytosis has improved -Repeat chest x-ray today -Follow up sputum culture -Continue Zithromax DVT prophylaxis at all times Consult Acknowledgment - Thank you for your consult request.
--- NOTE | 2017-10-22 11:39 | RADIOLOGY REPORT ---
EXAMINATION: XR PORTABLE CHEST CLINICAL INFORMATION: Dyspnea and hypoxia. COMPARISON: Chest 10/21/2017. TECHNIQUE: Portable frontal view of the chest was obtained. FINDINGS: Both lungs are fairly well-expanded and clear of acute process. The heart size and pulmonary vascularity is normal. No gross bony abnormality seen IMPRESSION: Unremarkable chest exam. No change from 10/21/2017.
--- NOTE | 2017-10-22 11:55 | PN-Observation ---
Observation Note Observation Note _ I have personally examined MICHEAL CORTEZ. her disposition is uncertain at this time. Before a determination can be made, she requires continued observation for the following reasons SOB. Assessment/Plan Assessment: Mr. Cortez is 57 year old female with PMH of COPD on home oxygen 3L, emphysema, right lung mass stable follow up with Dr. Lopez, partial removal of left lung for complicated pneumonia who presented to ED with CC of dyspnea and hypoxia for 2 days. PROBLEM LIST #acute on chronic hypoxic respiratory failure #copd excerpation #lactic acidosis #atypical chest pain, reproducible #leukocytosis Consindering SOB CXR was repeated: CXR: Unremarkable chest exam. No change from 10/21/2017. SERIAL ROPS AND EKG ruled out ACS lactic acidosis resolved Plan Continue observation in tele for atypical chest pain/ SOB Continue SOULMEDROL 40 BID AZITHROMYCIN LIDOCINE PATCH for chest pain NICTO PATCH NEBS MORPHIN 2 MG FOR SEVERE PAIN NO ASPIRIN FOR NSAIDS ALLERGY Follow Pulm consult CODE FULL DVT LOVONEX DIET REGULAR Problem List: 1. COPD exacerbation Plan: As noted above Discharge Plan Discharge Disposition: Continue obs for another 24hours Subjective Follow-up For: Chest pain SOB Tele-Events Since Last Visit: Sr ST 94-120 Subjective: Patient visited today, was lying in bed comfortably was alert and oriented. Complaint of cough and sputum, as well as palpitation and walking. No swelling or chest pain. No fever or chills, no chest pain, no other events. D-dimer was done and PE was ruled out. Considering no improvement in medical condition we will extend observation for another 24 hours Review of Systems Constitutional: Reports: see HPI. Objective Last 24 Hrs of Vital Signs/I&O Vital Signs Date Time Temp Pulse Resp B/P B/P Pulse O2 O2 Flow FiO2 Mean Ox Delivery Rate 10/22 1624 91 Nasal 4.0L Cannula 10/22 1400 98.2 112 24 140/64 92 Nasal 4.0L Cannula 10/22 1145 95 Nasal 4.0L Cannula 10/22 0800 97 Nasal 4.0L Cannula 10/22 0700 98.0 98 22 138/90 94 10/22 0000 Nasal 4.0L Cannula 10/21 2310 Nasal 4.0L Cannula 10/21 2255 97.8 115 26 144/72 94 Nasal 4.0L Cannula 10/21 1907 98.0 110 22 142/78 93 Nasal 4.0L Cannula Intake & Output 10/22 1600 10/22 0800 10/22 0000 Intake Total 700 700 750 Output Total 500 Balance 200 700 750 Intake, IV 250 700 750 Intake, Oral 450 Output, Urine 500 Patient 180 lb Weight Physical Exam General Appearance: Alert, Oriented X3, Cooperative, No Acute Distress Skin: No Significant Lesion Skin Temp/Moisture Exam: Warm/Dry Sepsis Skin Exam (color): Normal for Ethnicity HEENT: Atraumatic, EOMI, Mucous Membr. moist/pink Cardiovascular: Regular Rate, Normal S1, Normal S2 Lungs: bilateral ronchi in bases Abdomen: Soft, No Tenderness Neurological: Normal Speech Extremities: No Edema Current Medications: Current Medications Sig/Leda Start time Last Medication Dose Route Stop Time Status Admin Acetaminophen 650 MG Q6P PRN 10/21 1844 PO Albuterol Sulfate 3 ML EVERY 4 HRS/AWAKE 10/22 0800 AC 10/22 INH 1621 Aripiprazole 10 MG DAILY 10/22 1000 AC 10/22 PO 1150 Azithromycin 500 MG DAILY@1900 10/21 1900 AC 10/22 Dextrose/Water 250 ML IV 1836 Budesonide/ 2 PUF BID 10/22 1000 AC 10/22 Formoterol Fumarate INH 1151 Enoxaparin Sodium 0 .STK-MED ONE 10/21 193 DC SC Enoxaparin Sodium 40 MG DAILY 10/21 1840 AC 10/22 SC 0929 Fluoxetine HCl 20 MG DAILY 10/22 1000 AC 10/22 PO 1150 Guaifenesin 600 MG Q12 10/22 1000 AC 10/22 PO 0929 Ipratropium [place] 2.5 ML EVERY 4 HRS/AWAKE 10/22 0800 AC 10/22 INH 1621 Lidocaine 1 PAT Q24H 10/21 1845 10/21 EXT 1945 Magnesium Chloride 64 MG BID 10/22 1045 AC 10/22 PO 1150 Methylprednisolone 40 MG Q12 10/21 2200 AC 10/22 IV 0929 Morphine Sulfate 0 .STK-MED ONE 10/21 185 DC .ROUTE Morphine Sulfate 2 MG Q4P PRN 10/21 184 AC 10/22 IV 1329 Nicotine 21 MG Q24 10/22 1000 AC 10/22 TOP 0929 Sodium Chloride 500 ML BOLUS ONE 10/21 1914 DC 10/21 IV 10/21 2013 192 Sodium Chloride 1,000 ML Q10H 10/21 1900 DC 10/21 IV 10/229 2130 Tramadol HCl 50 MG Q6 PRN 10/22 1100 AC 10/22 PO 1836 Last 24 Hrs of Labs/Mics: Laboratory Tests 10/22/17 0450: Lactic Acid 1.7 10/22/17 0450: Anion Gap 13, Estimated GFR > 60, BUN/Creatinine Ratio 35.0 H, Phosphorus 3.6, Magnesium 1.8, CBC w Diff NO MAN DIFF REQ, RBC 4.33, MCV 92.1, MCH 30.3, RDW 13.3, MPV 7.6, Gran % 89.8 H, Lymphocytes % 8.6 L, Monocytes % 1.4 L, Eosinophils % 0, Basophils % 0.2, Absolute Granulocytes 10.0 H, Absolute Lymphocytes 1.0 L, Absolute Monocytes 0.2, Absolute Eosinophils 0, Absolute Basophils 0, PUBS MCHC 32.9 L 10/22/17 0110: Troponin I < 0.01 10/21/17 2300: Lactic Acid Cancelled 10/21/17 2225: Lactic Acid 2.6 H 10/21/17 2030: Lactic Acid 3.2 H, Troponin I < 0.01 Microbiology 10/22 44 LOWER RESP: Respiratory Culture - RES 10/22 44 LOWER RESP: Gram Stain - RES
[2017-10-22 14:00] VITALS: BP 140/64
[2017-10-22 23:06] VITALS: BP 142/76
[2017-10-23 06:22] VITALS: BP 156/84
--- NOTE | 2017-10-23 07:04 | PN- Housestaff ---
See Addendum Subjective Follow-up For: COPD Tele-Events Since Last Visit: Afib, 90-120 Subjective: No overnight events. Her breathing is stable. CP has become a little better. She thinks it's related to coughing. No other issues. Review of Systems Constitutional: Reports: no symptoms. EENTM: Reports: no symptoms. Cardiovascular: Reports: see HPI. Respiratory: Reports: see HPI. Gastrointestinal: Reports: no symptoms. Genitourinary: Reports: no symptoms. Musculoskeletal: Reports: no symptoms. Skin: Reports: no symptoms. Neurological/Psychological: Reports: no symptoms. Hematologic/Endocrine: Reports: no symptoms. Immunologic/Allergic: Reports: no symptoms. Objective Last 24 Hrs of Vital Signs/I&O Vital Signs Date Time Temp Pulse Resp B/P B/P Pulse O2 O2 Flow FiO2 Mean Ox Delivery Rate 10/23 06 98.4 94 20 156/84 94 Nasal 4.0L Cannula 10/23 0000 Nasal 4.0L Cannula 10/22 2356 93 Nasal 4.0L Cannula 10/22 2306 98.0 102 22 142/76 94 Nasal 4.0L Cannula 10/22 2005 95 Nasal 4.0L Cannula 10/22 1624 91 Nasal 4.0L Cannula 10/22 1400 98.2 112 24 140/64 92 Nasal 4.0L Cannula 10/22 1145 95 Nasal 4.0L Cannula 10/22 0800 97 Nasal 4.0L Cannula Intake & Output 10/23 0800 10/23 0000 10/22 1600 Intake Total 200 400 700 Output Total 500 Balance 200 400 200 Intake, IV 250 Intake, Oral 200 400 450 Output, Urine 500 Physical Exam General Appearance: Alert, Oriented X3, Cooperative, No Acute Distress Cardiovascular: irregular Lungs: mild crackles/wheezing Abdomen: Normal Bowel Sounds, Soft, No Tenderness Extremities: No Edema, Normal Pulses, No Tenderness/Swelling Current Medications: Current Medications Sig/Leda Start time Last Medication Dose Route Stop Time Status Admin Acetaminophen 650 MG Q6P PRN 10/21 1845 AC PO Albuterol Sulfate 3 ML EVERY 4 HRS/AWAKE 10/22 0800 AC 10/22 INH 2355 Aripiprazole 10 MG DAILY 10/22 1000 AC 10/22 PO 1150 Azithromycin 500 MG DAILY@1900 10/21 1900 AC 10/22 Dextrose/Water 250 ML IV 1836 Budesonide/ 2 PUF BID 10/22 1000 AC 10/22 Formoterol Fumarate INH 2031 Enoxaparin Sodium 40 MG DAILY 10/21 1840 AC 10/22 SC 0929 Fluoxetine HCl 20 MG DAILY 10/22 1000 AC 10/22 PO 1150 Guaifenesin 600 MG Q12 10/22 1000 AC 10/22 PO 2030 Ipratropium [place] 2.5 ML EVERY 4 HRS/AWAKE 10/22 0800 AC 10/22 INH 2355 Lidocaine 1 PAT Q24H 10/21 1845 AC 10/21 EXT 1945 Magnesium Chloride 64 MG BID 10/22 1045 AC 10/22 PO 2031 Methylprednisolone 40 MG Q12 10/21 2200 AC 10/22 IV 2032 Morphine Sulfate 2 MG Q4P PRN 10/21 1845 AC 10/23 IV 0418 Nicotine 21 MG Q24 10/22 1000 AC 10/22 TOP 0929 Tramadol HCl 50 MG Q6 PRN 10/22 1100 AC 10/23 PO 0151 Assessment/Plan Assessment: Ms. Carrillo is 57 year old female with PMH of COPD on home oxygen 3L, emphysema, right lung mass stable follow up with Dr. Lopez, partial removal of left lung for complicated pneumonia here with COPD exacerbation. Problem list: 1. acute on chronic hypoxic respiratory failure 2. COPD exacerbation 3. lactic acidosis 4. Atypical chest pain 5. leukocytosis #COPD exacerbation: Patient presented with dyspnea and unremarkable chest x-ray. She was started on COPD medications including steroids and azithromycin. She had a repeat chest x-ray yesterday that was consistent with prior exam her breathing has not improved much since admission. Unclear why she has not improved. It does not seem like she has any element of heart failure given the negative BNP and no leg edema. D-dimer was negative. She has an improving leukocytosis and no fevers. Lactic acidosis has resolved. -Appreciate pulmonology recommendations -Continue guaifenesin, budesonide/formoterol, ipratropium, albuterol -Continue azithromycin -prednisone taper -ambulatory sats #Atypical chest pain: Troponins and EKG 3 negative. She thinks is related to her coughing. -Benzotanate -Lidocaine patch #Chronic medical problems: -Continue home magnesium, fluoxetine, aripiprazole, nicotine patch -Pain control with acetaminophen and oxycodone DVT prophylaxis with enoxaparin Regular diet Full code Problem List: 1. COPD Pain Ratin Pain Location: none Pain Goal: Remain pain free Pain Plan: see a/p Tomorrow's Labs & Rationales: none
[2017-10-23 08:25] LABS: ABSOLUTE BASOPHIL COUNT 0 /CUMM (0.0-0.2); ABSOLUTE EOSINOPHIL COUNT 0 /CUMM (0.0-0.7); ABSOLUTE GRANULOCYTE CT 10.5 /CUMM (1.4-6.5); ABSOLUTE LYMPH COUNT 1.4 /CUMM (1.2-3.4); ABSOLUTE MONOCYTE COUNT 0.4 /CUMM (0.10-0.60); BASOPHIL % 0 % (0.0-2.0); EOSINOPHIL % 0 % (0-5); HEMATOCRIT 38.5 % (37-47); MEAN CORPUSCULAR HGB CONC 33.7 G/DL (33.0-37.0); MEAN CORPUSCULAR VOLUME 92.1 FL (81.0-99.0); MEAN PLATELET VOLUME 7.8 FL (7.4-10.4); PLATELET COUNT 187 /CUMM (130-400); RBC DISTRIBUTION WIDTH 13.3 % (11.5-14.5); RED BLOOD CELL CT 4.18 /CUMM (4.20-5.40)
[2017-10-23 09:22] LABS: WHITE BLOOD CELL COUNT 12.4 /CUMM (4.8-10.8)
[2017-10-23 09:30] VITALS: BP 152/88
--- NOTE | 2017-10-23 10:13 | PN- Pulmonary ---
Subjective HPI/Critical Care Issues: Patient seen and examined this morning. No overnight events overall feels better. Objective Current Medications: Current Medications Sig/Leda Start time Last Medication Dose Route Stop Time Status Admin Acetaminophen 975 MG Q6PRN PRN 10/23 0815 AC PO Acetaminophen 650 MG Q6P PRN 10/21 1845 AC PO Albuterol Sulfate 3 ML EVERY 4 HRS/AWAKE 10/22 0800 AC 10/23 INH 0752 Aripiprazole 10 MG DAILY 10/22 1000 AC 10/23 PO 0924 Azithromycin 500 MG DAILY@1900 10/21 1900 AC 10/22 Dextrose/Water 250 ML IV 1836 Benzonatate 100 MG TID PRN 10/23 0715 AC 10/23 PO 0851 Budesonide/ 2 PUF BID 10/22 1000 AC 10/23 Formoterol Fumarate INH 0924 Enoxaparin Sodium 40 MG DAILY 10/21 1840 AC 10/23 SC 0924 Fluoxetine HCl 20 MG DAILY 10/22 1000 AC 10/23 PO 0923 Guaifenesin 600 MG Q12 10/22 1000 AC 10/23 PO 0924 Ipratropium [place] 2.5 ML EVERY 4 HRS/AWAKE 10/22 0800 AC 10/23 INH 0752 Lidocaine 1 PAT Q24H 10/21 1845 AC 10/21 EXT 1945 Magnesium Chloride 64 MG BID 10/22 1045 AC 10/23 PO 0924 Methylprednisolone 40 MG Q12 10/21 2200 AC 10/23 IV 0924 Morphine Sulfate 2 MG Q4P PRN 10/21 1845 DC 10/23 IV 0418 Nicotine 21 MG Q24 10/22 1000 AC 10/23 TOP 0924 Oxycodone HCl 5 MG Q6 PRN 10/23 0815 AC 10/23 PO 0852 Tramadol HCl 50 MG Q6 PRN 10/22 1100 DC 10/23 PO 0151 Vital Signs & I&O Last 24 Hrs of Vitals and I&O: Vital Signs Date Time Temp Pulse Resp B/P B/P Pulse O2 O2 Flow FiO2 Mean Ox Delivery Rate 10/23 0940 20 92 Nasal 4.0L Cannula 10/23 0930 20 152/88 94 Nasal 4.0L Cannula 10/23 0807 93 Nasal 4.0L Cannula 10/23 06 98.4 94 20 156/84 94 Nasal 4.0L Cannula 10/23 0000 Nasal 4.0L Cannula 10/22 2356 93 Nasal 4.0L Cannula 10/22 2306 98.0 102 22 142/76 94 Nasal 4.0L Cannula 10/22 2005 95 Nasal 4.0L Cannula 10/22 1624 91 Nasal 4.0L Cannula 10/22 1400 98.2 112 24 140/64 92 Nasal 4.0L Cannula 10/22 1145 95 Nasal 4.0L Cannula Intake & Output 10/23 1600 10/23 0800 10/23 0000 Intake Total 200 400 Output Total Balance 200 400 Intake, Oral 200 400 Exam Other Physical Findings: Generally - Awake, alert and comfortable without distress Head and neck - normocephalic, atraumatic, EOMI grossly intact Cardiovascular - S1, S2 Lungs -scattered rhonchi and crackles of the right base Abdomen - Bowel sounds positive, soft, non-tender Extremities - without edema Results Last 24 Hrs of Lab Results: Laboratory Tests 10/23/17 0635: Anion Gap 14, Estimated GFR > 60, BUN/Creatinine Ratio 34.0 H, Phosphorus 4.0, Magnesium 1.9, CBC w Diff NO MAN DIFF REQ, RBC 4.18 L, MCV 92.1, MCH 31.0, RDW 13.3, MPV 7.8, Gran % 85.0 H, Lymphocytes % 11.7 L, Monocytes % 3.3, Eosinophils % 0, Basophils % 0, Absolute Granulocytes 10.5 H, Absolute Lymphocytes 1.4, Absolute Monocytes 0.4, Absolute Eosinophils 0, Absolute Basophils 0, PUBS MCHC 33.7 Impression/Plan Impression/Plan Impression/Plan: Impression 57-year-old woman * Acute exacerbation of COPD secondary to tracheobronchitis * Chest discomfort has resolved * History of bipolar disorder Plan -pain control -TRC/nebs -Reduce FiO2 as tolerated to goal of 92% and above -Continue Zithromax -dc solumedrol - begin prednisone 60x3, 50x3, 40x3, 30x3, 20x3, 10x3 DVT prophylaxis at all times
[2017-10-23] MEDS ORDERED: PREDNISONE10 M2 PO ×3 (11:21→13:31)
--- NOTE | 2017-10-23 11:25 | Patient Discharge Instructions ---
Discharge Instructions General Discharge Information You were seen/treated for: COPD exacerbation Watch for these problems: Chest pain, shortness of breath, fever Special Instructions: Please take all medications as directed. Please follow-up with primary care. Please follow-up with pulmonology. Diet Continue normal diet: Yes Activity Full Activity/No Limits: Yes Acute Coronary Syndrome Inclusion Criteria At DC or during hospital stay patient has or had the following: ACS DIAGNOSIS No Discharge Core Measures Meds if any: Prescribed or Continued at Discharge Meds if any: NOT Prescribed or Continued at Discharge Congestive Heart Failure Inclusion Criteria At DC or during hospital stay patient has or had the following: CHF DIAGNOSIS No Discharge Core Measures Meds if any: Prescribed or Continued at Discharge Meds if any: NOT Prescribed or Continued at Discharge Cerebrovascular accident Inclusion Criteria At DC or during hospital stay patient has or had the following: CVA/TIA Diagnosis No Discharge Core Measures Meds if any: Prescribed or Continued at Discharge Meds if any: NOT Prescribed or Continued at Discharge Venous thromboembolism Inclusion Criteria VTE Diagnosis No VTE Type NONE VTE Confirmed by (Test) NONE Discharge Core Measures - Per Current guidelines, there needs to be overlap - treatment for the first 5 days of Warfarin therapy. - If discharged on Warfarin prior to 5 days of - overlap therapy, the patient will need to be - assessed for post discharge needs including - *Post discharge parental anticoagulation - *Warfarin and/or parental anticoagulation education - *Follow up date to check INR post discharge At least 5 days overlap therapy as Inpatient No Meds if any: Prescribed or Continued at Discharge Note: Overlap Therapy is Warfarin and Anticoagulant Meds if any: NOT Prescribed or Continued at Discharge
[2017-10-23] MEDS ORDERED: IPRAT-ALBUT 0.5-3 ML INH (13:43)
[2017-10-23] MEDS ORDERED: SPIRIVA18 MCG INH (14:02)
[2017-10-23] MEDS ORDERED: ALBUTEROL1.25 MG/1 INH/SOL (14:02)
[2017-10-23] MEDS ORDERED: OXYCODONE HCL5 M2 PO (14:11)
== END 2017-10-23 14:36 ==
LOC: ERH 12:44 → ERHI 16:16 → 1NO 16:16 → ENRESERV 19:36 → ENTRNSPT 19:38 → EDTRNSPT 19:41 → EDTRNSPTSTS 19:41 → 1NO 19:56 → CMPTRNSPT 20:09 → 1NO 10-23 10:44 → ENPENDDIS 10-23 11:23 → 1NO 10-23 12:31
PROVIDERS: Physician Assistant; Radiology Vascular & Interventional Radiology; Student in an Organized Health Care Education/Training Program
DX: J44.1 Chronic obstructive pulmonary disease with (acute) exacerbation (principal); J96.21 Acute and chronic respiratory failure with hypoxia; R07.89 Other chest pain; R91.8 Other nonspecific abnormal finding of lung field; E87.2 Acidosis; D72.829 Elevated white blood cell count, unspecified
CPT/HCPCS: 1263; 1328; 1425; 1530; 1748; 36415; 71045; 82436; 87040; 87070; 87804; 87804-59; 93005; 93010; 96361; 96372; 96374; 96375; 96376; G0378; J0401; J0456; J1650; J2920; J2930; J3490; J7040; J7060

== ENCOUNTER 2018-05-02 21:31 | Emergency (ER) | payer OTHER ==
[~2018-05-02] VITALS: Ht 165.1 cm; Wt 81.6 kg
[~2018-05-02 21:31] MED LIST changes: +ALBUTEROL1.25 MG/1 INH/SOL; +IPRAT-ALBUT 0.5-3 ML INH; +OXYCODONE HCL5 M2 PO; +TUSSIONEX PENN115 ML PO; +ZITHROMAX250 M2 PO
[2018-05-02] MEDS ORDERED: KEFLEX500 M1 PO (23:30)
[2018-05-02] MEDS ORDERED: PERCOCET 5-3251 EACH PO ×2 (23:30→23:32)
--- NOTE | 2018-05-02 23:32 | ED UPPER/LOWER EXTREMITY COMPL ---
History of Present Illness General Chief Complaint: Upper Extremity Problem Stated Complaint: R ELBOW SWELLING Source: patient, family Exam Limitations: no limitations Vital Signs & Intake/Output Vital Signs & Intake/Output Vital Signs Date Time Temp Pulse Resp B/P B/P Pulse O2 O2 Flow FiO2 Mean Ox Delivery Rate 05/02 2350 94 18 140/78 96 Room Air 05/02 2249 Room Air 05/02 2152 98.6 102 20 144/83 95 Room Air ED Intake and Output 05/03 0000 05/02 1200 Intake Total 0 Output Total Balance 0 Intake, Oral 0 Patient 180 lb Weight Weight Reported by Patient Measurement Method Allergies Coded Allergies: NSAIDS (Non-Steroidal Anti-Inflamma (Severe, ANAPHYLAXIS 03/23/17) ibuprofen (Severe, ANAPHYLAXIS 03/23/17) Penicillins (Intermediate, RASH 03/23/17) codeine (Intermediate, RASH 12/15/16) gabapentin (Intermediate, SWOLLEN FEET 03/23/17) ketorolac (Intermediate, RASH\HIVES 03/23/17) Reconcile Medications Albuterol Sulfate 1.25 MG/3 ML VIAL.NEB 1 Vial INH/MAGDALENA Q4-6 PRN Shortness of breath Aripiprazole (Abilify) 10 MG TABLET 1 TAB PO QAM MENTAL HEALTH (Reported) Azithromycin (Zithromax) 250 MG TABLET 1 DP PO AD BRONCHITIS 2 the first day followed by 1 for days 2-5 Cephalexin (Keflex) 500 MG CAPSULE 1 CAP PO TID BURSITIS Fluoxetine HCl (Prozac) 20 MG CAPSULE 1 CAP PO QAM MENTAL HEALTH (Reported) Fluticasone/Salmeterol (Advair 250-50 Diskus) 250 MCG-50 MCG/DOSE BLST.W.DEV 1 PUF INH BID COPD/EMPHYSEMA (Reported) Hydrocodone/Chlorphen P-Stirex (Tussionex Pennkinetic Susp) 10 MG-8 MG/5 ML AALIYAH.ER.12H 4-10 ML PO Q12 PRN COUGH Oxycodone HCl 5 MG CAPSULE 1 CAP PO BIDP PRN Severe Pain Oxycodone HCl/Acetaminophen (Percocet 5-325 MG Tablet) 5 MG-325 MG TABLET 1 TAB PO BID PRN PAIN Prednisone 10 MG TABLET 1 TAB PO BID BRONCHITIS 6 TABS DAYS 1-3 4 TABS DAYS 4-6 2 TABS DAYS 7-9 1 TAB DAYS 10-12 Prednisone 10 MG TABLET 1 TAB PO DAILY Steroid Taper 10/24/17-10/26/17 - 60mg once daily 10/27/17-10/29/17 - 50mg once daily 10/30/17-11/01/17 - 40mg once daily 11/02/17-11/04/17 - 30mg once daily 11/05/17-11/07/17 - 20mg once daily 11/08/17-11/10/17 - 10mg once daily, then stop Tiotropium [place] (Spiriva) 18 MCG CAP.W.DEV 1 CAP INH DAILY Breathing Triage Note: PT HERE WITH C/O RIGHT ELBOW PAIN AND SWELLING THAT BEGAN TODAY. PEER PT IT HAS GOTTEN WORSE THE DAY PROGRESSED. PT DENIES ANY TRAUMA OR INSECT BITE TO AREA. PT REPORTS THAT THE SWELLING IS MOVING DOWN ARM AND INTO FINGERS. PT REPORTS SHE CAN MOVE ARM. PT STATES THAT SHE TOOK 3 EXTRA STRENGHT TYLENOL AND PUT ICE ON IT. Triage Nurses Notes Reviewed? yes Onset: Gradual Duration: hour(s): Timing: single episode today Severity: moderate Pain/Injury Location: Right: Elbow. HPI: 57-year-old female presents to emergency department complaining of pain and swelling to right posterior elbow beginning a few hours ago. Patient states that pain and swelling is now radiating down right forearm and she feels as though her hand is swollen as well. Patient reports redness to the area. There was no trauma or inciting event prior to onset of her symptoms. (Jenna STEVEN,Lizzie Austin) Past History Travel History Traveled to [place] past 21 day No Medical History Any Pertinent Medical History? 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 History of MRSA: No History of VRE: No History of CDIFF: No Surgical History Surgical History: appendectomy, hysterectomy, partial removal of left lung appendicectomy Schwanoma(L4,5) removal in 1992 Psychosocial History Who do you live with Significant Other Services at Home None What is your primary language Yi Tobacco Use: Current Daily Use Daily Tobacco Use Amount/Type: => 5 Cigarettes daily ETOH Use: denies use Illicit Drug Use: denies illicit drug use Family History Family History, If Any: MOTHER FHx: bipolar disorder FATHER FHx: prostate cancer SISTER FH: diabetes mellitus GRANDMOTHER FHx: ovarian cancer Hx Contributory? No (Lizzie Martinez) Review of Systems Review of Systems Constitutional: Reports: no symptoms. EENTM: Reports: no symptoms. Respiratory: Reports: no symptoms. Cardiovascular: Reports: no symptoms. Gastrointestinal/Abdominal: Reports: no symptoms. Genitourinary: Reports: no symptoms. Musculoskeletal: Reports: see HPI. Skin: Reports: see HPI. Neurological/Psychological: Reports: no symptoms. Hematologic/Endocrine: Reports: no symptoms. Immunological: Reports: no symptoms. All Other Systems: Reviewed and Negative (Lizzie Martienz) Physical Exam Physical Exam General Appearance: well developed/nourished, no apparent distress, alert, awake Head: atraumatic, normal appearance Eyes: Bilateral: normal appearance. Ears, Nose, Throat: hearing grossly normal Neck: normal inspection, supple, full range of motion Cardiovascular/Respiratory: normal peripheral pulses, no respiratory distress Peripheral Pulses: 2+ radial (R) Back: normal inspection, normal range of motion Shoulder Left: normal range of motion, normal inspection Shoulder Right: normal range of motion, normal inspection Elbow Left: normal range of motion, normal inspection Elbow Right: erythema and swelling to posterior elbow with mild tenderness + goose egg Hand Left: normal inspection, normal range of motion Hand Right: mild swelling to hand and forearm, no induration Neurologic/Tendon: normal sensation, normal motor functions, normal tendon functions Skin: erythema as mentioned above (Lizzie Martinez) Progress Differential Diagnosis: cellulitis, contusion, fracture, sprain, tendon injury, bursitis Plan of Care: Orders Procedure Date/time Status SYNOVIAL FLUID CELL COUNT 05/02 2334 Active Durable Medical Equipment 05/02 2329 Active CULTURE,BODY FLUID 05/02 2325 Active Laboratory Tests 05/02/18 233: Fluid WBC Pending, Fld Total RBCs Counted Pending Microbiology 05/02 2334 BODY FLUID: Body Fluid Culture - RECD 05/02 2334 BODY FLUID: Gram Stain - RECD Symptoms and physical exam are consistent with bursitis. Bursitis drained here in the emergency Department. Patient started on antibiotics and medication for pain. She was given orthopedic follow-up. Patient placed in shoulder immobilizer. The patient agrees with the plan of care. Dr. Copeland agrees with this plan. Comments: Procedure Note: Right bursitis drainage: Area cleaned with betadine. 25g needle used to drain approx 5cc of serosanguinous fluid. Fluid sent to lab for analysis. Patient tolerated procedure well. (Lizzie Martinez) Departure Departure Disposition: HOME OR SELF CARE Condition: Stable Clinical Impression Primary Impression: Bursitis Qualifiers: Bursitis location: elbow Laterality: right Referrals: Patient Has No Primary Care Dr (PCP/Family) Additional Instructions: Take full course of antibiotics. Take Percocet as prescribed as needed for pain , do not drive or drink alcohol with taking this medication. Follow-up with orthopedic doctor, call tomorrow to make an appointment. If worsening symptoms or concerns please return to emergency department. Please note that there might be incidental findings in your evaluation that are unrelated to the current emergency department visit. Please notify your primary care doctor about this emergency department visit in order to obtain and review all of the testing performed so that these incidental findings can be monitored as needed. If you had an x-ray performed, please understand that some fractures may not be seen on the initial set of x-rays. If your symptoms persist you might need a repeat set of x-rays to check for such a fracture. If you had a laceration evaluated, please understand that foreign bodies such as glass or wood may not be visible to the naked eye or on plain x-rays. If the wound becomes red, swollen, increasingly more painful or if there is any drainage from the wound, please have it reevaluated by a physician for the possibility of a retained foreign body. If you're unable to follow up as outlined in the discharge instructions please return to the emergency department. Thank you for choosing the [facility] Emergency Department for your care. It was a pleasure to serve you today. Departure Forms: Customer Survey General Discharge Information Prescriptions: Current Visit Scripts Cephalexin (Keflex) 1 CAP PO TID #30 CAP Oxycodone HCl/Acetaminophen (Percocet 5-325 MG Tablet) 1 TAB PO BID PRN PAIN #10 TAB (Lizzie Martinez) PA/GRAIN OPERATOR Co-Sign Statement Statement: ED Attending supervision documentation- I saw and evaluated the patient. I have also reviewed all the pertinent lab results and diagnostic results. I agree with the findings and the plan of care as documented in the PA's/GRAIN OPERATOR's documentation. x I have reviewed the ED Record and agree with the PA's/GRAIN OPERATOR's documentation. [] Additions or exceptions (if any) to the PAs/GRAIN OPERATOR's note and plan are summarized below: [] (Min KEYS,aD)
[2018-05-02 23:50] VITALS: BP 140/78
== END 2018-05-02 23:53 ==
LOC: ERH 21:31
DX: M70.31 Other bursitis of elbow, right elbow (principal)
CPT/HCPCS: 87075

== ENCOUNTER 2018-05-05 13:07 | Inpatient (IN) | payer OTHER ==
[~2018-05-05] VITALS: Ht 165.1 cm; Wt 80.8 kg
[~2018-05-05 13:07] MED LIST changes: +KEFLEX500 M1 PO
[2018-05-05 13:31] LABS: ABSOLUTE BASOPHIL COUNT 0.1 /CUMM (0.0-0.2); ABSOLUTE EOSINOPHIL COUNT 0.2 /CUMM (0.0-0.7); ABSOLUTE GRANULOCYTE CT 11.4 /CUMM (1.4-6.5); ABSOLUTE LYMPH COUNT 2.8 /CUMM (1.2-3.4); ABSOLUTE MONOCYTE COUNT 0.8 /CUMM (0.10-0.60); BASOPHIL % 0.9 % (0.0-2.0); EOSINOPHIL % 1.2 % (0-5); GRANULOCYTE % 74.5 % (42.2-75.2); HEMATOCRIT 45.2 % (37-47); MEAN CORPUSCULAR HGB 30.8 PG (27.0-31.0); MEAN CORPUSCULAR VOLUME 90.7 FL (81.0-99.0); MEAN PLATELET VOLUME 8.1 FL (7.4-10.4); PLATELET COUNT 228 /CUMM (130-400); RBC DISTRIBUTION WIDTH 13.9 % (11.5-14.5); RED BLOOD CELL CT 4.99 /CUMM (4.20-5.40); WHITE BLOOD CELL COUNT 15.3 /CUMM (4.8-10.8)
--- NOTE | 2018-05-05 15:39 | ED UPPER/LOWER EXTREMITY COMPL ---
History of Present Illness General Chief Complaint: Skin Rash/ Abcess Stated Complaint: CELLULITIS Source: patient Exam Limitations: no limitations Vital Signs & Intake/Output Vital Signs & Intake/Output Vital Signs Date Time Temp Pulse Resp B/P B/P Pulse O2 O2 Flow FiO2 Mean Ox Delivery Rate 05/05 1549 Room Air 05/05 1548 86 18 127/63 93 Room Air 05/05 1311 98.4 112 16 143/85 94 Room Air Allergies Coded Allergies: NSAIDS (Non-Steroidal Anti-Inflamma (Severe, ANAPHYLAXIS 03/23/17) ibuprofen (Severe, ANAPHYLAXIS 03/23/17) Penicillins (Intermediate, RASH 03/23/17) codeine (Intermediate, RASH 12/15/16) gabapentin (Intermediate, SWOLLEN FEET 03/23/17) ketorolac (Intermediate, RASH\HIVES 03/23/17) Triage Note: PT HERE 3 DAYS AGO FOR REDNESS AND SWELLING TO RIGHT ELBOW. HAD AREA DRAINED AT THAT TIME. TAKING PO KEFLEX AND PERCOCET W/O RELIEF. REDNESS, WARMTH AND SWELLING WORSENING. Triage Nurses Notes Reviewed? yes Onset: Abrupt Duration: day(s):, constant Timing: recent history Severity: moderate, severe Pain/Injury Location: Right: Elbow, Forearm. No Modifying Factors: none HPI: 57-year-old female comes into the emergency room for further evaluation of redness to right arm spreading. Patient was seen here couple days ago and prescribed Keflex. She reports that the redness has gotten progressively worse and she has increased pain and swelling to the arm. Associated chills. Comes in for further evaluation. (Jovany STEVEN,Juan Ramon) Reconcile Medications Albuterol Sulfate (Proair Hfa) 90 MCG HFA.AER.AD 2 PUF INH AD PRN RESP. ( Reported) Albuterol Sulfate 1.25 MG/3 ML VIAL.NEB 1 Vial INH/MAGDALENA Q4-6 PRN Shortness of breath Aripiprazole (Abilify) 10 MG TABLET 1 TAB PO QAM MENTAL HEALTH (Reported) Cephalexin (Keflex) 500 MG CAPSULE 1 CAP PO TID BURSITIS Fluoxetine HCl (Prozac) 20 MG CAPSULE 1 CAP PO QAM MENTAL HEALTH (Reported) Fluticasone/Salmeterol (Advair 250-50 Diskus) 250 MCG-50 MCG/DOSE BLST.W.DEV 1 PUF INH BID COPD/EMPHYSEMA (Reported) Oxycodone HCl/Acetaminophen (Percocet 5-325 MG Tablet) 5 MG-325 MG TABLET 1 TAB PO BID PRN PAIN Tiotropium [place] (Spiriva) 18 MCG CAP.W.DEV 1 CAP INH DAILY Breathing (Jose Francisco MONTOYAFernando) Past History Travel History Traveled to [place] past 21 day No Medical History Any Pertinent Medical History? 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) LT UPPER LOBECTOMY Gastrointestinal: NONE Hepatic: NONE Renal: KIDNEY STONES Musculoskeletal: NONE Psychiatric: NONE Endocrine: NONE Blood Disorders: NONE Cancer(s): NONE COMPRESS TRUCKER/Reproductive: NONE History of MRSA: No History of VRE: No History of CDIFF: No Surgical History Surgical History: appendectomy, hysterectomy, partial removal of left lung appendicectomy Schwanoma(L4,5) removal in 1992 Psychosocial History Who do you live with Significant Other Services at Home None What is your primary language Vietnamese Tobacco Use: Current Daily Use Daily Tobacco Use Amount/Type: => 5 Cigarettes daily Family History Family History, If Any: MOTHER FHx: bipolar disorder FATHER FHx: prostate cancer SISTER FH: diabetes mellitus GRANDMOTHER FHx: ovarian cancer Hx Contributory? No (Juan Ramon Vasquez) Review of Systems Review of Systems Constitutional: Reports: no symptoms. EENTM: Reports: no symptoms. Respiratory: Reports: no symptoms. Cardiovascular: Reports: no symptoms. Gastrointestinal/Abdominal: Reports: no symptoms. Genitourinary: Reports: no symptoms. Musculoskeletal: Reports: see HPI. Skin: Reports: see HPI. Neurological/Psychological: Reports: no symptoms. Hematologic/Endocrine: Reports: no symptoms. Immunological: Reports: no symptoms. All Other Systems: Reviewed and Negative (Juan Ramon Vasquez) Physical Exam Physical Exam General Appearance: well developed/nourished, mild distress Head: atraumatic Eyes: Bilateral: normal appearance. 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 intact, Neurologic/Tendon: normal sensation, normal motor functions, normal tendon functions, responds to pain, no evidence tendon injury, no pulse deficit Skin: intact, normal color, warm/dry (Juan Ramon Vasquez) Progress Differential Diagnosis: cellulitis, contusion, DVT, gout, septic arthritis, sprain, tendon injury Plan of Care: Orders Procedure Date/time Status BLOOD CULTURE 05/05 1313 Active WESTERGREN SED RATE 05/05 1313 Complete C-REACTIVE PROTEIN 05/05 1313 Complete CBC WITHOUT DIFFERENTIAL 05/05 1313 Complete BASIC METABOLIC PANEL 05/05 1313 Complete Current Medications Sig/Leda Start time Last Medication Dose Stop Time Status Admin Vancomycin HCl 1,000 MG ONCE ONE 05/05 1530 AC 05/05 Sodium Chloride 250 ML 05/05 1629 1548 (Normal Saline 0.9%) Laboratory Tests 05/05/18 1320: Anion Gap 10, Estimated GFR > 60, BUN/Creatinine Ratio 40.0 H, Glucose 132 H, Calcium 10.1, C-Reactive Prot, Quant 4.2 H, CBC w Diff NO MAN DIFF REQ, RBC 4.99, MCV 90.7, MCH 30.8, MCHC 34.0, RDW 13.9, MPV 8.1, Gran % 74.5, Lymphocytes % 18.4 L, Monocytes % 5.0, Eosinophils % 1.2, Basophils % 0.9, Absolute Granulocytes 11.4 H, Absolute Lymphocytes 2.8, Absolute Monocytes 0.8 H, Absolute Eosinophils 0.2, Absolute Basophils 0.1, ESR Westergren 15 Microbiology 05/05 1320 BLOOD: Blood Culture - RECD 05/05 1310 BLOOD: Blood Culture - RECD (Juan Ramon Vasquez) Departure Departure Disposition: STILL A PATIENT Condition: Stable Clinical Impression Primary Impression: Cellulitis of right arm Referrals: Patient Has No Primary Care Dr (PCP/Family) Departure Forms: Customer Survey General Discharge Information Admission Note Spoke With: Marcelina Garcia MD Documentation of Exam: Documentation of any treatments & extenuating circumstances including Concerns Regarding Discharge (functional status, medication knowledge or non-compliance, living conditions, etc.) that warrant an admission rather than observation: Patient will require IV antibiotics. Patient has failed outpatient treatment with oral antibiotics. Wound care consultation. Elevated white blood cell count. Medically not safe for discharge. (Juan Ramon Vasquez) PA/SALES REPRESENTATIVE UNIFORMS Co-Sign Statement Statement: ED Attending supervision documentation- [] I saw and evaluated the patient. I have also reviewed all the pertinent lab results and diagnostic results. I agree with the findings and the plan of care as documented in the PA's/SALES REPRESENTATIVE UNIFORMS's documentation. [X] I have reviewed the ED Record and agree with the PA's/SALES REPRESENTATIVE UNIFORMS's documentation. [] Additions or exceptions (if any) to the PAs/SALES REPRESENTATIVE UNIFORMS's note and plan are summarized below: [] (Fernando Felton DO) Critical Care Note Critical Care Note Critical Care Time: 30-74 min (35) (Juan Ramon Vasquez)
[2018-05-05] MEDS ORDERED: PROAIR HFA8.5 GM INH (16:21)
--- NOTE | 2018-05-05 16:39 | History & Physical ---
Zee Webb 05/05/18 4879: General Information and HPI History of Present Illness: Isaiah Carrillo is a 57 YO female with a PMHx. significant for COPD, right lung mass stable and partial removal of left lung for a complicated pneumonia followed by Dr. Lopez presents to the ED today with "elbow pain and swelling." Patient reports that three days prior she developed redness in her right elbow that became painful. Patient had presented to the ED during that time and was discharged on Bactrim. Patient notes afterwards that her elbow condition worsened as she began to see red streaks on her arm. Patient reports swelling, redness, and warmth in the elbow region. Patient denies any history of trauma or tick bites to the affected area. Patient otherwise denies any other symptoms of fevers, chills, fatigue, muscle/joint pain, and shortness of breath. Allergies/Medications Allergies: Coded Allergies: NSAIDS (Non-Steroidal Anti-Inflamma (Severe, ANAPHYLAXIS 03/23/17) ibuprofen (Severe, ANAPHYLAXIS 03/23/17) Penicillins (Intermediate, RASH 03/23/17) codeine (Intermediate, RASH 12/15/16) gabapentin (Intermediate, SWOLLEN FEET 03/23/17) ketorolac (Intermediate, RASH\\HIVES 03/23/17) Past History Travel History Traveled to [place] past 21 day No Medical History Neurological: NONE EENT: NONE Cardiovascular: NONE Respiratory: COPD, emphysema, MASS (IN R LUNG) LT UPPER LOBECTOMY Gastrointestinal: NONE Hepatic: NONE Renal: KIDNEY STONES Musculoskeletal: NONE Psychiatric: NONE Endocrine: NONE Blood Disorders: NONE Cancer(s): NONE COSTUMER/Reproductive: NONE History of MRSA: No History of VRE: No History of CDIFF: No Surgical History Surgical History: appendectomy, hysterectomy, partial removal of left lung appendicectomy Schwanoma(L4,5) removal in 1992 Past Family/Social History Family History Relations & Conditions if any MOTHER FHx: bipolar disorder FATHER FHx: prostate cancer SISTER FH: diabetes mellitus GRANDMOTHER FHx: ovarian cancer Psychosocial History Who Do You Live With? boyfriend and his son Services at Home: None Primary Language: [place]se Living Will? no Functional Ability ADLs Independent: dressing, eating, toileting, bathing. Ambulation: independent IADLs Independent: shopping, housework, finances, food prep, telephone, transportation. Review of Systems Review of Systems Constitutional: Denies: chills, fever, malaise. Cardiovascular: Denies: chest pain, palpitations. Respiratory: Denies: cough, short of breath. GI: Denies: abdominal pain, diarrhea, nausea, vomiting. Musculoskeletal: Reports: joint swelling. Denies: back pain. Skin: Reports: erythema (right elbow), lesions. Exam & Diagnostic Data Last 24 Hrs of Vital Signs/I&O Vital Signs Date Time Temp Pulse Resp B/P B/P Pulse O2 O2 Flow FiO2 Mean Ox Delivery Rate 05/06 0602 97.9 93 20 134/82 90 / 2216 97.5 90 18 154/74 89 Room Air 05/05 2200 89 05/05 2120 98.0 82 20 36/88 94 Room Air 05/05 1914 97.9 86 20 142/77 95 Room Air 05/05 1549 Room Air 05/05 1548 86 18 127/63 93 Room Air 05/05 1311 98.4 112 16 143/85 94 Room Air Intake & Output 05/06 0800 05/06 0000 05/05 1600 Intake Total Output Total Balance Patient 179 lb 180 lb Weight Weight Bed scale Reported by Patient Measurement Method Physical Exam General Appearance Alert, Oriented X3, Cooperative, No Acute Distress Skin right elbow swelling and erythema noted Neck Supple, No JVD Cardiovascular Regular Rate, Normal S1, Normal S2 Lungs Clear to Auscultation, Normal Air Movement Abdomen Soft, No Tenderness Neurological Normal Speech Extremities Normal Pulses Assessment/Plan Assessment: Elbow X-Ray - Impression: Nonspecific soft tissue prominence along the posterior elbow. Diagnostic considerations include olecranon bursitis or cellulitis. Pertinent Labs - WBC 15.3 CRP 4.2 Etiology in this case with a history of right elbow erythema, swelling, and warmth with subsequent drainage and trial of antibiotic therapy without improvement is likely related to a cellulitis infection with associated bursitis. Other differentials include abscess and lymphangitis. #Cellulitis, Right elbow - Admit to general medicine for monitoring and assessment of vitals - Antibiotic therapy via Vancomycin IV q12h - Follow CBC in the AM - Acetaminophen 650 mg q6p, Percocet 1 tab q6p, Morphine IV 4 mg q4p - Ultrasound right elbow to r/o any other underlying process - Consult ortho - Pain management consultation #Home medications -Continue home medications DVT PPx. FC As Ranked By This Provider Problem List: 1. Cellulitis of right arm Core Measures/Misc (06/18) Acute Coronary Syndrome ACS Diagnosis: No Congestive Heart Failure Congestive Heart Failure Diagnosis No Cerebrovascular Accident CVA/TIA Diagnosis: No VTE (View Protocol) VTE Risk Factors Acute Medical Illness No Mechanical VTE Prophylaxis d/t N/A MechProphylax Ordered No VTE Pharm Prophylaxis d/t NA PharmProphylax ordered Sepsis (View protocol) Sepsis Present: No If YES complete Sepsis Event Note If YES complete Sepsis Event Note Rohith Ervin MD 05/05/18 1640: General Information and HPI Allergies/Medications Home Med list Albuterol Sulfate (Proair Hfa) 90 MCG HFA.AER.AD 2 PUF INH AD PRN RESP. ( Reported) Albuterol Sulfate 1.25 MG/3 ML VIAL.NEB 1 Vial INH/MAGDALENA Q4-6 PRN Shortness of breath Aripiprazole (Abilify) 10 MG TABLET 1 TAB PO QAM MENTAL HEALTH (Reported) Fluoxetine HCl (Prozac) 20 MG CAPSULE 1 CAP PO QAM MENTAL HEALTH (Reported) Fluticasone/Salmeterol (Advair 250-50 Diskus) 250 MCG-50 MCG/DOSE BLST.W.DEV 1 PUF INH BID COPD/EMPHYSEMA (Reported) Tiotropium [place] (Spiriva) 18 MCG CAP.W.DEV 1 CAP INH DAILY Breathing Core Measures/Misc (06/18) Sepsis (View protocol) If YES complete Sepsis Event Note If YES complete Sepsis Event Note Resident Review Statement Resident Statement: examined this patient, discussed with culinary intern, agreed with culinary intern, discussed with family, reviewed EMR data (avail), discussed with nursing , discussed with case mgmt, reviewed images, amended to note Other Findings: 57-year-old female with past medical history of COPD, right lung mass status post partial left lung resection (found to be complicated PNA and not a tumor), is here after worsening of right elbow skin lesion. The patient was in the ED 3 days ago, with complaints of right elbow pain/redness/swelling which had started suddenly, without any trauma/insect bite/trigger, and was discharged on oral antibiotic. Her condition did not get any better, and see mentioned that she started seeing red streaks in her arm, which made her come back to the ED. In the ED, she was given IV vancomycin, and pain medications, and she feels much better now. Labs and vitals as mentioned above. She is being admitted in the general medical floor for management of following issues: #Right elbow cellulitis, to r/o abscess Her history, clinical presentation is suggestive of right elbow cellulitis, but there is swelling, and some degree of fluctuance, which hints towards possible underlying abscess. She was able to flex her elbow to touch left shoulder with her fingertips thus suggesting clinically that the joint might not be involved at this stage. However to confirm the diagnosis we need imaging, and thus x-ray and ultrasound of the right elbow has been ordered, and orthopedic consultation placed to see if this needs further drainages and other treatment. For now, she is being treated with IV vancomycin pending culture results. Pain management ordered as discussed with the patient, given her remote history of opiate dependance. #We are continuing her home medications otherwise. #Diet: Heart healthy diet #DVT prophylaxis subcutaneous heparin, given the possibility that she might require drainage/surgical intervention/ ALPS #CODE STATUS: Full code Jose KEYSMarcelina 05/05/18 1809: Core Measures/Misc (06/18) Sepsis (View protocol) If YES complete Sepsis Event Note If YES complete Sepsis Event Note Attending MD Review Statement Attending Statement Attending MD Statement: examined this patient, discuss w/resident/PA/SPECTACLE TRUER, agreed w/resident/PA/SPECTACLE TRUER, discussed with family, reviewed EMR data (avail), discussed with nursing, amended to note Attending Assessment/Plan: 57-year-old female with past medical history significant for COPD not on home oxygen, emphysema, right lung mass stable follow up with Dr. Lopez, partial removal of left lung for complicated pneumonia who was seen in the emergency room 3 days ago with right elbow swelling and pain. She was found to have acute bursitis that was drained. Cultures have not grown anything. Patient was prescribed Keflex and Percocet and was sent home. She claims that her pain never improved. She started to notice redness this morning which has spread. She denies any fevers or chills. She has limited range of motion at her right elbow. She denies any trauma to the elbow. She has been taking Keflex and Percocet but no relief at all. In fact it got worse. In the emergency room she came in and found to have leukocytosis. As I mentioned culture from that drainage had remained negative. Patient was given IV vancomycin in the emergency room. Vital Signs Date Time Temp Pulse Resp B/P B/P Pulse O2 O2 Flow FiO2 Mean Ox Delivery Rate 05/05 1549 Room Air 05/05 1548 86 18 127/63 93 Room Air 05/05 1311 98.4 112 16 143/85 94 Room Air on exam; aox3, nad. cv; s1, s2, rrr resp; clear abd; soft, nt, bs+ ext; no edema skin: Right elbow with swelling, erythema and limited range of motion with some fluctuance. Laboratory Tests 05/05 1320 Chemistry Sodium (137 - 145 mmol/L) 139 Potassium (3.5 - 5.1 mmol/L) 4.2 Chloride (98 - 107 mmol/L) 103 Carbon Dioxide (22 - 30 mmol/L) 26 Anion Gap (5 - 16) 10 BUN (7 - 17 mg/dL) 20 H Creatinine (0.5 - 1.0 mg/dL) 0.5 Estimated GFR (>60 ml/min) > 60 BUN/Creatinine Ratio (7 - 25 %) 40.0 H Glucose (65 - 99 mg/dL) 132 H Calcium (8.4 - 10.2 mg/dL) 10.1 C-Reactive Prot, Quant (<1.0 mg/dL) 4.2 H Hematology CBC w Diff NO MAN DIFF REQ WBC (4.8 - 10.8 /CUMM) 15.3 H RBC (4.20 - 5.40 /CUMM) 4.99 Hgb (12.0 - 16.0 G/DL) 15.4 Hct (37 - 47 %) 45.2 MCV (81.0 - 99.0 FL) 90.7 MCH (27.0 - 31.0 PG) 30.8 MCHC (33.0 - 37.0 G/DL) 34.0 RDW (11.5 - 14.5 %) 13.9 Plt Count (130 - 400 /CUMM) 228 MPV (7.4 - 10.4 FL) 8.1 Gran % (42.2 - 75.2 %) 74.5 Lymphocytes % (20.5 - 51.1 %) 18.4 L Monocytes % (1.7 - 9.3 %) 5.0 Eosinophils % (0 - 5 %) 1.2 Basophils % (0.0 - 2.0 %) 0.9 Absolute Granulocytes (1.4 - 6.5 /CUMM) 11.4 H Absolute Lymphocytes (1.2 - 3.4 /CUMM) 2.8 Absolute Monocytes (0.10 - 0.60 /CUMM) 0.8 H Absolute Eosinophils (0.0 - 0.7 /CUMM) 0.2 Absolute Basophils (0.0 - 0.2 /CUMM) 0.1 ESR Westergren (0 - 20 MM) 15 A/P; 57-year-old female with past medical history significant for COPD not on home oxygen, emphysema, right lung mass, follow-up with Dr. Lopez who was recently seen in the emergency room with a right olecranon bursitis status post drainage. Now admitted with failed outpatient treatment. This is likely septic bursitis with cellulitis but we need to rule out septic arthritis. Drainage from 3 days ago has not grown any growth. Patient will be admitted to medicine. She received IV vancomycin in the emergency room. She was prescribed Keflex as an outpatient but she had failed that. Therefore at this point I will continue the IV vancomycin. Patient needs x-ray of her right elbow as well as ultrasound to see if there is any abscess formation. Please consult orthopedic. Pain management pathway. Please continue her home inhalers and TRC nebs. Pharmacologic DVT prophylaxis and she is a full code. D/W family at bedside.
--- NOTE | 2018-05-05 20:10 | RADIOLOGY REPORT ---
EXAMINATION: XR ELBOW, RIGHT CLINICAL INFORMATION: Assess for bony lesion. Symptoms presenting like right elbow bursitis versus septic arthritis. COMPARISON: None TECHNIQUE: Two views of the right elbow. FINDINGS: No fracture or dislocation. No periosteal reaction or cortical erosion. No cartilage space narrowing. There is no evidence of elbow joint effusion. Soft tissue prominence along the posterior elbow, particularly in the region overlying the olecranon. IMPRESSION: Nonspecific soft tissue prominence along the posterior elbow. Diagnostic considerations include olecranon bursitis or cellulitis.
[2018-05-05 22:16] VITALS: BP 154/74
[2018-05-06 06:02] VITALS: BP 134/82
[2018-05-06 07:52] LABS: ABSOLUTE BASOPHIL COUNT 0 /CUMM (0.0-0.2); ABSOLUTE EOSINOPHIL COUNT 0.2 /CUMM (0.0-0.7); ABSOLUTE LYMPH COUNT 1.9 /CUMM (1.2-3.4); ABSOLUTE MONOCYTE COUNT 0.7 /CUMM (0.10-0.60); BASOPHIL % 0.2 % (0.0-2.0); EOSINOPHIL % 1.8 % (0-5); GRANULOCYTE % 77.5 % (42.2-75.2); MEAN CORPUSCULAR HGB 30.7 PG (27.0-31.0); MEAN CORPUSCULAR HGB CONC 33.7 G/DL (33.0-37.0); MEAN CORPUSCULAR VOLUME 91.2 FL (81.0-99.0); MEAN PLATELET VOLUME 8.7 FL (7.4-10.4); PLATELET COUNT 209 /CUMM (130-400); RBC DISTRIBUTION WIDTH 13.2 % (11.5-14.5); RED BLOOD CELL CT 4.94 /CUMM (4.20-5.40)
--- NOTE | 2018-05-06 10:35 | ULTRASOUND REPORT ---
EXAMINATION: US SUPERFICIAL IMAGING, EXTREMITY CLINICAL INFORMATION: Worsening elbow cellulitis. Infection. Septic bursitis? Evaluate for abscess. COMPARISON: Radiographs of right elbow, 05/05/2018 TECHNIQUE: Sonographic imaging of the superficial tissues overlying the olecranon was performed using a high-resolution linear 12 MHz transducer. FINDINGS: The olecranon bursa has a complex, multiloculated appearance, with multiple small fluid-filled spaces surrounded by thick septations, and the largest loculation is 0.4 cm in size. No large, drainable pocket is identified. The bursa measures 3.3 x 1.3 x 2.8 cm. Color Doppler images show hyperemic appearance of the surrounding soft tissues. There is edema within the subcutaneous tissues. IMPRESSION: Findings consistent with olecranon bursitis. The olecranon bursa has a complex, multiloculated appearance.
--- NOTE | 2018-05-06 10:44 | PN- Att Addend ---
Attending Addendum Attending Brief Note Patient seen and examined, she is not feeling better. She still complaining of pain and that the swelling has worsened in her right upper extremity and elbow. Patient underwent ultrasound and x-ray. She had remained afebrile and slight improvement in her leukocytosis. Vital Signs Date Time Temp Pulse Resp B/P B/P Pulse O2 O2 Flow FiO2 Mean Ox Delivery Rate 05/06 0800 Room Air 05/06 0602 97.9 93 20 134/82 90 / 2216 97.5 90 18 154/74 89 Room Air 05/05 2200 89 / 2120 98.0 82 20 36/88 94 Room Air 05/05 1914 97.9 86 20 142/77 95 Room Air 05/05 1549 Room Air 05/05 1548 86 18 127/63 93 Room Air 05/05 1311 98.4 112 16 143/85 94 Room Air on exam; aox3, nad. cv; s1, s2, rrr resp; clear abd; soft, nt, bs+ ext; no edema rheum/skin; + swelling on right elbow and right forearm, erythema has improved. Laboratory Tests 05/06 05/05 0612 1320 Chemistry Sodium (137 - 145 mmol/L) 138 139 Potassium (3.5 - 5.1 mmol/L) 4.3 4.2 Chloride (98 - 107 mmol/L) 104 103 Carbon Dioxide (22 - 30 mmol/L) 25 26 Anion Gap (5 - 16) 10 10 BUN (7 - 17 mg/dL) 12 20 H Creatinine (0.5 - 1.0 mg/dL) 0.4 L 0.5 Estimated GFR (>60 ml/min) > 60 > 60 BUN/Creatinine Ratio (7 - 25 %) 30.0 H 40.0 H Glucose (65 - 99 mg/dL) 132 H Calcium (8.4 - 10.2 mg/dL) 10.1 C-Reactive Prot, Quant (<1.0 mg/dL) 4.2 H Hematology CBC w Diff NO MAN DIFF REQ NO MAN DIFF REQ WBC (4.8 - 10.8 /CUMM) 13.0 H 15.3 H RBC (4.20 - 5.40 /CUMM) 4.94 4.99 Hgb (12.0 - 16.0 G/DL) 15.2 15.4 Hct (37 - 47 %) 45.0 45.2 MCV (81.0 - 99.0 FL) 91.2 90.7 MCH (27.0 - 31.0 PG) 30.7 30.8 MCHC (33.0 - 37.0 G/DL) 33.7 34.0 RDW (11.5 - 14.5 %) 13.2 13.9 Plt Count (130 - 400 /CUMM) 209 228 MPV (7.4 - 10.4 FL) 8.7 8.1 Gran % (42.2 - 75.2 %) 77.5 H 74.5 Lymphocytes % (20.5 - 51.1 %) 15.0 L 18.4 L Monocytes % (1.7 - 9.3 %) 5.5 5.0 Eosinophils % (0 - 5 %) 1.8 1.2 Basophils % (0.0 - 2.0 %) 0.2 0.9 Absolute Granulocytes (1.4 - 6.5 /CUMM) 10.0 H 11.4 H Absolute Lymphocytes (1.2 - 3.4 /CUMM) 1.9 2.8 Absolute Monocytes (0.10 - 0.60 /CUMM) 0.7 H 0.8 H Absolute Eosinophils (0.0 - 0.7 /CUMM) 0.2 0.2 Absolute Basophils (0.0 - 0.2 /CUMM) 0 0.1 ESR Westergren (0 - 20 MM) 15 A/P; 57-year-old female with past medical history significant for COPD not on home oxygen, emphysema, right lung mass, follow-up with Dr. Lopez who was recently seen in the emergency room with a right olecranon bursitis status post drainage. Now admitted with failed outpatient treatment. This is likely septic bursitis with cellulitis but we need to rule out septic arthritis. Drainage from 3 days ago has not grown any growth. Ultrasound and x-ray of the right arm consistent with complex olecranon bursitis with some loculations. There is also some soft tissue swelling. Patient was started on vancomycin yesterday because she has failed outpatient Keflex. So far her cultures have remained negative and her culture from the original olecranon bursa aspirate was also negative. Patient has been seen by orthopedic Dr. French. He plans to aspirate the bursa. Continue current antibiotics for now and follow-up on the cultures. Continue the rest of the medications. Pain management is done with Percocet and morphine. Patient has heparin subcu for DVT prophylaxis.
--- NOTE | 2018-05-06 10:56 | PN- Housestaff ---
Subjective Follow-up For: Bursitis Right elbow pain Subjective: Afebrile overnight. Patient complains of worsening swelling and pain in her right elbow and proximal forearm this morning. Patient notes she can not visualize any red streaking anymore in her arm. Patient notes decreased range of motion in her right arm and right hand due to the associated pain sensation. Patient denies any history of tick bites or trauma to the area. Patient spoke with Dr. French and would like to have the pain resolve as quickly as possible and is open to an I&D. Patient otherwise denies any fever, chills, fatigue, and shortness of breath. Review of Systems Constitutional: Reports: see HPI. Objective Last 24 Hrs of Vital Signs/I&O Vital Signs Date Time Temp Pulse Resp B/P B/P Pulse O2 O2 Flow FiO2 Mean Ox Delivery Rate 05/06 0800 Room Air 05/06 0602 97.9 93 20 134/82 90 / 2216 97.5 90 18 154/74 89 Room Air 05/05 2200 89 / 2120 98.0 82 20 36/88 94 Room Air 05/05 1914 97.9 86 20 142/77 95 Room Air 05/05 1549 Room Air 05/05 1548 86 18 127/63 93 Room Air / 1311 98.4 112 16 143/85 94 Room Air Intake & Output 05/06 1600 05/06 0800 05/06 0000 Intake Total 420 Output Total Balance 420 Intake, IV 300 Intake, Oral 120 Patient 179 lb Weight Weight Bed scale Measurement Method Physical Exam General Appearance: Alert, Oriented X3, Cooperative, Mild Distress Skin: Right elbow erythema and tenderness with assoc. distal swelling of the lateral forearm HEENT: Atraumatic Lymphatic: Axillary nl Cardiovascular: Regular Rate, Normal S1, Normal S2 Lungs: Clear to Auscultation, Normal Air Movement Abdomen: Soft, No Tenderness Neurological: Normal Speech, Decreased ROM in the right elbow, forearm, and hand with associated swelling Extremities: Normal Pulses Assessment/Plan Assessment: US Right Elbow: Findings consistent with olecranon bursitis. The olecranon bursa has a complex, multiloculated appearance. XRAY Right Elbow: Nonspecific soft tissue prominence along the posterior elbow. Diagnostic considerations include olecranon bursitis or cellulitis. #Bursitis with reactive effusion, Right elbow; assoc. with possible cellulitis - Admitted to general medicine for monitoring and assessment of vitals - Continue antibiotic therapy via Vancomycin IV q12h due to persistent sx. redness/swelling - WBC 15.3 -> 13.0; follow up CBC AM - Acetaminophen 650 mg q6p, Percocet 1 tab q6p, Morphine IV 4 mg q4p - Ultrasound right elbow indicates olecranan bursitis with a multiloculated appearance - Ortho consult (Dr. French) rec. either aspiration or I&D; if either, send for cultures to check for any growth - Pain management consultation #Home medications -Continue home medications DVT PPx. FC Problem List: 1. Bursitis 2. Elbow pain, right Pain Ratin Pain Location: Right elbow Pain Goal: Pain 7 or less Pain Plan: Pain meds as needed Tomorrow's Labs & Rationales: CBC
[2018-05-06 14:26] VITALS: BP 124/64
[2018-05-06 23:07] VITALS: BP 120/66
[2018-05-07 06:15] VITALS: BP 138/88
--- NOTE | 2018-05-07 07:22 | PN- Housestaff ---
Zee Webb 05/07/18 0722: Subjective Follow-up For: Bursitis Right elbow pain Subjective: Afebrile overnight. Patient notes pain in her right elbow with associated redness. Patient however mentions her swelling has markedly decreased. Patient states she had the I&D procedure yesterday at bedside with and that afterward she experienced one episode of vomiting due to the pain medications given. Patient however denies any current episodes of nausea or vomiting since the procedure. Patient notes her pain was a 9 out of 10 after the procedure and that this morning it is rated as a 7 out of 10. Patient agrees staying one more day to control her pain would be beneficial and waiting for the culture results. Patient reports chills this morning but further sierra any fevers, fatigue, diarrhea, constipation, and dyspnea. Review of Systems Constitutional: Reports: see HPI. Objective Last 24 Hrs of Vital Signs/I&O Vital Signs Date Time Temp Pulse Resp B/P B/P Pulse O2 O2 Flow FiO2 Mean Ox Delivery Rate 05/07 0615 98.3 90 20 138/88 92 05/06 2307 97.6 97 20 120/66 87 Room Air 05/06 1426 98.0 104 16 124/64 92 Room Air Intake & Output 05/07 1600 05/07 0800 08 0000 Intake Total 375 100 Output Total Balance 375 100 Intake, IV 275 Intake, Oral 100 100 Physical Exam General Appearance: Alert, Oriented X3, Cooperative, No Acute Distress Skin: right elbow erythema and swelling, tender to palpation HEENT: Atraumatic Neck: Supple, No JVD Cardiovascular: Regular Rate, Normal S1, Normal S2 Lungs: Clear to Auscultation, Normal Air Movement Abdomen: Soft, No Tenderness Neurological: Normal Speech Extremities: Normal Pulses Assessment/Plan Assessment: US Right Elbow: Findings consistent with olecranon bursitis. The olecranon bursa has a complex, multiloculated appearance. XRAY Right Elbow: Nonspecific soft tissue prominence along the posterior elbow. Diagnostic considerations include olecranon bursitis or cellulitis. #Bursitis with reactive effusion, Right elbow; assoc. with possible cellulitis - Admitted to general medicine for monitoring and assessment of vitals - Continue antibiotic therapy via Vancomycin IV q12h due to persistent sx. redness/swelling - WBC 14.5; follow up CBC AM - Acetaminophen 650 mg q6p, Percocet 1 tab q6p, Morphine IV 4 mg q4p - Ultrasound right elbow indicates olecranan bursitis with a multiloculated appearance - Ortho consult (Dr. French) performed I&D yesterday afternoon, body fluid culture result returned Gram Postive Cocci, awaiting identification of organism #Home medications -Continue home medications DVT PPx. FC Problem List: 1. Bursitis 2. Elbow pain, right Pain Ratin Pain Location: Right elbow Pain Goal: Pain 7 or less Pain Plan: Morphine/Percocet Tomorrow's Labs & Rationales: Routine Dave KEYS,Katherine 05/07/18 0942: Attending MD Review Statement Attending Statement Attending MD Statement: examined this patient, discuss w/resident/PA/TRAFFIC INCIDENT MANAGEMENT MANAGER, agreed w/resident/PA/TRAFFIC INCIDENT MANAGEMENT MANAGER, reviewed EMR data (avail), discussed with nursing, discussed with case mgmt, reviewed images Attending Assessment/Plan: 57-year-old female past medical history of COPD and lung mass who is here with a right olecranon bursitis having failed outpatient treatment. She status post I& D with orthopedics and is growing GPC's, we have her on IV Vanco and we are watching the white count. Will follow closely.
[2018-05-07 08:13] LABS: ABSOLUTE BASOPHIL COUNT 0 /CUMM (0.0-0.2); ABSOLUTE EOSINOPHIL COUNT 0.2 /CUMM (0.0-0.7); ABSOLUTE GRANULOCYTE CT 11.9 /CUMM (1.4-6.5); ABSOLUTE LYMPH COUNT 1.9 /CUMM (1.2-3.4); ABSOLUTE MONOCYTE COUNT 0.5 /CUMM (0.10-0.60); BASOPHIL % 0.2 % (0.0-2.0); EOSINOPHIL % 1.2 % (0-5); HEMATOCRIT 44.3 % (37-47); MEAN CORPUSCULAR HGB 30.6 PG (27.0-31.0); MEAN CORPUSCULAR HGB CONC 33.7 G/DL (33.0-37.0); MEAN CORPUSCULAR VOLUME 90.7 FL (81.0-99.0); MEAN PLATELET VOLUME 8.8 FL (7.4-10.4); PLATELET COUNT 226 /CUMM (130-400); RBC DISTRIBUTION WIDTH 13.3 % (11.5-14.5); RED BLOOD CELL CT 4.89 /CUMM (4.20-5.40); WHITE BLOOD CELL COUNT 14.5 /CUMM (4.8-10.8)
--- NOTE | 2018-05-07 09:52 | Discharge Summary ---
Visit Information Visit Dates Admission Date: 05/05/18 Discharge Date: 05/10/18 Hospital Course Course Attending Physician: Katherine Acosta MD Primary Care Physician: Patient Has No Primary Care Dr Consulting Request: Consulting Specialty: Orthopedics Consulting Physician: Dr. French Reason for Consult: Olecranon Bursitis Hospital Course: 57-year-old woman with a PMHx. of COPD, on 3 L of oxygen at home who presented to the ED with increasing pain and swelling of the right elbow, with the development of erythema and edema down the right forearm, 3 days after an aspiration of the right olecranon bursa in the ER on a prior visit within the same week, found to be afebrile with a leukocytosis, s/p repeat aspiration of the right olecranon bursa on the day after admission, with the culture positive for Staph aureus. US Right Elbow: Findings consistent with olecranon bursitis. The olecranon bursa has a complex, multiloculated appearance. XRAY Right Elbow: Nonspecific soft tissue prominence along the posterior elbow. Diagnostic considerations include olecranon bursitis or cellulitis. The etiology of the patient's clinical diagnosis is consistent with a right olecranon bursitis secondary to a Staph Aureus infection. The ultrasound of the right elbow revealed a multiloculated process and she does have persistent fluctuance at the right elbow, as a result, she may benefit from further drainage an an outpatient procedure with orthopedics. #Olecranon Bursitis, Right elbow; assoc. with Staph Aureus infection - Admitted to general medicine for monitoring and assessment of vitals - Received antibiotic therapy via Vancomycin IV q12h due to persistent sx. redness/swelling; d/c'ed Vancomycin and started Cefazolin IV q8h due to MSSA result, discharged on oral Keflex regimen - Acetaminophen 650 mg q6p, Percocet 1 tab q6p, Morphine IV 4 mg q4p - Ultrasound right elbow indicated olecranan bursitis with a multiloculated appearance - Ortho consult (Dr. French) performed I&D, body fluid culture result returned Staph Aureus, MSSA identification Allergies: Coded Allergies: NSAIDS (Non-Steroidal Anti-Inflamma (Severe, ANAPHYLAXIS 03/23/17) ibuprofen (Severe, ANAPHYLAXIS 03/23/17) Penicillins (Intermediate, RASH 03/23/17) codeine (Intermediate, RASH 12/15/16) gabapentin (Intermediate, SWOLLEN FEET 03/23/17) ketorolac (Intermediate, RASH\HIVES 03/23/17) Disposition Summary Disposition Principal Diagnosis: Olecranon Bursitis Additional Diagnosis: COPD Emphysema Discharge Disposition: home or self care Discharge Instructions General Discharge Information Code Status: Full Code Patient's Diet: Regular, as tolerated Patient's Activity: Resume normal activity, as tolerated Follow-Up Instructions/Appts: Please follow up with PCP in 7 days or sooner if return of any fever, chills, swelling, redness, or rash. Please follow up with Dr. French (Orthopedics) as an outpatient within 2 weeks. Please take all medications as prescribed. Medications at Discharge Discharge Medications: Stop taking the following medications: Oxycodone HCl/Acetaminophen (Percocet 5-325 MG Tablet) 5 MG-325 MG TABLET ORAL TWICE DAILY as needed for PAIN Qty = 10 Continue taking these medications: Fluoxetine HCl (Prozac) 20 MG CAPSULE 1 Capsule ORAL Every Morning Comments: Last Taken: 05/10/18 Time: 917AM Aripiprazole (Abilify) 10 MG TABLET 1 Tablet ORAL Every Morning Comments: Last Taken: 05/10/18 Time: 917AM Fluticasone/Salmeterol (Advair 250-50 Diskus) 250 MCG-50 MCG/DOSE BLST.W.DEV 1 Puff Inhale through mouth TWICE DAILY Comments: NOT GIVEN IN HOSPITAL Albuterol Sulfate (Albuterol Sulfate) 1.25 MG/3 ML VIAL.NEB 1 Vial Inhale Solution EVERY 4-6 HOURS as needed for Shortness of breath Qty = 150 Comments: NOT GIVEN Tiotropium [place] (Spiriva) 18 MCG CAP.W.DEV 1 Capsule Inhale through mouth DAILY Qty = 30 Comments: Last Taken: 05/10/18 Time: 917AM Albuterol Sulfate (Proair Hfa) 90 MCG HFA.AER.AD 2 Puff Inhale through mouth As Directed as needed for RESP. Comments: NOT GIVEN Cephalexin (Keflex) 500 MG CAPSULE 1 Capsule ORAL THREE TIMES DAILY Qty = 30 Comments: NEW MEDICATION This prescription has been renewed Start taking the following new medications: Cephalexin (Keflex) 500 MG CAPSULE 1 Capsule ORAL EVERY SIX HOURS Qty = 28 No Refills Instructions: Please complete the amount of keflex you have at home in addition to this script. Comments: NEW MEDICATION Oxycodone HCl/Acetaminophen (Percocet 5-325 MG Tablet) 5 MG-325 MG TABLET 1 Tablet ORAL EVERY 4 HOURS NEEDED as needed for PAIN, RIGHT ELBOW Qty = 30 No Refills Instructions: PLEASE AVOID OPERATING ANY HEAVY MACHINERY OR DRIVING WHILE ON THIS MEDICATION Comments: Last Taken: 05/10/18 Time: 917AM Copies To: Marlyn KEYS,Arlene French MD,Fernando Riley; NO PCP Attending MD Review Statement Documenting Attending: Dave KEYS,Katherine Carlisle
[2018-05-07 14:59] VITALS: BP 138/80
[2018-05-07 22:12] VITALS: BP 122/80
[2018-05-08 06:27] VITALS: BP 120/82
--- NOTE | 2018-05-08 07:20 | PN- Housestaff ---
Zee Webb 05/08/18 0719: Subjective Follow-up For: Bursitis Right elbow pain Subjective: Afebrile overnight. Patient mentions she slept well last night however her right elbow still is painful and has decreased range of motion. Patient mentions her right elbow is batch still operator but the pain has improved since yesterday, for which the pain medications are providing the most relief. Patient notes she did not work with OT yesterday because they did not come by to her room, but notes she has slightly improved mobility in her right arm and elbow. Patient reports chills but denies any fevers, fatigue, dyspnea, chest pain, and any other joint or muscle pain. Review of Systems Constitutional: Reports: see HPI. Objective Last 24 Hrs of Vital Signs/I&O Vital Signs Date Time Temp Pulse Resp B/P B/P Pulse O2 O2 Flow FiO2 Mean Ox Delivery Rate 05/08 627 98.2 86 20 120/82 90 Room Air 05/07 2212 98.0 76 20 122/80 88 Room Air 05/07 1600 Room Air 05/07 1459 98.1 91 20 138/80 90 Room Air Intake & Output 05/08 1600 05/08 0800 05/08 0000 Intake Total 1700 1000 Output Total Balance 1700 1000 Intake, IV 500 Intake, Oral 1200 1000 Number 0 0 Bowel Movements Physical Exam General Appearance: Alert, Oriented X3, Cooperative, No Acute Distress Skin: right elbow, olecranon swelling and erythema, reduced from prior HEENT: Atraumatic Neck: Supple, No JVD Cardiovascular: Regular Rate, Normal S1, Normal S2 Lungs: Clear to Auscultation, Normal Air Movement Abdomen: Soft, No Tenderness Neurological: Normal Speech, decreased ROM in right upper extremity Extremities: No Edema Assessment/Plan Assessment: US Right Elbow: Findings consistent with olecranon bursitis. The olecranon bursa has a complex, multiloculated appearance. XRAY Right Elbow: Nonspecific soft tissue prominence along the posterior elbow. Diagnostic considerations include olecranon bursitis or cellulitis. #Olecranon Bursitis with reactive effusion, Right elbow; assoc. with possible cellulitis - Admitted to general medicine for monitoring and assessment of vitals - Continue antibiotic therapy via Vancomycin IV q12h due to persistent sx. redness/swelling - Latest WBC 10.1 - Acetaminophen 650 mg q6p, Percocet 1 tab q6p, Morphine IV 4 mg q4p - Ultrasound right elbow indicates olecranan bursitis with a multiloculated appearance - Ortho consult (Dr. French) performed I&D, body fluid culture result returned Staph Aureus, awaiting further identification of MSSA or MRSA for proper antibiotic coverage #Home medications -Continue home medications DVT PPx. FC Problem List: 1. Bursitis 2. Elbow pain, right Pain Ratin Pain Location: right elbow Pain Goal: Pain 7 or less Pain Plan: pain meds, prn Tomorrow's Labs & Rationales: routine labs Dave KEYS,Katherine 05/08/18 1000: Attending MD Review Statement Attending Statement Attending MD Statement: examined this patient, discuss w/resident/PA/FOOD BEVERAGE ATTENDANT, agreed w/resident/PA/FOOD BEVERAGE ATTENDANT, reviewed EMR data (avail), discussed with nursing, discussed with case mgmt, reviewed images Attending Assessment/Plan: Patient still complaining of a lot of pain. Although on physical exam the erythema and swelling appears markedly better and the white count is gone to 10, 000. She is growing staph aureus and we are awaiting MSSA versus MRSA. We have her on IV vancomycin empirically for now and will follow closely.
[2018-05-08 09:48] LABS: ABSOLUTE BASOPHIL COUNT 0 /CUMM (0.0-0.2); ABSOLUTE EOSINOPHIL COUNT 0.2 /CUMM (0.0-0.7); ABSOLUTE GRANULOCYTE CT 7.5 /CUMM (1.4-6.5); ABSOLUTE LYMPH COUNT 1.8 /CUMM (1.2-3.4); ABSOLUTE MONOCYTE COUNT 0.5 /CUMM (0.10-0.60); BASOPHIL % 0.2 % (0.0-2.0); GRANULOCYTE % 74.7 % (42.2-75.2); HEMATOCRIT 47.3 % (37-47); MEAN CORPUSCULAR HGB 30.5 PG (27.0-31.0); MEAN CORPUSCULAR VOLUME 89.7 FL (81.0-99.0); MEAN PLATELET VOLUME 8.4 FL (7.4-10.4); PLATELET COUNT 204 /CUMM (130-400); RBC DISTRIBUTION WIDTH 13.5 % (11.5-14.5); RED BLOOD CELL CT 5.28 /CUMM (4.20-5.40); WHITE BLOOD CELL COUNT 10.1 /CUMM (4.8-10.8)
--- NOTE | 2018-05-08 10:33 | Patient Discharge Instructions ---
Discharge Instructions General Discharge Information You were seen/treated for: Olecranon Bursitis You had these procedures: Ultrasound, right elbow X-ray, right elbow Aspiration, right elbow Watch for these problems: Watch for any new or worsening redness, swelling, pain, and decreased range of motion in the right elbow. Special Instructions: Please follow up with a PCP in 7 days. Please follow up with technology infusion specialist in 2 weeks. Please follow up with Occupational therapy as needed. Please take all medications as prescribed: - please take keflex every 6 hours (you have been given 1 week supply in addition to the pills you have at home) Diet Continue normal diet: Yes Recommended Diet: Regular Activity Full Activity/No Limits: No Activity Self Limited: Yes Acute Coronary Syndrome Inclusion Criteria At DC or during hospital stay patient has or had the following: ACS DIAGNOSIS No Discharge Core Measures Meds if any: Prescribed or Continued at Discharge LAILA/ARB if EF <40% No Meds if any: NOT Prescribed or Continued at Discharge Congestive Heart Failure Inclusion Criteria At DC or during hospital stay patient has or had the following: CHF DIAGNOSIS No Discharge Core Measures Meds if any: Prescribed or Continued at Discharge Meds if any: NOT Prescribed or Continued at Discharge Cerebrovascular accident Inclusion Criteria At DC or during hospital stay patient has or had the following: CVA/TIA Diagnosis No Discharge Core Measures Meds if any: Prescribed or Continued at Discharge Meds if any: NOT Prescribed or Continued at Discharge Venous thromboembolism Inclusion Criteria VTE Diagnosis No VTE Type NONE VTE Confirmed by (Test) NONE Discharge Core Measures - Per Current guidelines, there needs to be overlap - treatment for the first 5 days of Warfarin therapy. - If discharged on Warfarin prior to 5 days of - overlap therapy, the patient will need to be - assessed for post discharge needs including - *Post discharge parental anticoagulation - *Warfarin and/or parental anticoagulation education - *Follow up date to check INR post discharge Meds if any: Prescribed or Continued at Discharge Note: Overlap Therapy is Warfarin and Anticoagulant Meds if any: NOT Prescribed or Continued at Discharge
[2018-05-08] MEDS ORDERED: KEFLEX500 M1 PO (11:50)
--- NOTE | 2018-05-08 12:14 | Cons- Infect Disease ---
General Information and HPI Consulting Request Date of Consult: 05/08/18 Requested By: Katherine Acosta MD Reason for Consult: Right olecranon bursitis Source of Information: patient History of Present Illness: This is a 57-year-old woman with a history of COPD, on 3 L of oxygen at home, seen in the emergency room 3 days prior to admission with the acute onset of right elbow pain and swelling, found to be afebrile, with aspiration of the right olecranon bursa yielding 5 cc of serosanguineous fluid, discharged on , with the final culture negative, admitted on May 05 after returning to the emergency room with increasing pain and swelling of the right elbow, with the development of erythema and edema down the right forearm, without any associated fevers or chills. On admission she was afebrile. Laboratory data revealed a white blood cell of 15,000, BUN/creatinine 20 and 0.5. X-ray of the right elbow reveals soft tissue prominence along the posterior elbow. An ultrasound of the right elbow on May 06 revealed a complex, multiloculated process in the right olecranon bursa. She was begun on Vancomycin. On May 06 she underwent aspiration of the right olecranon bursa at the bedside by Orthopedics, which has grown Staph aureus. She has remained afebrile since admission. Her white blood cell has been decreasing gradually and is normal today. She notes some improvement in the swelling and erythema of the right forearm but notes increased swelling and persistent pain in the right elbow, extending to the triceps area, with persistent chills. Allergies/Medications Allergies: Coded Allergies: NSAIDS (Non-Steroidal Anti-Inflamma (Severe, ANAPHYLAXIS 03/23/17) ibuprofen (Severe, ANAPHYLAXIS 03/23/17) Penicillins (Intermediate, RASH 03/23/17) codeine (Intermediate, RASH 12/15/16) gabapentin (Intermediate, SWOLLEN FEET 03/23/17) ketorolac (Intermediate, RASH\HIVES 03/23/17) Home Med List: Albuterol Sulfate (Proair Hfa) 90 MCG HFA.AER.AD 2 PUF INH AD PRN RESP. ( Reported) Albuterol Sulfate 1.25 MG/3 ML VIAL.NEB 1 Vial INH/MAGDALENA Q4-6 PRN Shortness of breath Aripiprazole (Abilify) 10 MG TABLET 1 TAB PO QAM MENTAL HEALTH (Reported) Cephalexin (Keflex) 500 MG CAPSULE 1 CAP PO BID INFECTION Fluoxetine HCl (Prozac) 20 MG CAPSULE 1 CAP PO QAM MENTAL HEALTH (Reported) Fluticasone/Salmeterol (Advair 250-50 Diskus) 250 MCG-50 MCG/DOSE BLST.W.DEV 1 PUF INH BID COPD/EMPHYSEMA (Reported) Tiotropium [place] (Spiriva) 18 MCG CAP.W.DEV 1 CAP INH DAILY Breathing Past History Travel History Traveled to [place] past 21 day No Medical History Blood Transfusion Hx: Yes Neurological: NONE EENT: NONE Cardiovascular: NONE Respiratory: COPD, emphysema Gastrointestinal: NONE Hepatic: NONE Renal: KIDNEY STONES Musculoskeletal: NONE Psychiatric: depression Endocrine: NONE Blood Disorders: NONE Cancer(s): NONE ENVIRONMENTAL ATTORNEY/Reproductive: NONE History of MRSA: No History of VRE: No History of CDIFF: No Isolation History: Standard Surgical History Surgical History: appendectomy, hysterectomy, partial removal of left lung appendicectomy Schwanoma(L4,5) removal in 1992 Family History Relations & Conditions If Any: MOTHER FHx: bipolar disorder FATHER FHx: prostate cancer SISTER FH: diabetes mellitus GRANDMOTHER FHx: ovarian cancer Psychosocial History Who Do You Live With? boyfriend and his son Services at Home: None Primary Language: Togolese Smoking Status: Current Everyday Smoker Living Will? no Functional Ability ADLs Independent: dressing, eating, toileting, bathing. Ambulation: independent IADLs Independent: shopping, housework, finances, food prep, telephone, transportation. Review of Systems Review of Systems All Other Systems: Reviewed and Negative Exam & Diagnostic Data Last 24 Hrs of Vital Signs/I&O Vital Signs Date Time Temp Pulse Resp B/P B/P Pulse O2 O2 Flow FiO2 Mean Ox Delivery Rate 05/08 0800 91 Room Air 05/08 0627 98.2 86 20 120/82 90 Room Air 05/07 2212 98.0 76 20 122/80 88 Room Air 05/07 1600 Room Air 05/07 1459 98.1 91 20 138/80 90 Room Air Intake & Output 05/08 1600 05/08 0800 05/08 0000 Intake Total 1700 1000 Output Total Balance 1700 1000 Intake, IV 500 Intake, Oral 1200 1000 Number 0 0 Bowel Movements Physical Exam Other Physical Findings: She is awake and alert in no acute distress. She is afebrile. Skin reveals no rash. HEENT exam is negative. Neck is supple with no adenopathy. Lungs decreased breath sounds bilaterally. Heart regular rhythm with no murmur. Abdomen is soft, nontender with positive bowel sounds. Back no CVA tenderness. Extremities right elbow swelling and fluctuance, tender on palpation with mild erythema, with normal range of motion of the right elbow; mild swelling and erythema of the right forearm; no cyanosis, clubbing or edema of the lower extremities. Neuro is without focality. Last 24 Hours of Lab Results: Laboratory Tests 05/08 0854 Chemistry Sodium (137 - 145 mmol/L) 137 Potassium (3.5 - 5.1 mmol/L) 4.5 Chloride (98 - 107 mmol/L) 103 Carbon Dioxide (22 - 30 mmol/L) 25 Anion Gap (5 - 16) 10 BUN (7 - 17 mg/dL) 17 Creatinine (0.5 - 1.0 mg/dL) 0.4 L Estimated GFR (>60 ml/min) > 60 BUN/Creatinine Ratio (7 - 25 %) 42.5 H Hematology CBC w Diff NO MAN DIFF REQ WBC (4.8 - 10.8 /CUMM) 10.1 RBC (4.20 - 5.40 /CUMM) 5.28 Hgb (12.0 - 16.0 G/DL) 16.1 H Hct (37 - 47 %) 47.3 H MCV (81.0 - 99.0 FL) 89.7 MCH (27.0 - 31.0 PG) 30.5 MCHC (33.0 - 37.0 G/DL) 34.0 RDW (11.5 - 14.5 %) 13.5 Plt Count (130 - 400 /CUMM) 204 MPV (7.4 - 10.4 FL) 8.4 Gran % (42.2 - 75.2 %) 74.7 Lymphocytes % (20.5 - 51.1 %) 18.3 L Monocytes % (1.7 - 9.3 %) 4.8 Eosinophils % (0 - 5 %) 2.0 Basophils % (0.0 - 2.0 %) 0.2 Absolute Granulocytes (1.4 - 6.5 /CUMM) 7.5 H Absolute Lymphocytes (1.2 - 3.4 /CUMM) 1.8 Absolute Monocytes (0.10 - 0.60 /CUMM) 0.5 Absolute Eosinophils (0.0 - 0.7 /CUMM) 0.2 Absolute Basophils (0.0 - 0.2 /CUMM) 0 Last 24 Hours of Dg Results: Blood cultures May 05 negative Right elbow fluid cultures May 06 positive for Staph aureus, sensitivities pending Diagnostic Data Recent Imaging Findings: X-ray of the right elbow reveals soft tissue prominence along the posterior elbow. Ultrasound of the right elbow on May 06 revealed a complex, multiloculated process in the right olecranon bursa. Assessment/Plan Assessment/Plan Impression: This is a 57-year-old woman with a history of COPD, on 3 L of oxygen at home, admitted on May 05 with increasing pain and swelling of the right elbow, with the development of erythema and edema down the right forearm, 3 days after an aspiration of the right olecranon bursa in the ER, found to be afebrile with a leukocytosis, status post repeat aspiration of the right olecranon bursa on the day after admission, with the culture positive for Staph aureus. Her clinical picture is consistent with a septic right olecranon bursitis secondary to Staph aureus, which is the causative organism in 90% of the cases. She does not appear to be at high risk for MRSA but she can be continued on Vancomycin pending final cultures. The ultrasound did reveal a multiloculated process and she does have persistent fluctuance at the right elbow; therefore, she may benefit from further drainage. It is not clear why the aspiration performed in the ER was negative as the gram stain did reveal many white blood cells. Suggestion: 1. Elevation of the right arm (with a sling attached to an IV pole if possible) 2. Orthopedic follow-up to evaluate need for further drainage (discussed with Dr. French) 3. Follow-up final culture of the bursal fluid 4. Continue Vancomycin pending above Consult Acknowledgment - Thank you for your consult request.
[2018-05-08 14:22] VITALS: BP 112/67
[2018-05-08 22:03] VITALS: BP 140/88
[2018-05-09 06:54] VITALS: BP 134/72
--- NOTE | 2018-05-09 07:47 | PN- Housestaff ---
Zee Webb 05/09/18 0747: Subjective Follow-up For: Bursitis Right elbow pain Subjective: Afebrile overnight. No acute events overnight. Patient states her right arm pain is still painful this morning rated as a 8 out of 10 but with the pain medications it relieves the pain down to a 3 out of 10. Patient however notes decreased swelling and redness in the area.Patient mentions she was able to elevate her right arm to decrease the swelling. Patient notes she has been able to use her right arm for a few activities and is currently using her right arm to eat breakfast. Patient spoke with Dr. French and will have an I&D procedure at bedside after 11:30 AM. Patient otherwise denies any fevers, chills, n/, diarrhea, and shortness of breath. Review of Systems Constitutional: Reports: see HPI. Objective Last 24 Hrs of Vital Signs/I&O Vital Signs Date Time Temp Pulse Resp B/P B/P Pulse O2 O2 Flow FiO2 Mean Ox Delivery Rate 05/09 0654 98.1 87 20 134/72 90 05/09 0000 Room Air 05/08 2203 97.7 76 20 140/88 89 05/08 1422 98.0 89 18 112/67 90 Room Air Intake & Output 05/09 1600 05/09 0800 05/09 0000 Intake Total 500 210 Output Total Balance 500 210 Intake, IV 250 10 Intake, Oral 250 200 Physical Exam General Appearance: Alert, Oriented X3, Cooperative, No Acute Distress Skin: right elbow erythema with swelling HEENT: Atraumatic Neck: Supple, No JVD Cardiovascular: Regular Rate, Normal S1, Normal S2 Lungs: Clear to Auscultation, Normal Air Movement Abdomen: Soft, No Tenderness Neurological: Normal Speech Extremities: No Edema, Normal Pulses Assessment/Plan Assessment: US Right Elbow: Findings consistent with olecranon bursitis. The olecranon bursa has a complex, multiloculated appearance. XRAY Right Elbow: Nonspecific soft tissue prominence along the posterior elbow. Diagnostic considerations include olecranon bursitis or cellulitis. #Olecranon Bursitis with reactive effusion, Right elbow; assoc. with possible cellulitis - Admitted to general medicine for monitoring and assessment of vitals - Cx. returned back MSSA - Discontinued Vancomycin IV q12h, started Cefazolin 1 g q8h for MSSA coverage - Latest WBC 10.1 - Acetaminophen 650 mg q6p, Percocet 1 tab q6p, Morphine IV 4 mg q4p - Ultrasound right elbow indicates olecranan bursitis with a multiloculated appearance - Ortho consult (Dr. French) performed aspiration, body fluid culture result returned Staph Aureus, awaiting further identification of MSSA or MRSA for proper antibiotic coverage - Dr. French performed I&D today 05/09 at bedside; patient's right elbow currently wrapped and elevated; sent latest I&d for gram stain and culture & sensitivity #Home medications -Continue home medications DVT PPx. FC Problem List: 1. Bursitis 2. Elbow pain, right Pain Ratin Pain Location: right elbow Pain Goal: Pain 7 or less Pain Plan: pain meds, prn Tomorrow's Labs & Rationales: routine as indicated Consulting Request: Consulting Specialty: Orthopedics Consulting Physician: Dr. French Reason for Consult: Olecranon Bursitis Dave KEYS,Katherine 05/09/18 0952: Attending MD Review Statement Attending Statement Attending MD Statement: examined this patient, discuss w/resident/PA/IP COUNSEL, agreed w/resident/PA/IP COUNSEL, reviewed EMR data (avail), discussed with nursing, discussed with case mgmt Attending Assessment/Plan: Continues to have pain and discomfort. She required almost 20 mg of morphine IV yesterday. She is growing MSSA in the bursa cultures and we are going to switch her to Ancef as she is pen allergic. Dr. Iraheta has requested Fernando French MD to come by and he likely do another drainage today.
--- NOTE | 2018-05-09 10:31 | PN- Infect Dx ---
Subjective Subjective: Afebrile. She continues to complain of pain in the right elbow. Objective Last 24 Hrs of Vital Signs/I&O Vital Signs Date Time Temp Pulse Resp B/P B/P Pulse O2 O2 Flow FiO2 Mean Ox Delivery Rate 05/09 0654 98.1 87 20 134/72 90 05/09 0000 Room Air 05/08 2203 97.7 76 20 140/88 89 05/08 1422 98.0 89 18 112/67 90 Room Air Intake & Output 05/09 1600 05/09 0800 05/09 0000 Intake Total 500 210 Output Total Balance 500 210 Intake, IV 250 10 Intake, Oral 250 200 Patient 178 lb Weight Physical Exam Other Physical Findings: She appears comfortable in no acute distress Extremities decreased swelling, with no evidence of fluctuance and minimal tenderness over the right elbow, with normal range of motion; decreased right forearm swelling and erythema Results Last 24 Hours of Lab Results: No labs from today Last 24 Hours of Dg Results: Right elbow cultures May 06 positive for Staph aureus sensitive to Oxacillin Blood cultures 2 May 05 negative Assessment/Plan ID Impression: Improved, with decreasing inflammation of the right forearm and elbow, on Vancomycin, Day 4 of treatment for a right septic olecranon bursitis, now 3 days status post drainage of the bursa. She is apparently scheduled for a repeat drainage later today by Orthopedics. Given that the Staph aureus is sensitive to Oxacillin her antibiotics can be adjusted. Suggestion: 1. Continue elevation of the right arm 2. Await further drainage of the right olecranon bursa per Ortho 3. Discontinue Vancomycin 4. Begin Cefazolin 1 g IV every 8 hours
[2018-05-09 15:03] VITALS: BP 110/85
[2018-05-09 21:20] VITALS: BP 146/80
[2018-05-10 06:32] VITALS: BP 120/68
--- NOTE | 2018-05-10 10:19 | PN- Housestaff ---
Zee Webb 05/10/18 1018: Subjective Follow-up For: Olecranon Bursitis Subjective: Afebrile overnight. No acute events overnight and is looking forward to being discharged today. Patient states her right arm pain is still painful this morning rated as a 8 out of 10. Patient states she is coping well with the change in pain management dosing. Patient denies any recent constipation or diarrhea. Patient otherwise denies any fevers, chills, n/, diarrhea, and shortness of breath. Review of Systems Constitutional: Reports: see HPI. Objective Last 24 Hrs of Vital Signs/I&O Vital Signs Date Time Temp Pulse Resp B/P B/P Pulse O2 O2 Flow FiO2 Mean Ox Delivery Rate 05/10 08 Room Air 05/10 0632 97.3 79 20 120/68 91 Room Air 05/09 2120 98.1 86 20 146/80 91 05/09 1600 Room Air 05/09 1503 97.5 88 15 110/85 90 Room Air Intake & Output 05/10 1600 05/10 0800 05/10 0000 Intake Total 270 450 Output Total 300 Balance -30 450 Intake, IV 30 Intake, Oral 240 450 Output, Urine 300 Physical Exam General Appearance: Alert, Oriented X3, Cooperative, No Acute Distress HEENT: Atraumatic Neck: Supple, No JVD Cardiovascular: Regular Rate, Normal S1, Normal S2 Lungs: Clear to Auscultation, Normal Air Movement Abdomen: Soft, No Tenderness Extremities: Normal Pulses Assessment/Plan Assessment: US Right Elbow: Findings consistent with olecranon bursitis. The olecranon bursa has a complex, multiloculated appearance. XRAY Right Elbow: Nonspecific soft tissue prominence along the posterior elbow. Diagnostic considerations include olecranon bursitis or cellulitis. #Olecranon Bursitis with reactive effusion, Right elbow; assoc. with possible cellulitis - Admitted to general medicine for monitoring and assessment of vitals - Cx. returned back MSSA - Discontinued Vancomycin IV q12h, started Cefazolin 1 g q8h for MSSA coverage - Latest WBC 10.1 - Acetaminophen 650 mg q6p, Percocet 1 tab q6p, Morphine IV 4 mg q4p - Ultrasound right elbow indicates olecranan bursitis with a multiloculated appearance - Ortho consult (Dr. French) performed aspiration, body fluid culture result returned Staph Aureus, awaiting further identification of MSSA or MRSA for proper antibiotic coverage - Dr. French performed I&D yesterday 05/09 at bedside; patient's right elbow currently wrapped and elevated; sent latest I&d for gram stain and culture & sensitivity; patient will be discharged today 05/10 on oral antibiotic Keflex regimen #Home medications -Continue home medications DVT PPx. FC Problem List: 1. Elbow pain, right 2. Bursitis Pain Ratin Pain Location: right elbow Pain Goal: Pain 7 or less Pain Plan: routine Tomorrow's Labs & Rationales: na Consulting Request: Consulting Specialty: Orthopedics Consulting Physician: Dr. French Reason for Consult: Olecranon Bursitis Dave KEYS,Katherine 05/10/18 1034: Attending MD Review Statement Attending Statement Attending MD Statement: examined this patient, discuss w/resident/PA/INSTRUMENTATION INSTRUCTOR, agreed w/resident/PA/INSTRUMENTATION INSTRUCTOR, reviewed EMR data (avail), discussed with nursing, discussed with case mgmt, reviewed images Attending Assessment/Plan: Overall patient is feeling better. Dr. French drained a lot of fluid from the right olecranon area and put a wick in. We spoke to Dr. Iraheta and the plan will be 2 weeks total of Keflex counting yesterday as day 1. We are also sending her out with 30 Percocet pills and arranging visiting nurse for wound care. I have explained to her clearly the need for close outpatient follow-up.
[2018-05-10] MEDS ORDERED: PERCOCET 5-3251 EACH PO (10:27)
[2018-05-10] MEDS ORDERED: KEFLEX500 M1 PO ×3 (10:27→11:22)
--- NOTE | 2018-05-10 10:51 | PN- Infect Dx ---
Subjective Subjective: Afebrile. She feels improved though still notes some discomfort in the right elbow. Objective Last 24 Hrs of Vital Signs/I&O Vital Signs Date Time Temp Pulse Resp B/P B/P Pulse O2 O2 Flow FiO2 Mean Ox Delivery Rate 05/10 800 Room Air 05/10 0632 97.3 79 20 120/68 91 Room Air 05/09 2120 98.1 86 20 146/80 91 05/09 1600 Room Air 05/09 1503 97.5 88 15 110/85 90 Room Air Intake & Output 05/10 1600 05/10 0805/10 0000 Intake Total 270 450 Output Total 300 Balance -30 450 Intake, IV 30 Intake, Oral 240 450 Output, Urine 300 Physical Exam Other Physical Findings: She appears comfortable in no acute distress Extremities decreased swelling of the right elbow, with a wick in place; decreased erythema and edema of the right forearm, with minimal tenderness Results Last 24 Hours of Lab Results: No labs from today Last 24 Hours of Dg Results: Right elbow culture May 09 negative Assessment/Plan ID Impression: Right elbow inflammation improved, status post further drainage of the right olecranon bursa at the bedside yesterday, now on Cefazolin, Day 5 of treatment for MSSA isolated from the initial bedside drainage by Orthopedics. Suggestion: 1. Discontinue Cefazolin 2. Begin Keflex 500 mg p.o. every 6 hours to plan on a total of 2 weeks of antibiotics from yesterday's drainage (until May 23)
== END 2018-05-10 12:05 | disposition home health service (06) | DRG 558 ==
LOC: ERH 13:07 → 2NA 20:27 → ERHI 20:27 → ENRESERV 20:49 → ENTRNSPT 21:20 → EDTRNSPT 21:26 → EDTRNSPTSTS 21:26 → 2NA 21:29 → CMPTRNSPT 21:47 → 2NA 05-07 08:03 → ENPENDDIS 05-10 11:36 → 2NA 05-10 12:05
PROVIDERS: Physician Assistant Medical; Student in an Organized Health Care Education/Training Program
DX: M71.121 Other infective bursitis, right elbow (principal); B95.61 Methicillin susceptible Staphylococcus aureus infection as the cause of diseases classified elsewhere; Z72.0 Tobacco use; J44.9 Chronic obstructive pulmonary disease, unspecified; R91.8 Other nonspecific abnormal finding of lung field; M25.421 Effusion, right elbow
CPT/HCPCS: 2NASP; 87075; 36415; 36592; 73070-RT; 76881; 82436; 87040; 87070; 87147; 96374; 96375; 96376; J0401; J0690; J1644; J2001; J3370; J3490; J7040